=== PATIENT | male | born 1950 | race Caucasian/White ===

== ENCOUNTER 2020-06-26 21:26 | Inpatient (IN) ==
[2020-06-26 21:36] LABS: ABG BASE EXCESS 7.1 mmol/L (-2.0-2.0)
[2020-06-26 21:37] LABS: ABG ALLEN TEST POS; ABG HCO3 31.3 mmol/L (22-26)
--- NOTE | 2020-06-26 21:43 | DR.SOBA ---
HPI - Time Seen Time seen: 21:39 - Complaints Chief Complaint Doctors Comments: Patient from [place] complaining of SOB with low O2 Sat at home in the 70 range as related by EMS. EMS states patient refused to go to the hospital in [place] and insisted on them bringing him to [place]. states they had set down for dinner when he started complaining of SOB and they were unable to get his O2 Sat up and they called the ambulance. EMS states the patient was on a non-rebreather at home with on 5 liters with 70% saturation. States they changed it to 4 liter [place] with O2 Sat coming up to 90. Patient has an IV in his right hand by home health because he was not eating or drinking much do to sores on his lip and on his mouth. He is complaining of lower abdominal pain. He is a patient of Dr. Costa. He denies tobacco, alcohol or drug usage. States he had open heart surgery 47 years ago. He was diagnosed with COVID and stayed in the hospital six days. 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 - COVID-19 Coronavirus risk:travel/contact w/high risk person: No Has patient experienced Coronavirus symptoms: Yes Coronavirus symptoms experienced: Fever, Shortness of Breath - Reviewed Nurses Notes Reviewed: Yes - Source History Provided: Patient, Family Member - Mode of Arrival Mode of Arrival: EMS - Duration Duration: Unknown - Context Onset:: At Rest PE Risk Factors:: None History of:: None Currently on:: Neither Prehospital Care:: O2 - Modifying Factors Worsens:: Nothing Improves:: Nothing - Associated Signs and Symptoms Associated Signs and Symptoms: None - If Cough Cough: None PMH - Travel Risk Coronavirus risk:travel/contact w/high risk person: No Has patient experienced Coronavirus symptoms: Yes Coronavirus symptoms experienced: Fever, Shortness of Breath ROS - Review of Systems Constitutional: No Symptoms Reported, Loss of Appetite (sore on right lower lip) Eyes: No Symptoms Reported ENTM: No Symptoms Reported Respiratoy: No Symptoms Reported, Short of Breath Cardiovascular: No Symptoms Reported. negative: See HPI, Chest Pain, Edema, Palpitations, Syncope, Cyanosis, Skin Mottling, Other Gastrointestinal/Abdominal: No Symptoms Reported, Abdominal Pain (suprapubic pain) Genitourinary: No Symptoms Reported, Pain Neurological: No Symptoms Reported Musculoskeletal: No Symptoms Reported Integumentary: No Symptoms Reported Hematologic/Lymphatic: No Symptoms Reported. negative: See HPI, Anemia, Blood Clots, Easy Bleeding, Easy Bruising, Swollen Glands, Lymphadenopathy, Other Endocrine: No Symptoms Reported Psychiatric: No Symptoms Reported. negative: See HPI, Anxiety, Depression, Hallucinations, Excessive crying, Suicidal, Other PE - General Limitations: No Limitations General Appearance: Alert, In Distress (moderate) - Head Head Exam: Normal Inspection, Atraumatic, Normocephalic - Eyes Eye exam: Normal Appearance, PERRL, EOMI. negative: Scleral Icterus, Conjunctival Injection, Nystagmus, Miosis, Mydrasis, Periorbital Swelling, Periorbital Tenderness, Other - ENT ENT Exam: Normal Exam, Normal Oropharynx, Normal External Ear Exam, Mucous Membranes Moist, Mucous Membranes Dry (right lower lip with 2 cm ulceration with white coating), TM's Normal Bilaterally, Other (dentures) - Neck Neck Exam: Normal Inspection, Full ROM, Trachea Midline. negative: Tenderness, Meningismus, Lymphadenopathy, Thyromegaly, Other - Chest Chest Inspection: Normal Inspection, Symmetric Chest Wall Rise. negative: Tenderness, Rash, Abscess, Other - Respiratory Respiratory Exam: Normal Lung Sounds Bilat Respiratory Exam: Bilateral Clear to Auscultation, Bilateral Decreased Breath Sounds - Cardiovascular Cardiovascular Exam: Regular Rate, Normal Rhythm, Normal Heart Sounds, Systolic Murmur - Abdominal Exam Abdominal Exam: Normal Inspection, Normal Bowel Sounds, Soft, Tenderness (suprapubic tenderness) Abdominal Tenderness: Suprapubic, Moderate - Extremities Extremities Exam: Normal Inspection, Full ROM, Normal Capillary Refill. negative: Tenderness (left lower leg with healing abrasions) - Back Back Exam: Normal Inspection, Full ROM. negative: Tenderness, (R) CVA Te nderness, (L) CVA Tenderness, Muscle Spasm, Paraspinal Tenderness, Vertebral Tenderness, Rashes, (R) Sciatic Notch Tenderness, (L) Sciatic Notch Tendern, (R) Straight Leg Raise, (L) Straight Leg Raise, Other - Neurologic Neurological Exam: Alert, Oriented X3, CN II-XII Intact, Reflexes Normal. negative: Normal Gait (gait not tested) - Psychiatric Psychiatric Exam: Normal Affect, Normal Mood - Skin Skin Exam: Warm, Dry, Intact, Normal Color. negative: Rash, Cyanosis, Diaphoresis, Erythema, Pallor, Mottled, Other - Vital Signs Vitals: Temperature 99.2 F Pulse Rate 90 Respiratory Rate 26 Blood Pressure 107/61 O2 Sat by Pulse Oximetry 97 Course - Reevaluation 1st: Improved - Consultation Called: 23:39 Call Returned: 23:44 (Dr. Mcgregor to admit give ROcephin, Zithromax and Solumedrole) - Education/Counseling Education/Counseling: Patient, Family Educated On: Treatment, Diagnosis, Needs for Follow Up ROR - Labs Reviewed Laboratory Results Reviewed?: Yes (All labs and x-ray results reviewed and discussed with patient and spouse) Result Diagrams: 06/26/20 21:50 06/26/20 21:50 - XRAY XRAY Interpreted by: Radiologist (CXR: Findings are concerning for multifocal pneumonia which may be sukperimposed on chronic interstitial changes) - EKG Rate: 89 [place]: Normal Rhythm: NSR Block: None Hypertrophy: LVH ST: Nonsp - Labs Reviewed Laboratory: WBC 6.1 X10^3/uL (3.6-10.0) 06/26/20 21:50 RBC 3.06 X10^6/uL (4.7-6.0) L 06/26/20 21:50 Hgb 10.0 g/dL (13.5-18.0) L 06/26/20 21:50 Hct 30.3 % (42.0-54.0) L 06/26/20 21:50 MCV 99.1 fL (80.0-100.0) 06/26/20 21:50 MCH 32.6 pg (27.0-34.0) 06/26/20 21:50 MCHC 32.9 g/dL (33.0-35.0) L 06/26/20 21:50 RDW 14.8 % (11.6-16.5) 06/26/20 21:50 Plt Count 207 X10^3/uL (150.0-450.0) 06/26/20 21:50 MPV 7.7 fL (7.4-11.0) 06/26/20 21:50 Neut % (Auto) 82.9 % (42.0-75.0) H 06/26/20 21:50 Lymph % (Auto) 8.8 % (21.0-51.0) L 06/26/20 21:50 Mcdowell % (Auto) 5.5 % (0.0-13.0) 06/26/20 21:50 Eos % (Auto) 2.6 % (0.9-2.9) 06/26/20 21:50 Baso % (Auto) 0.2 % (0.2-1.0) 06/26/20 21:50 Neut # (Auto) 5.0 x10^3/uL (2.2-4.8) H 06/26/20 21:50 Lymph # (Auto) 0.5 X10^3/uL (1.3-2.9) L 06/26/20 21:50 Mcdowell # (Auto) 0.3 x10^3/uL (0.3-0.8) 06/26/20 21:50 Eos # (Auto) 0.2 x10^3/uL (0.0-0.2) 06/26/20 21:50 Baso # (Auto) 0.0 X10^3/uL (0.0-0.1) 06/26/20 21:50 Absolute Nucleated RBC 0.0 /100WBC 06/26/20 21:50 PT 20.2 SECONDS (11.8-14.3) 06/26/20 21:50 INR Target Range - 06/26/20 21:50 INR 1.79 (0.8-1.3) H 06/26/20 21:50 APTT 67.0 SECONDS (22.9-36.5) H 06/26/20 21:50 PTT Comment - 06/26/20 21:50 Sample Site Lr 06/26/20 22:01 ABG pH 7.500 (7.35-7.45) H 06/26/20 22:01 ABG pCO2 41.0 mmHg (35.0-45.0) 06/26/20 22:01 ABG pO2 78.0 mmHg (80.0-100.0) L 06/26/20 22:01 ABG HCO3 32.0 mmol/L (22-26) H* 06/26/20 22:01 ABG O2 Saturation 97.0 % (90-100) 06/26/20 22:01 ABG Base Excess 8.1 mmol/L (-2.0-2.0) H 06/26/20 22:01 Mauro Test Pos 06/26/20 22:01 A-a Gradient 584.0 mmHg 06/26/20 22:01 FiO2 100.0 06/26/20 22:01 Blood Gas Comments Mere well sw 06/26/20 22:01 Sodium 134 mmol/L (136-145) L 06/26/20 21:50 Corrected Sodium TNP 06/26/20 21:50 Potassium 4.4 mmol/L (3.5-5.1) 06/26/20 21:50 Chloride 99 mmol/L (98-107) 06/26/20 21:50 Carbon Dioxide 29.9 mmol/L (21-32) 06/26/20 21:50 BUN 16 mg/dL (7-18) 06/26/20 21:50 Creatinine 1.04 mg/dL (0.70-1.30) 06/26/20 21:50 Est GFR (MDRD) Af Amer > 60 (>60) 06/26/20 21:50 Est GFR (MDRD) Non-Af > 60 (>60) 06/26/20 21:50 Glucose 94 mg/dL (65-99) 06/26/20 21:50 Calcium 8.5 mg/dL (8.5-10.1) 06/26/20 21:50 Corrected Calcium 10.3 mg/dL (8.5-10.1) H 06/26/20 21:50 Magnesium 2.2 mg/dL (1.7-2.9) 06/26/20 21:50 Total Bilirubin 0.60 mg/dL (0.2-1.0) 06/26/20 21:50 AST 32 Units/L (15-37) 06/26/20 21:50 ALT 16 Units/L (12-78) 06/26/20 21:50 Alkaline Phosphatase 105 Units/L (46-116) 06/26/20 21:50 Creatine Kinase 87 Units/L (39-308) 06/26/20 21:50 CK-MB (CK-2) < 1.0 ng/mL (0-4.0) 06/26/20 21:50 CK/CKMB % Calc 1.2 % (<4) 06/26/20 21:50 Troponin I 0.02 ng/mL (0-1.5) 06/26/20 21:50 B-Natriuretic Peptide 488 pg/mL (0-79) H 06/26/20 21:50 Total Protein 6.1 g/dL (6.4-8.2) L 06/26/20 21:50 Albumin 1.8 g/dL (3.4-5.0) L 06/26/20 21:50 Globulin 4.3 g/dL (2.5-4.5) 06/26/20 21:50 Albumin/Globulin Ratio 0.4 Ratio (1.1-2.1) L 06/26/20 21:50 Amylase 70 Units/L (25-115) 06/26/20 21:50 Lipase 51 Units/L (73-393) L 06/26/20 21:50 Specimen Type Catherized urine 06/26/20 21:43 Urine Color Yellow (YELLOW) 06/26/20 21:43 Urine Appearance Cloudy (CLEAR) 06/26/20 21:43 Urine pH 5.0 (5.0 - 8.0) 06/26/20 21:43 Ur Specific Eva 1.025 (1.000-1.030) 06/26/20 21:43 Urine Protein 3+ (NEGATIVE) 06/26/20 21:43 Urine Glucose (UA) Negative (NEGATIVE) 06/26/20 21:43 Urine Ketones Negative (NEGATIVE) 06/26/20 21:43 Urine Occult Blood 4+ (NEGATIVE) 06/26/20 21:43 Urine Nitrite Negative (NEGATIVE) 06/26/20 21:43 Urine Bilirubin Negative (NEGATIVE) 06/26/20 21:43 Urine Urobilinogen Normal (NORMAL) 06/26/20 21:43 Ur Leukocyte Esterase 3+ (NEGATIVE) 06/26/20 21:43 Urine RBC 0-2 /HPF (0-3) 06/26/20 21:43 Urine WBC Tntc /HPF (0-5) A 06/26/20 21:43 Ur Squamous Epith Cells Negative /HPF (NEGATIVE) 06/26/20 21:43 Urine Bacteria 3+ /HPF (NEGATIVE) 06/26/20 21:43 Urine Mucus Moderate /HPF (NEGATIVE) 06/26/20 21:43 Ur Culture Indicated? Yes/culture set up 06/26/20 21:43 SARS-CoV-2 (PCR) Positive (NEGATIVE) A 06/26/20 22:11 Influenza Type A (PCR) Negative (NEGATIVE) 06/26/20 22:11 Influenza Type B (PCR) Negative (NEGATIVE) 06/26/20 22:11 RSV (PCR) Negative (NEGATIVE) 06/26/20 22:11 - XRAY Xray Findings: CT abdomen/pelvis: Rectal wall thickening suggesting possible proctitis. Bibasilar infiltrates with bronchiectasis. (JACINTO DANIELSON) Opioid - Opioid Risk Tool Age (Spike box if 16-45): No Total: 0 Total Score Risk Category: Low Risk - Diagnosis Discharge Problem: Hypoxemia, Multifocal pneumonia, COVID-19 virus infection, Acute urinary retention, Stomatitis, ulcerative Urinary tract infection Qualifiers: Encounter type: initial encounter Pulmonary embolism Qualifiers: Chronicity: unspecified Acute cor pulmonale presence: unspecified - Discharge Plan Disposition: ADMITTED INPATIENT Condition: Stable - Follow ups/Referrals Follow ups/Referrals: MAURO COSTA [Primary Care Provider] - 3 days - Instructions
[2020-06-26 22:21] LABS: BASOPHILS % (AUTO) 0.2 % (0.2-1.0); EOSINOPHILS # (AUTO) 0.2 x10^3/uL (0.0-0.2); EOSINOPHILS % (AUTO) 2.6 % (0.9-2.9); HEMATOCRIT 30.3 % (42.0-54.0); LYMPHOCYTES # (AUTO) 0.5 X10^3/uL (1.3-2.9); LYMPHOCYTES % (AUTO) 8.8 % (21.0-51.0); MEAN CORPUSCULAR HEMOGLOBIN 32.6 pg (27.0-34.0); MEAN CORPUSCULAR HGB CONC 32.9 g/dL (33.0-35.0); MEAN CORPUSCULAR VOLUME 99.1 fL (80.0-100.0); MEAN PLATELET VOLUME 7.7 fL (7.4-11.0); MONOCYTES # (AUTO) 0.3 x10^3/uL (0.3-0.8); MONOCYTES % (AUTO) 5.5 % (0.0-13.0); NEUTROPHILS % (AUTO) 82.9 % (42.0-75.0); PLATELET COUNT 207 X10^3/uL (150.0-450.0); RED BLOOD COUNT 3.06 X10^6/uL (4.7-6.0); RED CELL DISTRIBUTION WIDTH 14.8 % (11.6-16.5); WHITE BLOOD COUNT 6.1 X10^3/uL (3.6-10.0)
[2020-06-26 22:25] LABS: ABG BASE EXCESS 8.1 mmol/L (-2.0-2.0)
[2020-06-26 22:26] LABS: ABG ALLEN TEST POS
[2020-06-26 22:28] LABS: BILIRUBIN,URINE NEGATIVE (NEGATIVE); BLOOD/HEMOGLOBIN,URINE 4+ (NEGATIVE); GLUCOSE, URINE NEGATIVE (NEGATIVE); KETONES,URINE NEGATIVE (NEGATIVE); LEUKOCYTE ESTERASE ,URINE 3+ (NEGATIVE); NITRITES,URINE NEGATIVE (NEGATIVE); PROTEIN,URINE 3+ (NEGATIVE); UROBILINOGEN,URINE NORMAL (NORMAL)
[2020-06-26 22:35] LABS: BLOOD UREA NITROGEN 16 mg/dL (7-18); CALCIUM 8.5 mg/dL (8.5-10.1); CARBON DIOXIDE 29.9 mmol/L (21-32); CHLORIDE 99 mmol/L (98-107); CREATININE 1.04 mg/dL (0.70-1.30); SODIUM 134 mmol/L (136-145); TROPONIN I 0.02 ng/mL (0-1.5); eGFR NON BLACK RACES > 60 (>60)
[2020-06-26 22:39] LABS: ALANINE AMINOTRANSFERASE 16 Units/L (12-78); ALBUMIN 1.8 g/dL (3.4-5.0); ALKALINE PHOSPHATASE 105 Units/L (46-116); AMYLASE 70 Units/L (25-115); ASPARTATE AMINO TRANSFERASE 32 Units/L (15-37); CKMB % 1.2 % (<4); COR CA(FOR HYPOALB) 10.3 mg/dL (8.5-10.1); CREATINE KINASE 87 Units/L (39-308); CREATINE KINASE MB < 1.0 ng/mL (0-4.0); LIPASE 51 Units/L (73-393); MAGNESIUM 2.2 mg/dL (1.7-2.9); TOTAL PROTEIN 6.1 g/dL (6.4-8.2)
[2020-06-26 22:44] LABS: APPEARANCE,URINE CLOUDY (CLEAR); BACTERIA,URINE 3+ /HPF (NEGATIVE); COLOR,URINE YELLOW (YELLOW); MUCUS,URINE MODERATE /HPF (NEGATIVE); RBC,URINE 0-2 /HPF (0-3); SQUAMOUS EPITHELIAL CELL,UR NEGATIVE /HPF (NEGATIVE)
--- NOTE | 2020-06-26 22:52 | RAD ---
HISTORYShortness of breathSTUDYCHEST, 1 VIEWCOMPARISONNone availableTECHNIQUEChest radiographic imaging, AP portable projection, 1 imageFINDINGSNo cardiomegaly.Status post median sternotomy.Diffuse increased interstitial markings and bilateral diffuse hazy airspace opacities.No pleural effusion.No pneumothorax.No acute osseous abnormality.IMPRESSIONFindings are concerning for multifocal pneumonia which may be a superimposed on chronic interstitial changes.Electronically signed by: Joseph Lazo (Jun 26, 2020 22:49:53)
[2020-06-26] MEDS ORDERED: ROCEPHIN VIAL 1 GRAM 1 G in NS 100 ML IV + SPIKE MINIBAG* 100 ML IV ONE (23:03)
[2020-06-26] MEDS ORDERED: LASIX IVP STA (23:04)
[2020-06-26] MEDS ORDERED: LASIX ONE (23:06)
[2020-06-26] MEDS ORDERED: NS 100 ML IV + SPIKE MINIBAG* 100 ML IV ONE (23:06)
[2020-06-26] MEDS ORDERED: ROCEPHIN VIAL 1 GRAM ONE (23:06)
--- NOTE | 2020-06-26 23:14 | CT ---
HISTORYAbdominal painSTUDYABDOMEN/PELVIS W/O CONCOMPARISONNoneTECHNIQUEMultiple axial images of the abdomen and pelvis were obtained from the lung bases to the pubic symphysis without the administration of IV contrast. Dose reduction techniques including Automated Exposure Control (AEC) and adjustment of mA and kV were utilized.FINDINGSThe visualized portions of the lung bases demonstrate none bibasilar infiltrates with bronchiectasis. No pleural effusion. Coronary artery calcification.. The liver, spleen, pancreas, kidneys, and adrenal glands are unremarkable in their CT appearance. The gallbladder is unremarkable in its CT appearance . No significant mesenteric lymphadenopathy or stranding can be observed. No free fluid or free air is seen within the abdomen. There is mild rectal wall thickening.. The colon is unremarkable. Specifically, there is no diverticulosis noted within the sigmoid colon. There is a Mehta catheter within the urinary bladder a as well as air likely related to catheterization. The bony structures are grossly intact.IMPRESSIONRectal wall thickening suggesting possible proctitis. Correlate clinically.Bibasilar infiltrates with bronchiectasis.Electronically signed by: Oneil Maddox (Jun 26, 2020 23:12:30)
[2020-06-26] MEDS ORDERED: PHARMACY CONSULT - IVERMECTIN XX SCH (23:45)
[2020-06-27] MEDS ORDERED: IVERMECTIN PO SCH (01:00)
[2020-06-27] MEDS ORDERED: RESTORIL CAP 15 MG PO PRN (01:57)
[2020-06-27] MEDS: ZITHROMAX INJ 500 MG VIAL 500 MG in NS 250 ML IV 250 ML IV SCH ×2 (02:19→22:58)
[2020-06-27] MEDS: NS 1000 ML 1,000 ML IV SCH ×2 (02:21→23:02)
[2020-06-27] MEDS ORDERED: MILK OF MAGNESIA PO PRN (02:26)
[2020-06-27] MEDS: ASCORBIC ACID INJ MULTI-DOSE VIAL 1,500 MG in NS 100 ML IV 100 ML IV SCH ×4 (02:38→21:00)
[2020-06-27] MEDS: BROVANA IN SCH ×3 (02:40→21:24)
[2020-06-27] MEDS: PULMICORT NEB TX 0.5 MG NEB SCH ×3 (02:40→21:32)
[2020-06-27 04:53] LABS: BASOPHILS % (AUTO) 0.7 % (0.2-1.0); EOSINOPHILS # (AUTO) 0.1 x10^3/uL (0.0-0.2); EOSINOPHILS % (AUTO) 1.7 % (0.9-2.9); HEMATOCRIT 29.8 % (42.0-54.0); HEMOGLOBIN 9.9 g/dL (13.5-18.0); LYMPHOCYTES # (AUTO) 0.8 X10^3/uL (1.3-2.9); LYMPHOCYTES % (AUTO) 14.2 % (21.0-51.0); MEAN CORPUSCULAR HEMOGLOBIN 32.6 pg (27.0-34.0); MEAN CORPUSCULAR HGB CONC 33.1 g/dL (33.0-35.0); MEAN CORPUSCULAR VOLUME 98.5 fL (80.0-100.0); MONOCYTES # (AUTO) 0.3 x10^3/uL (0.3-0.8); MONOCYTES % (AUTO) 5.7 % (0.0-13.0); NEUTROPHILS # (AUTO) 4.3 x10^3/uL (2.2-4.8); NEUTROPHILS % (AUTO) 77.7 % (42.0-75.0); PLATELET COUNT 184 X10^3/uL (150.0-450.0); RED BLOOD COUNT 3.02 X10^6/uL (4.7-6.0); RED CELL DISTRIBUTION WIDTH 14.7 % (11.6-16.5); WHITE BLOOD COUNT 5.6 X10^3/uL (3.6-10.0)
[2020-06-27 05:10] LABS: ALANINE AMINOTRANSFERASE 15 Units/L (12-78); ALBUMIN 1.7 g/dL (3.4-5.0); ALKALINE PHOSPHATASE 99 Units/L (46-116); ASPARTATE AMINO TRANSFERASE 28 Units/L (15-37); BLOOD UREA NITROGEN 14 mg/dL (7-18); CALCIUM 8.2 mg/dL (8.5-10.1); CARBON DIOXIDE 30.5 mmol/L (21-32); CHLORIDE 100 mmol/L (98-107); CREATININE 0.99 mg/dL (0.70-1.30); SODIUM 138 mmol/L (136-145); TOTAL PROTEIN 5.8 g/dL (6.4-8.2); eGFR NON BLACK RACES > 60 (>60)
[2020-06-27 05:19] LABS: ABG BASE EXCESS 8.2 mmol/L (-2.0-2.0)
[2020-06-27 05:21] LABS: ABG ALLEN TEST POS; ABG HCO3 33.9 mmol/L (22-26)
[2020-06-27] MEDS: IVERMECTIN PO SCH (05:44)
[2020-06-27] MEDS: ATIVAN TAB 1 MG PO SCH ×3 (05:44→23:02)
[2020-06-27] MEDS ORDERED: NYSTATIN SUSP PO SCH (06:00)
[2020-06-27] MEDS ORDERED: TRICOR TAB 160 MG ONE (07:18)
[2020-06-27] MEDS ORDERED: THIAMINE HCL INJ ONE (07:18)
[2020-06-27] MEDS ORDERED: PEPCID TAB 20 MG ONE (07:18)
[2020-06-27] MEDS ORDERED: PLAVIX ONE (07:18)
[2020-06-27] MEDS ORDERED: ELIQUIS ONE (07:18)
[2020-06-27] MEDS ORDERED: VITAMIN D (1.25MG) PO ONE (07:19)
[2020-06-27] MEDS: THIAMINE HCL INJ IVP SCH ×2 (08:59→21:00)
[2020-06-27] MEDS: TRICOR TAB 160 MG PO SCH (08:59)
[2020-06-27] MEDS ORDERED: VITAMIN A PO SCH (09:00)
[2020-06-27] MEDS: PEPCID TAB 40 MG PO SCH ×2 (09:00→23:04)
[2020-06-27] MEDS: ELIQUIS PO SCH ×2 (09:00→21:00)
[2020-06-27] MEDS ORDERED: VITAMIN D (1.25MG) PO SCH (09:00)
[2020-06-27] MEDS: PLAVIX PO SCH (09:00)
[2020-06-27] MEDS: COREG TAB 6.25 MG PO SCH ×2 (09:01→23:06)
[2020-06-27] MEDS: SOLU-Medrol 40 MG VIAL IVP SCH ×4 (09:03→23:03)
[2020-06-27] MEDS ORDERED: MORPHINE SULFATE INJ 2 MG INJ ONE (11:17)
[2020-06-27 11:33] LABS: ABG BASE EXCESS 10.2 mmol/L (-2.0-2.0)
[2020-06-27 11:36] LABS: ABG ALLEN TEST POS
[2020-06-27] MEDS: MORPHINE SULFATE INJ 2 MG INJ IVP PRN ×3 (12:03→23:06)
[2020-06-27 12:55] LABS: ABG BASE EXCESS 8.4 mmol/L (-2.0-2.0)
[2020-06-27 12:56] LABS: ABG ALLEN TEST POS
--- NOTE | 2020-06-27 14:24 | DR.H&P ---
H&P - History & Physical for Day of: H&P Date: 06/27/20 - Chief Complaint Chief Complaint: SOB, WEAKNESS - History of Present Illness History of Present Illness: Patient from [place] complaining of SOB with low O2 Sat at home in the 70 range as related by EMS. EMS states patient refused to go to the hospital in [place] and insisted on them bringing him to [place]. states they had set down for dinner when he started complaining of SOB and they were unable to get his O2 Sat up and they called the ambulance. EMS states the patient was on a non-rebreather at home with on 5 liters with 70% saturation. States they changed it to 4 liter [place] with O2 Sat coming up to 90. Patient has an IV in his right hand by home health because he was not eating or drinking much do to sores on his lip and on his mouth. He is complaining of lower abdominal pain. He is a patient of Dr. Bagley. He denies tobacco, alcohol or drug usage. States he had open heart surgery 47 years ago. He was diagnosed with COVID and stayed in the hospital six days. 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 - Past Medical History Past Medical History: Anxiety, Coronary Artery Disease, Hypertension - Past Surgical History Surgical History: CABG/Valve Surgery, Ortho Surgery Additional Surgical History: CARDIAC STENTING IN 2011 AND 2015 - Social History Does patient currently use any type of tobacco product: No Have you used tobacco products in the last 12 months: No Type of Tobacco Use: None Does any household member use tobacco: No Alcohol Use: None Drug Use: None - Medications Home Medications: No Known Drug Allergies Allergy (Verified 06/26/20 21:29) CONTINUE taking the following medications amlodipine 5 mg PO DAILY 06/26/20 [History] apixaban [Eliquis] 5 mg PO BID 06/26/20 [History] baclofen 20 mg PO BID 06/26/20 [History] carvedilol [Coreg] 6.25 mg PO BID 06/26/20 [History] citalopram 40 mg PO HS 06/26/20 [History] clopidogrel 75 mg PO DAILY 06/26/20 [History] gabapentin 100 mg PO TID 06/26/20 [History] hydrocodone-acetaminophen 1 tab PO TID 06/26/20 [History] linaclotide [Linzess] 1 mcg PO BID 06/26/20 [History] lorazepam 1 mg PO BID 06/26/20 [History] nystatin 15 ml BUCCAL DIRECTED 06/26/20 [History] ondansetron HCl [Zofran] 8 mg PO Q8H 06/26/20 [History] rosuvastatin [Crestor] 10 mg PO DAILY 06/26/20 [History] tramadol 50 mg PO BID PRN 06/26/20 [History] - Review of Systems Constitutional: Weakness, Malaise Eyes: No Symptoms Reported ENT: No Symptoms Reported Respiratory: Shortness of Breath, SOB with Excertion Cardiovascular: Light Headedness Gastrointestinal: Nausea, Abdominal Pain Genitourinary: No Symptoms Reported Musculoskeletal: No Symptoms Reported Skin: No Symptoms Reported Neurological: Weakness - Physical Exam Vital Signs: Temperature 98.7 F Pulse Rate 96 Respiratory Rate 39 Blood Pressure 98/59 O2 Sat by Pulse Oximetry 91 Oriented: Person Eyes: Normal Ear: Normal Nose: Normal Throat: Normal Respiratory: Diminished Throughout, RLL Diminished, LLL Diminished Cardiovascular: Tachycardia. negative: Edema Auscultation: Bowel Sounds: Normal Palpation: Normal Tenderness: Normal Skin: Decreased Turg[place], Wound (DEEP ABRASION WITH THICK SCABBING TO LEFT CARTER), Bruising Musculoskeletal: Leg, Instability Mood Description: Anxious Affect: Anxious Speech Pattern: Clear, Appropriate - Assessment/Plan (1) Hypoxemia Status: Acute Plan: ADMIT, ICU SUPPLEMENTAL O2, CONTINUOUS CARDIAC MONITORING. CONTINUE AN TICOAGULANT THERAPY, EKG, CXR AND BLOOD GAS ON ADMISSION. STRICT I&OS, BC AND UC. VERIFY HOME MEDICATION, ISOLATION, IV ATBX THERAPY (2) Multifocal pneumonia Status: Acute (3) COVID-19 virus infection Status: Acute (4) Acute urinary retention Status: Acute (5) Pulmonary embolism Qualifiers: Chronicity: unspecified Acute cor pulmonale presence: unspecified Status: Acute (6) Stomatitis, ulcerative Status: Acute (7) CAD (coronary artery disease) Status: Acute - Allergies Allergies/Adverse Reactions: Allergies Allergy/AdvReac Type Severity Reaction Status Date / Time No Known Drug Allergies Allergy Verified 06/26/20 21:29
[2020-06-27] MEDS ORDERED: OFIRMEV IV 1000 MG VIAL 1,000 MG/100 ML VIAL IV ONE (16:11)
[2020-06-27] MEDS ORDERED: OFIRMEV IV 1000 MG VIAL 1,000 MG/100 ML VIAL IV PRN (16:26)
[2020-06-27 18:28] LABS: ABG HCO3 35.6 mmol/L (22-26)
[2020-06-27 18:53] VITALS: BMI 21.4
[2020-06-27] MEDS: ROCEPHIN VIAL 1 GRAM 1 G in NS 100 ML IV + SPIKE MINIBAG* 100 ML IV SCH (21:00)
[2020-06-27] MEDS: MELATONIN PO SCH (21:00)
[2020-06-27] MEDS: CELEXA PO SCH (23:06)
[2020-06-28] MEDS: ASCORBIC ACID INJ MULTI-DOSE VIAL 1,500 MG in NS 100 ML IV 100 ML IV SCH ×4 (03:00→21:45)
[2020-06-28] MEDS: SOLU-Medrol 40 MG VIAL IVP SCH ×4 (04:30→20:30)
[2020-06-28 05:40] LABS: ABG BASE EXCESS 8.6 mmol/L (-2.0-2.0)
[2020-06-28 05:41] LABS: ABG ALLEN TEST POS; ABG HCO3 34.5 mmol/L (22-26)
[2020-06-28] MEDS: ATIVAN TAB 1 MG PO SCH ×3 (05:42→21:00)
[2020-06-28 06:08] LABS: BASOPHILS % (AUTO) 0.3 % (0.2-1.0); HEMATOCRIT 26.9 % (42.0-54.0); HEMOGLOBIN 9.2 g/dL (13.5-18.0); LYMPHOCYTES # (AUTO) 0.4 X10^3/uL (1.3-2.9); MEAN CORPUSCULAR HEMOGLOBIN 33.5 pg (27.0-34.0); MEAN CORPUSCULAR HGB CONC 34.2 g/dL (33.0-35.0); MEAN CORPUSCULAR VOLUME 97.9 fL (80.0-100.0); MEAN PLATELET VOLUME 8.2 fL (7.4-11.0); MONOCYTES # (AUTO) 0.1 x10^3/uL (0.3-0.8); NEUTROPHILS # (AUTO) 2.5 x10^3/uL (2.2-4.8); NEUTROPHILS % (AUTO) 83.7 % (42.0-75.0); PLATELET COUNT 184 X10^3/uL (150.0-450.0); RED BLOOD COUNT 2.75 X10^6/uL (4.7-6.0); RED CELL DISTRIBUTION WIDTH 14.7 % (11.6-16.5)
--- NOTE | 2020-06-28 06:12 | RAD ---
HISTORYPNEUMONIASTUDYCHEST, 1 [id number]/2021FINDINGSThe trachea is midline. The cardiac silhouette is unremarkable. Diffuse increased interstitial markings with bilateral airspace opacities. No pleural effusion or pneumothorax. Median sternotomy wires present.. The bony thorax is unremarkable.IMPRESSIONBilateral airspace opacities consistent with multifocal pneumonia.No significant change from previous 06/26/2020lectronically signed by: Oneil Maddox (Jun 28, 2020 06:11:14)
[2020-06-28 06:23] LABS: ALANINE AMINOTRANSFERASE 14 Units/L (12-78); ALBUMIN 1.6 g/dL (3.4-5.0); ALKALINE PHOSPHATASE 102 Units/L (46-116); ASPARTATE AMINO TRANSFERASE 23 Units/L (15-37); BLOOD UREA NITROGEN 15 mg/dL (7-18); CALCIUM 8.4 mg/dL (8.5-10.1); CARBON DIOXIDE 32.9 mmol/L (21-32); CHLORIDE 105 mmol/L (98-107); COR CA(FOR HYPOALB) 10.3 mg/dL (8.5-10.1); COR NA(FOR HYPERGLY) 144 mmol/L (136-145); CREATININE 0.82 mg/dL (0.70-1.30); SODIUM 143 mmol/L (136-145); TOTAL PROTEIN 5.7 g/dL (6.4-8.2); eGFR NON BLACK RACES > 60 (>60)
[2020-06-28] MEDS: BROVANA IN SCH ×2 (08:55→21:39)
[2020-06-28] MEDS: PULMICORT NEB TX 0.5 MG NEB SCH ×2 (09:02→21:48)
[2020-06-28] MEDS: COREG TAB 6.25 MG PO SCH ×2 (09:29→22:08)
[2020-06-28] MEDS: PEPCID TAB 40 MG PO SCH ×2 (09:30→20:31)
[2020-06-28] MEDS: ELIQUIS PO SCH ×2 (09:30→20:31)
[2020-06-28] MEDS: IVERMECTIN PO SCH (09:30)
[2020-06-28] MEDS: THIAMINE HCL INJ IVP SCH ×2 (09:31→20:30)
[2020-06-28] MEDS: TRICOR TAB 160 MG PO SCH (09:31)
[2020-06-28] MEDS: PLAVIX PO SCH (09:31)
[2020-06-28] MEDS: VITAMIN D3 125 mcg (5,000 UNITS) PO SCH (09:32)
[2020-06-28] MEDS: VITAMIN A PO SCH (09:32)
[2020-06-28] MEDS: MORPHINE SULFATE INJ 2 MG INJ IVP PRN ×3 (10:59→20:15)
[2020-06-28] MEDS: ROBITUSSIN (PLAIN) PO SCH ×3 (14:13→20:31)
[2020-06-28] MEDS: DULCOLAX TAB EC 5 MG PO SCH ×2 (14:13→20:31)
[2020-06-28] MEDS: NYSTATIN SUSP PO PRN ×2 (14:15→19:16)
[2020-06-28] MEDS: MAALOX or MYLANTA PO PRN (15:29)
[2020-06-28] MEDS: CELEXA PO SCH (20:30)
[2020-06-28] MEDS: ROCEPHIN VIAL 1 GRAM 1 G in NS 100 ML IV + SPIKE MINIBAG* 100 ML IV SCH (20:30)
[2020-06-28] MEDS: MELATONIN PO SCH (20:31)
[2020-06-28] MEDS: ZITHROMAX INJ 500 MG VIAL 500 MG in NS 250 ML IV 250 ML IV SCH (22:31)
[2020-06-29] MEDS: MORPHINE SULFATE INJ 2 MG INJ IVP PRN ×4 (00:17→23:08)
[2020-06-29] MEDS: BUTT CREAM (COMPOUND) TOP PRN ×2 (01:27→10:14)
[2020-06-29] MEDS: SOLU-Medrol 40 MG VIAL IVP SCH ×4 (03:59→20:00)
[2020-06-29] MEDS: ASCORBIC ACID INJ MULTI-DOSE VIAL 1,500 MG in NS 100 ML IV 100 ML IV SCH ×4 (03:59→20:00)
[2020-06-29 05:27] LABS: ABG BASE EXCESS 11.4 mmol/L (-2.0-2.0)
[2020-06-29 05:28] LABS: ABG ALLEN TEST POS; ABG HCO3 36.5 mmol/L (22-26)
[2020-06-29 05:28] LABS: BASOPHILS % (AUTO) 0.3 % (0.2-1.0); HEMATOCRIT 29.7 % (42.0-54.0); HEMOGLOBIN 9.7 g/dL (13.5-18.0); LYMPHOCYTES # (AUTO) 0.5 X10^3/uL (1.3-2.9); LYMPHOCYTES % (AUTO) 8.4 % (21.0-51.0); MEAN CORPUSCULAR HEMOGLOBIN 32.4 pg (27.0-34.0); MEAN CORPUSCULAR HGB CONC 32.8 g/dL (33.0-35.0); MEAN PLATELET VOLUME 8.5 fL (7.4-11.0); MONOCYTES # (AUTO) 0.2 x10^3/uL (0.3-0.8); MONOCYTES % (AUTO) 2.6 % (0.0-13.0); NEUTROPHILS # (AUTO) 5.3 x10^3/uL (2.2-4.8); NEUTROPHILS % (AUTO) 88.7 % (42.0-75.0); PLATELET COUNT 204 X10^3/uL (150.0-450.0); RED CELL DISTRIBUTION WIDTH 15.1 % (11.6-16.5)
[2020-06-29 05:54] LABS: ALANINE AMINOTRANSFERASE 16 Units/L (12-78); ALBUMIN 1.6 g/dL (3.4-5.0); ALKALINE PHOSPHATASE 96 Units/L (46-116); ASPARTATE AMINO TRANSFERASE 22 Units/L (15-37); BLOOD UREA NITROGEN 20 mg/dL (7-18); CALCIUM 8.4 mg/dL (8.5-10.1); CHLORIDE 104 mmol/L (98-107); COR CA(FOR HYPOALB) 10.3 mg/dL (8.5-10.1); COR NA(FOR HYPERGLY) 144 mmol/L (136-145); CREATININE 0.88 mg/dL (0.70-1.30); SODIUM 143 mmol/L (136-145); TOTAL PROTEIN 5.6 g/dL (6.4-8.2); eGFR NON BLACK RACES > 60 (>60)
[2020-06-29] MEDS: ATIVAN TAB 1 MG PO SCH ×3 (06:00→21:00)
--- NOTE | 2020-06-29 06:12 | RAD ---
HISTORYFollow-up COVID-19STUDYChest AP [id number]/08/2021FINDINGSPatient is rotated to the right. Patient is status post median st ernotomy. The heart is upper limits normal in size. Diffuse bilateral interstitial and ground-glass i nfiltrates are unchanged. No pleural effusions are identified. Bony thorax is unremarkable.IMPRESSION No change diffuse bilateral interstitial and some ground-glass infiltrates when compared with the lacey or examinationElectronically signed by: MANOJ BURKS (Jun 29, 2020 06:11:55)
[2020-06-29] MEDS: NS 1000 ML 1,000 ML IV SCH (06:26)
[2020-06-29] MEDS: ELIQUIS PO SCH ×2 (09:04→20:00)
[2020-06-29] MEDS: DULCOLAX TAB EC 5 MG PO SCH ×2 (09:04→20:00)
[2020-06-29] MEDS: IVERMECTIN PO SCH (09:05)
[2020-06-29] MEDS: TRICOR TAB 160 MG PO SCH (09:05)
[2020-06-29] MEDS: THIAMINE HCL INJ IVP SCH ×2 (09:05→20:00)
[2020-06-29] MEDS: ROBITUSSIN (PLAIN) PO SCH ×4 (09:06→20:53)
[2020-06-29] MEDS: PEPCID TAB 40 MG PO SCH ×2 (09:06→20:00)
[2020-06-29] MEDS: PLAVIX PO SCH (09:06)
[2020-06-29] MEDS: VITAMIN A PO SCH (09:07)
[2020-06-29] MEDS: VITAMIN D3 125 mcg (5,000 UNITS) PO SCH (09:07)
[2020-06-29] MEDS: PULMICORT NEB TX 0.5 MG NEB SCH ×2 (09:36→20:36)
[2020-06-29] MEDS: BROVANA IN SCH ×2 (09:40→20:36)
[2020-06-29] MEDS: TYLENOL 325 MG TAB PO PRN (10:17)
[2020-06-29] MEDS: NYSTATIN SUSP PO PRN (10:30)
[2020-06-29] MEDS: NORCO 10/325 TAB PO PRN ×2 (12:40→18:30)
[2020-06-29] MEDS: COREG TAB 6.25 MG PO SCH ×2 (18:00→22:28)
--- NOTE | 2020-06-29 18:26 | PCM.PROG ---
Progress Note - Progress Note for Day of Date of Exam: 06/29/20 - Subjective Subjective: Mr. Webster is a 69-year-old white male who came in the ER with COVID-19 pneumonia with hypoxia. He was diagnosed with COVID-19 approximately three weeks ago. He had previously been at [facility] and was discharged home. The patient became more short of breath and was also diagnosed with PE while he was at [facility] in [place] and was started on Eliquis. We resumed the patients home medications after admission. He does have a history of coronary artery disease and is followed by Dr. Chapin Stanford and Kristin from [place]. Pt is currently tolerating HHF with PO2 at 69 this am. Pt was resting calm this am with spouse reporting he has had increased po intake. Pt denies any chest pain, ECHO ordered for this am. - Past Medical Family Social History Past Med/Fam/Surg Hx: No changes since H&P Allergies: Allergies No Known Drug Allergies Allergy (Verified 06/26/20 21:29) - Review of Systems ROS: No change since H&P - Vital Signs and I&O's Vital Signs: Temperature 97.3 F Pulse Rate 64 Respiratory Rate 22 Blood Pressure 113/57 O2 Sat by Pulse Oximetry 93 Intake and Output: Intake & Output 06/27/20 06/28/20 06/29/20 06/30/20 11:59 11:59 11:59 11:59 Intake Total 812 / 812 1206 / 1206 1955 / 1955 979 / 979 Output Total 1250 / 1250 680 / 680 600 / 600 250 / 250 Balance -438 / -438 526 / 526 1355 / 1355 729 / 729 - Physical Exam Oriented: Person Eyes: Normal Ear: Normal Nose: Normal Throat: Normal Respiratory: Diminished, Wheezes Cardiovascular: Normal. negative: Edema Auscultation: Bowel Sounds: Normal Tenderness: Normal Skin: Decreased Turgur, Wound (DEEP ABRASION WITH THICK SCABBING TO LEFT CARTER), Bruising Musculoskeletal: Leg, Instability Mood Description: Anxious Affect: Anxious Speech Pattern: Clear, Appropriate - Laboratory and Diagnostics Result Diagrams: 06/29/20 04:45 06/29/20 04:45 Labs: 06/27/20 06:09 Sputum - Expectorated Sputum Sputum Culture - Final 06/27/20 06:09 Sputum - Expectorated Sputum - Final 06/26/20 21:43 Urine,Catheterized Urine Culture - Final Enterococcus Faecalis 06/26/20 22:00 Blood Blood Culture - Preliminary 06/26/20 21:50 Blood Blood Culture - Preliminary Laboratory WBC 6.0 X10^3/uL (3.6-10.0) 06/29/20 04:45 RBC 3.00 X10^6/uL (4.7-6.0) L 06/29/20 04:45 Hgb 9.7 g/dL (13.5-18.0) L 06/29/20 04:45 Hct 29.7 % (42.0-54.0) L 06/29/20 04:45 MCV 99.0 fL (80.0-100.0) 06/29/20 04:45 MCH 32.4 pg (27.0-34.0) 06/29/20 04:45 MCHC 32.8 g/dL (33.0-35.0) L 06/29/20 04:45 RDW 15.1 % (11.6-16.5) 06/29/20 04:45 Plt Count 204 X10^3/uL (150.0-450.0) 06/29/20 04:45 MPV 8.5 fL (7.4-11.0) 06/29/20 04:45 Neut % (Auto) 88.7 % (42.0-75.0) H 06/29/20 04:45 Lymph % (Auto) 8.4 % (21.0-51.0) L 06/29/20 04:45 [place] % (Auto) 2.6 % (0.0-13.0) 06/29/20 04:45 Eos % (Auto) 0.0 % (0.9-2.9) L 06/29/20 04:45 Baso % (Auto) 0.3 % (0.2-1.0) 06/29/20 04:45 Neut # (Auto) 5.3 x10^3/uL (2.2-4.8) H 06/29/20 04:45 Lymph # (Auto) 0.5 X10^3/uL (1.3-2.9) L 06/29/20 04:45 [place] # (Auto) 0.2 x10^3/uL (0.3-0.8) L 06/29/20 04:45 Eos # (Auto) 0.0 x10^3/uL (0.0-0.2) 06/29/20 04:45 Baso # (Auto) 0.0 X10^3/uL (0.0-0.1) 06/29/20 04:45 Absolute Nucleated RBC 0.0 /100WBC 06/29/20 04:45 PT 20.2 SECONDS (11.8-14.3) 06/26/20 21:50 INR Target Range - 06/26/20 21:50 INR 1.79 (0.8-1.3) H 06/26/20 21:50 APTT 67.0 SECONDS (22.9-36.5) H 06/26/20 21:50 PTT Comment - 06/26/20 21:50 D-Dimer 2.26 ug/ml (0.0-0.57) H* 06/29/20 04:50 Sample Site Lrad 06/29/20 05:25 ABG pH 7.480 (7.35-7.45) H 06/29/20 05:25 ABG pCO2 49.0 mmHg (35.0-45.0) H 06/29/20 05:25 ABG pO2 70.0 mmHg (80.0-100.0) L 06/29/20 05:25 ABG HCO3 36.5 mmol/L (22-26) H* 06/29/20 05:25 ABG O2 Saturation 95.0 % (90-100) 06/29/20 05:25 ABG Base Excess 11.4 mmol/L (-2.0-2.0) H 06/29/20 05:25 Mauro Test Pos 06/29/20 05:25 A-a Gradient 332.0 mmHg 06/29/20 05:25 FiO2 65.0 06/29/20 05:25 Blood Gas Comments Mere abg well-mtf 06/29/20 05:25 Sodium 143 mmol/L (136-145) 06/29/20 04:45 Corrected Sodium 144 mmol/L (136-145) 06/29/20 04:45 Potassium 4.0 mmol/L (3.5-5.1) 06/29/20 04:45 Chloride 104 mmol/L (98-107) 06/29/20 04:45 Carbon Dioxide 33.0 mmol/L (21-32) H 06/29/20 04:45 BUN 20 mg/dL (7-18) H 06/29/20 04:45 Creatinine 0.88 mg/dL (0.70-1.30) 06/29/20 04:45 Est GFR (MDRD) Af Amer > 60 (>60) 06/29/20 04:45 Est GFR (MDRD) Non-Af > 60 (>60) 06/29/20 04:45 Glucose 157 mg/dL (65-99) H 06/29/20 04:45 POC Glucose (mg/dL) 94 mg/dL (65-99) 06/27/20 16:04 Calcium 8.4 mg/dL (8.5-10.1) L 06/29/20 04:45 Corrected Calcium 10.3 mg/dL (8.5-10.1) H 06/29/20 04:45 Magnesium 2.2 mg/dL (1.7-2.9) 06/26/20 21:50 Total Bilirubin 0.20 mg/dL (0.2-1.0) 06/29/20 04:45 AST 22 Units/L (15-37) 06/29/20 04:45 ALT 16 Units/L (12-78) 06/29/20 04:45 Alkaline Phosphatase 96 Units/L (46-116) 06/29/20 04:45 Creatine Kinase 87 Units/L (39-308) 06/26/20 21:50 CK-MB (CK-2) < 1.0 ng/mL (0-4.0) 06/26/20 21:50 CK/CKMB % Calc 1.2 % (<4) 06/26/20 21:50 Troponin I 0.02 ng/mL (0-1.5) 06/27/20 00:05 B-Natriuretic Peptide 411 pg/mL (0-79) H 06/29/20 04:45 Total Protein 5.6 g/dL (6.4-8.2) L 06/29/20 04:45 Albumin 1.6 g/dL (3.4-5.0) L 06/29/20 04:45 Globulin 4.0 g/dL (2.5-4.5) 06/29/20 04:45 Albumin/Globulin Ratio 0.4 Ratio (1.1-2.1) L 06/29/20 04:45 Amylase 70 Units/L (25-115) 06/26/20 21:50 Lipase 51 Units/L (73-393) L 06/26/20 21:50 Specimen Type Catherized urine 06/26/20 21:43 Urine Color Yellow (YELLOW) 06/26/20 21:43 Urine Appearance Cloudy (CLEAR) 06/26/20 21:43 Urine pH 5.0 (5.0 - 8.0) 06/26/20 21:43 Ur Specific [place] 1.025 (1.000-1.030) 06/26/20 21:43 Urine Protein 3+ (NEGATIVE) 06/26/20 21:43 Urine Glucose (UA) Negative (NEGATIVE) 06/26/20 21:43 Urine Ketones Negative (NEGATIVE) 06/26/20 21:43 Urine Occult Blood 4+ (NEGATIVE) 06/26/20 21:43 Urine Nitrite Negative (NEGATIVE) 06/26/20 21:43 Urine Bilirubin Negative (NEGATIVE) 06/26/20 21:43 Urine Urobilinogen Normal (NORMAL) 06/26/20 21:43 Ur Leukocyte Esterase 3+ (NEGATIVE) 06/26/20 21:43 Urine RBC 0-2 /HPF (0-3) 06/26/20 21:43 Urine WBC Tntc /HPF (0-5) A 06/26/20 21:43 Ur Squamous Epith Cells Negative /HPF (NEGATIVE) 06/26/20 21:43 Urine Bacteria 3+ /HPF (NEGATIVE) 06/26/20 21:43 Urine Mucus Moderate /HPF (NEGATIVE) 06/26/20 21:43 Ur Culture Indicated? Yes/culture set up 06/26/20 21:43 SARS-CoV-2 (PCR) Positive (NEGATIVE) A 06/26/20 22:11 Influenza Type A (PCR) Negative (NEGATIVE) 06/26/20 22:11 Influenza Type B (PCR) Negative (NEGATIVE) 06/26/20 22:11 RSV (PCR) Negative (NEGATIVE) 06/26/20 22:11 - Plan (1) Hypoxemia Status: Acute Plan: ICU SUPPLEMENTAL O2, CONTINUOUS CARDIAC MONITORING. CONTINUE ANTIC OAGULANT THERAPY, EKG, CXR AND BLOOD GAS ON AM. STRICT I&OS, BC AND UC. ISOLATION, IV ATBX THERAPY (2) Multifocal pneumonia Status: Acute (3) COVID-19 virus infection Status: Acute (4) Acute urinary retention Status: Acute (5) Pulmonary embolism Status: Acute Qualifiers: Chronicity: unspecified Acute cor pulmonale presence: unspecified (6) Stomatitis, ulcerative Status: Acute (7) CAD (coronary artery disease) Status: Acute
[2020-06-29] MEDS: CELEXA PO SCH (20:00)
[2020-06-29] MEDS: MELATONIN PO SCH (20:00)
[2020-06-29] MEDS ORDERED: DULCOLAX SUPPOSITORY 10 MG ONE (20:00)
[2020-06-29] MEDS: ROCEPHIN VIAL 1 GRAM 1 G in NS 100 ML IV + SPIKE MINIBAG* 100 ML IV SCH (20:53)
[2020-06-29] MEDS ORDERED: DULCOLAX SUPPOSITORY 10 MG RECTAL ONE (21:00)
[2020-06-29] MEDS ORDERED: ATIVAN INJ 2 MG VIAL IVP ONE (21:12)
[2020-06-29] MEDS ORDERED: ATIVAN INJ 2 MG VIAL ONE (21:14)
[2020-06-29 21:20] LABS: ABG BASE EXCESS 10.8 mmol/L (-2.0-2.0)
[2020-06-29 21:21] LABS: ABG ALLEN TEST POS; ABG HCO3 36.3 mmol/L (22-26)
[2020-06-29] MEDS: ZITHROMAX INJ 500 MG VIAL 500 MG in NS 250 ML IV 250 ML IV SCH (22:28)
[2020-06-29] MEDS: ATIVAN INJ 2 MG VIAL IVP PRN (23:08)
[2020-06-30] MEDS: NORCO 10/325 TAB PO PRN ×3 (00:30→14:50)
[2020-06-30] MEDS: ASCORBIC ACID INJ MULTI-DOSE VIAL 1,500 MG in NS 100 ML IV 100 ML IV SCH ×4 (03:00→20:44)
[2020-06-30] MEDS: SOLU-Medrol 40 MG VIAL IVP SCH ×4 (03:00→20:44)
[2020-06-30] MEDS: ATIVAN INJ 2 MG VIAL IVP PRN (03:00)
[2020-06-30] MEDS: NS 1000 ML 1,000 ML IV SCH ×2 (03:19→23:16)
[2020-06-30] MEDS: MORPHINE SULFATE INJ 2 MG INJ IVP PRN ×2 (03:20→22:30)
[2020-06-30 04:43] LABS: BASOPHILS % (AUTO) 0.4 % (0.2-1.0); HEMOGLOBIN 8.3 g/dL (13.5-18.0); LYMPHOCYTES # (AUTO) 0.4 X10^3/uL (1.3-2.9); LYMPHOCYTES % (AUTO) 5.8 % (21.0-51.0); MEAN CORPUSCULAR HEMOGLOBIN 32.6 pg (27.0-34.0); MEAN CORPUSCULAR HGB CONC 33.2 g/dL (33.0-35.0); MEAN CORPUSCULAR VOLUME 98.5 fL (80.0-100.0); MEAN PLATELET VOLUME 8.6 fL (7.4-11.0); MONOCYTES # (AUTO) 0.1 x10^3/uL (0.3-0.8); MONOCYTES % (AUTO) 1.9 % (0.0-13.0); NEUTROPHILS # (AUTO) 6.7 x10^3/uL (2.2-4.8); NEUTROPHILS % (AUTO) 91.9 % (42.0-75.0); PLATELET COUNT 215 X10^3/uL (150.0-450.0); RED BLOOD COUNT 2.54 X10^6/uL (4.7-6.0); RED CELL DISTRIBUTION WIDTH 14.9 % (11.6-16.5); WHITE BLOOD COUNT 7.3 X10^3/uL (3.6-10.0)
[2020-06-30 05:00] LABS: ALANINE AMINOTRANSFERASE 24 Units/L (12-78); ALBUMIN 1.7 g/dL (3.4-5.0); ALKALINE PHOSPHATASE 91 Units/L (46-116); ASPARTATE AMINO TRANSFERASE 38 Units/L (15-37); BLOOD UREA NITROGEN 19 mg/dL (7-18); CALCIUM 8.2 mg/dL (8.5-10.1); CARBON DIOXIDE 34.3 mmol/L (21-32); CHLORIDE 107 mmol/L (98-107); COR NA(FOR HYPERGLY) 146 mmol/L (136-145); CREATININE 0.81 mg/dL (0.70-1.30); SODIUM 145 mmol/L (136-145); TOTAL PROTEIN 5.3 g/dL (6.4-8.2); eGFR NON BLACK RACES > 60 (>60)
[2020-06-30 06:05] LABS: PLATELET MORPHOLOGY COMMENT NORMAL (NORMAL)
[2020-06-30] MEDS: ATIVAN TAB 1 MG PO SCH ×3 (06:18→21:18)
[2020-06-30 06:24] LABS: ABG BASE EXCESS 10.7 mmol/L (-2.0-2.0)
[2020-06-30 06:25] LABS: ABG ALLEN TEST POS; ABG HCO3 35.7 mmol/L (22-26)
[2020-06-30] MEDS: PULMICORT NEB TX 0.5 MG NEB SCH ×2 (08:15→20:55)
[2020-06-30] MEDS: BROVANA IN SCH ×2 (08:15→20:44)
[2020-06-30] MEDS: COREG TAB 6.25 MG PO SCH ×2 (09:31→20:44)
[2020-06-30] MEDS: DULCOLAX TAB EC 5 MG PO SCH ×2 (09:31→20:45)
[2020-06-30] MEDS: PLAVIX PO SCH (09:32)
[2020-06-30] MEDS: ELIQUIS PO SCH ×2 (09:32→20:44)
[2020-06-30] MEDS: IVERMECTIN PO SCH (09:32)
[2020-06-30] MEDS: PEPCID TAB 40 MG PO SCH ×2 (09:32→20:44)
[2020-06-30] MEDS: ROBITUSSIN (PLAIN) PO SCH ×5 (09:33→20:44)
[2020-06-30] MEDS: VITAMIN D3 125 mcg (5,000 UNITS) PO SCH (09:34)
[2020-06-30] MEDS: TRICOR TAB 160 MG PO SCH (09:34)
[2020-06-30] MEDS: VITAMIN A PO SCH (09:34)
[2020-06-30] MEDS: THIAMINE HCL INJ IVP SCH ×2 (09:34→20:44)
[2020-06-30] MEDS: CELEXA PO SCH (20:44)
[2020-06-30] MEDS: TYLENOL 325 MG TAB PO PRN (20:44)
[2020-06-30] MEDS: MELATONIN PO SCH (20:44)
[2020-06-30] MEDS: ROCEPHIN VIAL 1 GRAM 1 G in NS 100 ML IV + SPIKE MINIBAG* 100 ML IV SCH (21:18)
[2020-06-30] MEDS: ZITHROMAX INJ 500 MG VIAL 500 MG in NS 250 ML IV 250 ML IV SCH (23:00)
[2020-07-01] MEDS: ATIVAN INJ 2 MG VIAL IVP PRN ×2 (00:10→12:39)
[2020-07-01] MEDS: SOLU-Medrol 40 MG VIAL IVP SCH ×4 (03:22→20:28)
[2020-07-01] MEDS: ASCORBIC ACID INJ MULTI-DOSE VIAL 1,500 MG in NS 100 ML IV 100 ML IV SCH ×4 (03:22→20:00)
[2020-07-01] MEDS: MORPHINE SULFATE INJ 2 MG INJ IVP PRN ×2 (03:47→14:45)
[2020-07-01] MEDS: ATIVAN TAB 1 MG PO SCH ×3 (05:44→21:02)
[2020-07-01 05:47] LABS: ABG BASE EXCESS 12.5 mmol/L (-2.0-2.0)
[2020-07-01 05:48] LABS: ABG ALLEN TEST POS; ABG HCO3 37.4 mmol/L (22-26)
[2020-07-01 06:03] LABS: BASOPHILS % (AUTO) 0.1 % (0.2-1.0); HEMATOCRIT 26.4 % (42.0-54.0); HEMOGLOBIN 8.8 g/dL (13.5-18.0); LYMPHOCYTES # (AUTO) 0.4 X10^3/uL (1.3-2.9); LYMPHOCYTES % (AUTO) 6.3 % (21.0-51.0); MEAN CORPUSCULAR HEMOGLOBIN 32.8 pg (27.0-34.0); MEAN CORPUSCULAR HGB CONC 33.3 g/dL (33.0-35.0); MEAN CORPUSCULAR VOLUME 98.4 fL (80.0-100.0); MEAN PLATELET VOLUME 8.9 fL (7.4-11.0); MONOCYTES # (AUTO) 0.1 x10^3/uL (0.3-0.8); NEUTROPHILS % (AUTO) 91.6 % (42.0-75.0); PLATELET COUNT 221 X10^3/uL (150.0-450.0); RED BLOOD COUNT 2.68 X10^6/uL (4.7-6.0); RED CELL DISTRIBUTION WIDTH 14.6 % (11.6-16.5); WHITE BLOOD COUNT 6.5 X10^3/uL (3.6-10.0)
--- NOTE | 2020-07-01 06:13 | RAD ---
HISTORYFollow-up COVID-19STUDYChest AP portableCOMPARISON9 June 2020FINDINGSPatient is rotated to the right. Patient is status post median sternotomy and CABG. The heart is upper limits normal in size. Diffuse bilateral interstitial and ground-glass infiltrates are again identified unchanged in degree or distribution from the prior examination. No pleural effusions are identified. Bony thorax is unremarkable.IMPRESSIONNo change diffuse bilateral interstitial and some ground-glass infiltrates when compared to the prior examinationElectronically signed by: MANOJ BURKS (Jul 01, 2020 06:11:30)
[2020-07-01 06:18] LABS: ALANINE AMINOTRANSFERASE 30 Units/L (12-78); ALBUMIN 1.7 g/dL (3.4-5.0); ALKALINE PHOSPHATASE 101 Units/L (46-116); ASPARTATE AMINO TRANSFERASE 32 Units/L (15-37); BLOOD UREA NITROGEN 15 mg/dL (7-18); CARBON DIOXIDE 35.2 mmol/L (21-32); CHLORIDE 104 mmol/L (98-107); COR CA(FOR HYPOALB) 9.8 mg/dL (8.5-10.1); COR NA(FOR HYPERGLY) 143 mmol/L (136-145); CREATININE 0.73 mg/dL (0.70-1.30); SODIUM 142 mmol/L (136-145); TOTAL PROTEIN 5.3 g/dL (6.4-8.2); eGFR NON BLACK RACES > 60 (>60)
[2020-07-01 06:53] LABS: BAND NEUTROPHILS % 1 % (0-10); PLATELET MORPHOLOGY COMMENT NORMAL (NORMAL)
[2020-07-01] MEDS: TYLENOL 325 MG TAB PO PRN ×3 (07:50→21:02)
[2020-07-01] MEDS: PLAVIX PO SCH (08:48)
[2020-07-01] MEDS: COREG TAB 6.25 MG PO SCH ×3 (08:50→20:26)
[2020-07-01] MEDS: ELIQUIS PO SCH ×2 (08:50→20:27)
[2020-07-01] MEDS: IVERMECTIN PO SCH (08:52)
[2020-07-01] MEDS: DULCOLAX TAB EC 5 MG PO SCH ×3 (08:52→20:27)
[2020-07-01] MEDS: ROBITUSSIN (PLAIN) PO SCH ×5 (08:55→20:27)
[2020-07-01] MEDS: TRICOR TAB 160 MG PO SCH (08:55)
[2020-07-01] MEDS: THIAMINE HCL INJ IVP SCH ×2 (08:56→20:28)
[2020-07-01] MEDS: VITAMIN D3 125 mcg (5,000 UNITS) PO SCH (08:57)
[2020-07-01] MEDS: PEPCID TAB 40 MG PO SCH ×2 (08:58→20:27)
[2020-07-01] MEDS: VITAMIN A PO SCH (08:58)
[2020-07-01] MEDS: BROVANA IN SCH ×2 (09:26→21:30)
[2020-07-01] MEDS: PULMICORT NEB TX 0.5 MG NEB SCH ×2 (09:32→21:38)
[2020-07-01] MEDS ORDERED: LASIX IVP SCH (11:00)
[2020-07-01] MEDS: CELEXA PO SCH (20:26)
[2020-07-01] MEDS: ROCEPHIN VIAL 1 GRAM 1 G in NS 100 ML IV + SPIKE MINIBAG* 100 ML IV SCH (20:27)
[2020-07-01] MEDS: COLACE CAP 100 MG PO PRN (20:27)
[2020-07-01] MEDS: MELATONIN PO SCH (20:27)
[2020-07-01] MEDS: ZITHROMAX INJ 500 MG VIAL 500 MG in NS 250 ML IV 250 ML IV SCH (22:12)
[2020-07-01] MEDS: NS 1000 ML 1,000 ML IV SCH (23:20)
[2020-07-02] MEDS: MORPHINE SULFATE INJ 2 MG INJ IVP PRN ×4 (00:23→22:25)
[2020-07-02] MEDS: ASCORBIC ACID INJ MULTI-DOSE VIAL 1,500 MG in NS 100 ML IV 100 ML IV SCH ×4 (02:06→20:12)
[2020-07-02] MEDS: SOLU-Medrol 40 MG VIAL IVP SCH ×4 (02:07→20:33)
[2020-07-02 05:12] LABS: BASOPHILS % (AUTO) 0.1 % (0.2-1.0); HEMATOCRIT 28.4 % (42.0-54.0); HEMOGLOBIN 9.4 g/dL (13.5-18.0); LYMPHOCYTES # (AUTO) 0.4 X10^3/uL (1.3-2.9); LYMPHOCYTES % (AUTO) 5.2 % (21.0-51.0); MEAN CORPUSCULAR HEMOGLOBIN 32.2 pg (27.0-34.0); MEAN CORPUSCULAR VOLUME 97.6 fL (80.0-100.0); MEAN PLATELET VOLUME 8.5 fL (7.4-11.0); MONOCYTES # (AUTO) 0.2 x10^3/uL (0.3-0.8); MONOCYTES % (AUTO) 2.2 % (0.0-13.0); NEUTROPHILS # (AUTO) 6.6 x10^3/uL (2.2-4.8); NEUTROPHILS % (AUTO) 92.5 % (42.0-75.0); PLATELET COUNT 286 X10^3/uL (150.0-450.0); RED BLOOD COUNT 2.91 X10^6/uL (4.7-6.0); RED CELL DISTRIBUTION WIDTH 14.2 % (11.6-16.5); WHITE BLOOD COUNT 7.1 X10^3/uL (3.6-10.0)
[2020-07-02 05:25] LABS: ALANINE AMINOTRANSFERASE 28 Units/L (12-78); ALBUMIN 1.7 g/dL (3.4-5.0); ALKALINE PHOSPHATASE 94 Units/L (46-116); ASPARTATE AMINO TRANSFERASE 28 Units/L (15-37); BLOOD UREA NITROGEN 17 mg/dL (7-18); CALCIUM 8.2 mg/dL (8.5-10.1); CHLORIDE 101 mmol/L (98-107); COR NA(FOR HYPERGLY) 139 mmol/L (136-145); CREATININE 0.73 mg/dL (0.70-1.30); SODIUM 138 mmol/L (136-145); TOTAL PROTEIN 5.2 g/dL (6.4-8.2); eGFR NON BLACK RACES > 60 (>60)
[2020-07-02 06:01] LABS: BAND NEUTROPHILS % 1 % (0-10)
[2020-07-02 06:02] LABS: HYPOCHROMASIA SLIGHT; PLATELET MORPHOLOGY COMMENT NORMAL (NORMAL); ROULEAUX PRESENT
[2020-07-02 06:08] LABS: ABG ALLEN TEST POS; ABG HCO3 40.9 mmol/L (22-26)
[2020-07-02] MEDS: ATIVAN TAB 1 MG PO SCH ×3 (06:12→21:23)
[2020-07-02] MEDS: BROVANA IN SCH ×2 (09:11→21:55)
[2020-07-02] MEDS: XOPENEX 1.25 MG/3 ML NEBULE NEB SCH ×2 (09:16→23:38)
[2020-07-02] MEDS: MUCOMYST 20% 200 MG/ML NEB SCH ×2 (09:16→21:55)
[2020-07-02] MEDS: PULMICORT NEB TX 0.5 MG NEB SCH ×2 (09:16→21:55)
[2020-07-02] MEDS: COREG TAB 6.25 MG PO SCH ×2 (09:30→20:12)
[2020-07-02] MEDS: VITAMIN D3 125 mcg (5,000 UNITS) PO SCH (09:31)
[2020-07-02] MEDS: VITAMIN A PO SCH (09:32)
[2020-07-02] MEDS: ELIQUIS PO SCH ×2 (09:32→20:12)
[2020-07-02] MEDS: TRICOR TAB 160 MG PO SCH (09:32)
[2020-07-02] MEDS: THIAMINE HCL INJ IVP SCH ×2 (09:33→20:34)
[2020-07-02] MEDS: DULCOLAX TAB EC 5 MG PO SCH ×2 (09:33→21:22)
[2020-07-02] MEDS: ROBITUSSIN (PLAIN) PO SCH ×4 (09:34→21:22)
[2020-07-02] MEDS: PLAVIX PO SCH (09:34)
[2020-07-02] MEDS: PEPCID TAB 40 MG PO SCH ×2 (09:36→20:13)
[2020-07-02] MEDS: COLACE CAP 100 MG PO PRN (09:37)
--- NOTE | 2020-07-02 09:51 | CT ---
HISTORYCOVID, shortness of breathSTUDYCTA chest with contrast for pulmonary embolusTechnique: Axial post-contrast images with coronal, sagittal, and 3 dimensional maximum intensity projection images obtained and evaluated. Dose reduction procedures were used with mA/kv adjusted for body size.COMPARISONNoneFINDINGSThere is no evidence for acute pulmonary thromboembolic disease. Examination of the mediastinum demonstrated no evidence for mediastinal masses, enlarged mediastinal or enlarged hilar adenopathy or significant aortic abnormality. Nonenlarged mediastinal nodes are likely reactive in origin. No pleural effusions are identified. No chest wall or axillary abnormality is identified. Those portions of the upper abdominal organs visualized were within normal limits. Examination of the lung rucker demonstrated diffuse bilateral interstitial and ground-glass infiltrates involving all lung rucker but with slight lower lobe predominance. There is some subpleural sparing and intralobar septal thickening and there appear to be some focal areas of bronchiectasis present. Findings are consistent with multifocal pneumonia which could be bacterial, viral, or atypical viral in origin. COVID 19 lung involvement can have this appearance.IMPRESSIONNo evidence for acute pulmonary thromboembolic diseaseDiffuse bilateral ground-glass and interstitial infiltrates with subpleural sparing, intralobar septal thickening and some bronchiectasis all consistent with multifocal pneumonia. COVID-19 lung involvement can have this appearanceElectronically signed by: MANOJ BURKS (Jul 02, 2020 09:49:51)
[2020-07-02] MEDS ORDERED: LASIX IVP ONE (11:00)
[2020-07-02] MEDS ORDERED: LOPRESSOR INJ 5 MG AMP IVP ONE ×2 (16:03→21:02)
[2020-07-02] MEDS ORDERED: LOPRESSOR INJ 5 MG AMP ONE ×2 (16:15→21:03)
[2020-07-02] MEDS ORDERED: LANOXIN INJ ONE (16:15)
[2020-07-02] MEDS ORDERED: AYR NASAL DROPS ONE (16:29)
[2020-07-02] MEDS ORDERED: LANOXIN INJ IVP ONE (16:30)
[2020-07-02] MEDS: MELATONIN PO SCH (20:12)
[2020-07-02] MEDS: CELEXA PO SCH (20:12)
[2020-07-02] MEDS: ROCEPHIN VIAL 1 GRAM 1 G in NS 100 ML IV + SPIKE MINIBAG* 100 ML IV SCH (20:13)
[2020-07-02] MEDS: ZITHROMAX INJ 500 MG VIAL 500 MG in NS 250 ML IV 250 ML IV SCH (21:23)
[2020-07-02] MEDS: MAALOX or MYLANTA PO PRN (22:26)
[2020-07-03] MEDS: TYLENOL 325 MG TAB PO PRN (00:27)
[2020-07-03] MEDS: NS 1000 ML 1,000 ML IV SCH ×2 (00:27→23:48)
[2020-07-03] MEDS: MORPHINE SULFATE INJ 2 MG INJ IVP PRN ×2 (02:20→08:50)
[2020-07-03] MEDS: SOLU-Medrol 40 MG VIAL IVP SCH ×4 (03:00→20:58)
[2020-07-03] MEDS: ASCORBIC ACID INJ MULTI-DOSE VIAL 1,500 MG in NS 100 ML IV 100 ML IV SCH ×4 (03:00→20:56)
[2020-07-03] MEDS ORDERED: COREG TAB 12.5 MG ONE (04:05)
[2020-07-03] MEDS: COREG TAB 12.5 MG PO SCH ×3 (04:56→20:57)
[2020-07-03] MEDS: ATIVAN TAB 1 MG PO SCH ×3 (05:09→21:02)
[2020-07-03 06:05] LABS: ABG BASE EXCESS 14.3 mmol/L (-2.0-2.0)
[2020-07-03 06:06] LABS: ABG HCO3 38.5 mmol/L (22-26)
[2020-07-03 06:06] LABS: ALANINE AMINOTRANSFERASE 23 Units/L (12-78); ALBUMIN 1.7 g/dL (3.4-5.0); ALKALINE PHOSPHATASE 84 Units/L (46-116); ASPARTATE AMINO TRANSFERASE 20 Units/L (15-37); BLOOD UREA NITROGEN 19 mg/dL (7-18); CALCIUM 8.1 mg/dL (8.5-10.1); CARBON DIOXIDE 36.8 mmol/L (21-32); CHLORIDE 102 mmol/L (98-107); COR CA(FOR HYPOALB) 9.9 mg/dL (8.5-10.1); COR NA(FOR HYPERGLY) 142 mmol/L (136-145); SODIUM 141 mmol/L (136-145); eGFR NON BLACK RACES > 60 (>60)
[2020-07-03 06:10] LABS: BASOPHILS % (AUTO) 0.1 % (0.2-1.0); HEMATOCRIT 29.1 % (42.0-54.0); HEMOGLOBIN 9.6 g/dL (13.5-18.0); LYMPHOCYTES # (AUTO) 0.3 X10^3/uL (1.3-2.9); LYMPHOCYTES % (AUTO) 3.5 % (21.0-51.0); MEAN CORPUSCULAR HEMOGLOBIN 32.1 pg (27.0-34.0); MEAN CORPUSCULAR HGB CONC 32.9 g/dL (33.0-35.0); MEAN CORPUSCULAR VOLUME 97.7 fL (80.0-100.0); MEAN PLATELET VOLUME 8.7 fL (7.4-11.0); MONOCYTES # (AUTO) 0.2 x10^3/uL (0.3-0.8); MONOCYTES % (AUTO) 2.3 % (0.0-13.0); NEUTROPHILS # (AUTO) 7.1 x10^3/uL (2.2-4.8); NEUTROPHILS % (AUTO) 94.1 % (42.0-75.0); PLATELET COUNT 305 X10^3/uL (150.0-450.0); RED BLOOD COUNT 2.98 X10^6/uL (4.7-6.0); RED CELL DISTRIBUTION WIDTH 14.2 % (11.6-16.5); WHITE BLOOD COUNT 7.5 X10^3/uL (3.6-10.0)
[2020-07-03 06:51] LABS: BAND NEUTROPHILS % 3 % (0-10)
[2020-07-03 06:52] LABS: PLATELET MORPHOLOGY COMMENT NORMAL (NORMAL)
[2020-07-03] MEDS: BROVANA IN SCH ×2 (08:50→21:30)
[2020-07-03] MEDS: MUCOMYST 20% 200 MG/ML NEB SCH ×2 (08:50→21:38)
[2020-07-03] MEDS: XOPENEX 1.25 MG/3 ML NEBULE NEB SCH ×2 (08:50→21:38)
[2020-07-03] MEDS: PULMICORT NEB TX 0.5 MG NEB SCH ×2 (08:50→21:38)
[2020-07-03] MEDS: THIAMINE HCL INJ IVP SCH ×2 (09:00→20:58)
[2020-07-03] MEDS ORDERED: LANOXIN INJ IVP ONE (09:05)
[2020-07-03] MEDS ORDERED: LOPRESSOR INJ 5 MG AMP IVP ONE ×2 (09:06→10:15)
[2020-07-03] MEDS ORDERED: CARDIZEM INJ 50 MG VIAL IVP ONE (09:07)
[2020-07-03] MEDS: VITAMIN A PO SCH (09:19)
[2020-07-03] MEDS: DULCOLAX TAB EC 5 MG PO SCH ×2 (09:19→20:59)
[2020-07-03] MEDS: ROBITUSSIN (PLAIN) PO SCH ×4 (09:20→21:50)
[2020-07-03] MEDS: TRICOR TAB 160 MG PO SCH (09:22)
[2020-07-03] MEDS: VITAMIN D3 125 mcg (5,000 UNITS) PO SCH (09:23)
[2020-07-03] MEDS: PEPCID TAB 40 MG PO SCH ×2 (09:56→20:56)
[2020-07-03] MEDS: ELIQUIS PO SCH ×2 (09:56→20:57)
[2020-07-03] MEDS: PLAVIX PO SCH (09:57)
[2020-07-03] MEDS: LANOXIN INJ IVP SCH ×2 (10:16→14:29)
[2020-07-03] MEDS: NYSTATIN SUSP PO PRN (14:03)
[2020-07-03] MEDS ORDERED: NEXTERONE IV 150 MG PREMIX* 150 MG/100 ML BAG IV ONE (16:44)
[2020-07-03] MEDS ORDERED: NEXTERONE IV 360 MG PREMIX* 360 MG/200 ML BAG IV PRN ×2 (16:47→16:50)
[2020-07-03] MEDS: NORCO 10/325 TAB PO PRN (18:23)
[2020-07-03] MEDS ORDERED: NS 250 ML IV 250 ML IV ONE (19:49)
[2020-07-03] MEDS: CELEXA PO SCH (20:57)
[2020-07-03] MEDS: MELATONIN PO SCH (20:57)
[2020-07-03] MEDS: ROCEPHIN VIAL 1 GRAM 1 G in NS 100 ML IV + SPIKE MINIBAG* 100 ML IV SCH (20:58)
[2020-07-03] MEDS: LIORESAL PO SCH (20:58)
[2020-07-03] MEDS: ZITHROMAX INJ 500 MG VIAL 500 MG in NS 250 ML IV 250 ML IV SCH (21:50)
[2020-07-03] MEDS: DILAUDID INJ IVP PRN (22:30)
[2020-07-04] MEDS: ASCORBIC ACID INJ MULTI-DOSE VIAL 1,500 MG in NS 100 ML IV 100 ML IV SCH ×4 (02:09→20:40)
[2020-07-04] MEDS: SOLU-Medrol 40 MG VIAL IVP SCH ×4 (02:09→20:41)
[2020-07-04] MEDS: NORCO 10/325 TAB PO PRN ×2 (02:10→21:37)
[2020-07-04 05:47] LABS: ABG BASE EXCESS 13.5 mmol/L (-2.0-2.0)
[2020-07-04 05:48] LABS: ABG ALLEN TEST POS; ABG HCO3 38.9 mmol/L (22-26)
--- NOTE | 2020-07-04 06:01 | RAD ---
HISTORYFollow-up COVID-19STUDYChest AP [id number] June 2020FINDINGSPatient is rotated to the right. Patient is status post median sternotomy and CABG. Heart remains upper limits normal in size. Diffuse bilateral interstitial and ground-glass infiltrates are again identified and unchanged in degree or distribution from the prior examination. No pleural effusions are identified. Bony thorax is unremarkable.IMPRESSIONDiffuse bilateral interstitial and ground-glass infiltrates unchanged when compared with the prior examinationElectronically signed by: MANOJ BURKS (Jul 04, 2020 06:00:16)
[2020-07-04] MEDS: ATIVAN TAB 1 MG PO SCH ×3 (06:17→21:36)
[2020-07-04 06:31] LABS: BASOPHILS % (AUTO) 0.2 % (0.2-1.0); EOSINOPHILS % (AUTO) 0.4 % (0.9-2.9); HEMATOCRIT 28.7 % (42.0-54.0); HEMOGLOBIN 9.7 g/dL (13.5-18.0); LYMPHOCYTES # (AUTO) 0.3 X10^3/uL (1.3-2.9); LYMPHOCYTES % (AUTO) 4.1 % (21.0-51.0); MEAN CORPUSCULAR VOLUME 97.2 fL (80.0-100.0); MEAN PLATELET VOLUME 8.4 fL (7.4-11.0); MONOCYTES # (AUTO) 0.1 x10^3/uL (0.3-0.8); MONOCYTES % (AUTO) 1.6 % (0.0-13.0); NEUTROPHILS # (AUTO) 7.4 x10^3/uL (2.2-4.8); NEUTROPHILS % (AUTO) 93.7 % (42.0-75.0); PLATELET COUNT 312 X10^3/uL (150.0-450.0); RED BLOOD COUNT 2.95 X10^6/uL (4.7-6.0); RED CELL DISTRIBUTION WIDTH 14.6 % (11.6-16.5); WHITE BLOOD COUNT 7.9 X10^3/uL (3.6-10.0)
[2020-07-04 06:42] LABS: ALANINE AMINOTRANSFERASE 23 Units/L (12-78); ALBUMIN 1.7 g/dL (3.4-5.0); ALKALINE PHOSPHATASE 78 Units/L (46-116); ASPARTATE AMINO TRANSFERASE 25 Units/L (15-37); BLOOD UREA NITROGEN 19 mg/dL (7-18); CARBON DIOXIDE 36.5 mmol/L (21-32); CHLORIDE 101 mmol/L (98-107); COR CA(FOR HYPOALB) 9.8 mg/dL (8.5-10.1); COR NA(FOR HYPERGLY) 141 mmol/L (136-145); CREATININE 0.69 mg/dL (0.70-1.30); SODIUM 140 mmol/L (136-145); eGFR NON BLACK RACES > 60 (>60)
[2020-07-04 06:56] LABS: DIGOXIN 0.84 ng/mL (0.9-2); MAGNESIUM 2.1 mg/dL (1.7-2.9)
[2020-07-04 07:09] LABS: METAMYELOCYTES % 1; MYELOCYTES % 1
[2020-07-04 07:10] LABS: PLATELET MORPHOLOGY COMMENT NORMAL (NORMAL)
[2020-07-04] MEDS: XOPENEX 1.25 MG/3 ML NEBULE NEB SCH ×2 (08:35→20:35)
[2020-07-04] MEDS: MUCOMYST 20% 200 MG/ML NEB SCH ×2 (08:35→20:35)
[2020-07-04] MEDS: PULMICORT NEB TX 0.5 MG NEB SCH ×2 (08:35→20:35)
[2020-07-04] MEDS: BROVANA IN SCH ×2 (08:35→20:30)
[2020-07-04] MEDS: THIAMINE HCL INJ IVP SCH ×2 (10:24→21:36)
[2020-07-04] MEDS: ROBITUSSIN (PLAIN) PO SCH ×4 (10:25→21:35)
[2020-07-04] MEDS: COREG TAB 12.5 MG PO SCH ×2 (11:59→21:35)
[2020-07-04] MEDS: DULCOLAX TAB EC 5 MG PO SCH ×2 (11:59→21:34)
[2020-07-04] MEDS: ELIQUIS PO SCH ×2 (12:00→21:35)
[2020-07-04] MEDS: LIORESAL PO SCH ×2 (12:00→21:34)
[2020-07-04] MEDS: PEPCID TAB 40 MG PO SCH ×2 (12:00→21:35)
[2020-07-04] MEDS: TRICOR TAB 160 MG PO SCH (12:00)
[2020-07-04] MEDS: PLAVIX PO SCH (12:01)
[2020-07-04] MEDS: VITAMIN D3 125 mcg (5,000 UNITS) PO SCH (12:04)
[2020-07-04] MEDS: VITAMIN A PO SCH (12:04)
[2020-07-04] MEDS: CORDARONE TAB 200 MG PO SCH (18:15)
[2020-07-04] MEDS: NYSTATIN SUSP PO PRN (18:16)
[2020-07-04] MEDS: ROCEPHIN VIAL 1 GRAM 1 G in NS 100 ML IV + SPIKE MINIBAG* 100 ML IV SCH (20:40)
[2020-07-04] MEDS: MELATONIN PO SCH (21:34)
[2020-07-04] MEDS: COLACE CAP 100 MG PO PRN (21:35)
[2020-07-04] MEDS: CELEXA PO SCH (21:35)
[2020-07-04] MEDS: ZITHROMAX INJ 500 MG VIAL 500 MG in NS 250 ML IV 250 ML IV SCH (21:36)
[2020-07-05] MEDS: SOLU-Medrol 40 MG VIAL IVP SCH ×4 (02:21→21:23)
[2020-07-05] MEDS: ASCORBIC ACID INJ MULTI-DOSE VIAL 1,500 MG in NS 100 ML IV 100 ML IV SCH ×4 (02:21→21:21)
[2020-07-05 04:20] LABS: ABG ALLEN TEST POS; ABG BASE EXCESS 13.5 mmol/L (-2.0-2.0); ABG HCO3 38.3 mmol/L (22-26)
[2020-07-05] MEDS: COREG TAB 12.5 MG PO SCH ×2 (04:51→21:22)
[2020-07-05 06:07] LABS: BASOPHILS % (AUTO) 0.2 % (0.2-1.0); HEMATOCRIT 29.7 % (42.0-54.0); HEMOGLOBIN 9.9 g/dL (13.5-18.0); LYMPHOCYTES # (AUTO) 0.3 X10^3/uL (1.3-2.9); LYMPHOCYTES % (AUTO) 3.3 % (21.0-51.0); MEAN CORPUSCULAR HEMOGLOBIN 32.7 pg (27.0-34.0); MEAN CORPUSCULAR HGB CONC 33.4 g/dL (33.0-35.0); MEAN PLATELET VOLUME 8.5 fL (7.4-11.0); MONOCYTES # (AUTO) 0.1 x10^3/uL (0.3-0.8); MONOCYTES % (AUTO) 1.7 % (0.0-13.0); NEUTROPHILS # (AUTO) 7.1 x10^3/uL (2.2-4.8); NEUTROPHILS % (AUTO) 94.8 % (42.0-75.0); PLATELET COUNT 317 X10^3/uL (150.0-450.0); RED BLOOD COUNT 3.03 X10^6/uL (4.7-6.0); RED CELL DISTRIBUTION WIDTH 14.7 % (11.6-16.5); WHITE BLOOD COUNT 7.5 X10^3/uL (3.6-10.0)
[2020-07-05 06:19] LABS: ALANINE AMINOTRANSFERASE 24 Units/L (12-78); ALBUMIN 1.8 g/dL (3.4-5.0); ALKALINE PHOSPHATASE 73 Units/L (46-116); ASPARTATE AMINO TRANSFERASE 20 Units/L (15-37); BLOOD UREA NITROGEN 21 mg/dL (7-18); CALCIUM 8.1 mg/dL (8.5-10.1); CARBON DIOXIDE 33.8 mmol/L (21-32); CHLORIDE 102 mmol/L (98-107); COR CA(FOR HYPOALB) 9.9 mg/dL (8.5-10.1); COR NA(FOR HYPERGLY) 140 mmol/L (136-145); CREATININE 0.64 mg/dL (0.70-1.30); DIGOXIN 0.62 ng/mL (0.9-2); SODIUM 139 mmol/L (136-145); TOTAL PROTEIN 4.8 g/dL (6.4-8.2); eGFR NON BLACK RACES > 60 (>60)
[2020-07-05] MEDS: NS 1000 ML 1,000 ML IV SCH ×2 (06:24→23:51)
[2020-07-05] MEDS: ATIVAN TAB 1 MG PO SCH ×3 (06:24→21:24)
[2020-07-05 07:38] LABS: BAND NEUTROPHILS % 2 % (0-10); PLATELET MORPHOLOGY COMMENT NORMAL (NORMAL)
--- NOTE | 2020-07-05 08:07 | RAD ---
HISTORYPNEUMONIASTUDYCHEST, 1 [id number]/14/2021FINDINGSThe cardiomediastinal silhouette is stable. Similar post sternotomy changes. Similar bilateral airspace opacities. The bony thorax appears intact. ACDF hardware.IMPRESSIONNo significant change.Electronically signed by: MANOJ BURKS (Jul 05, 2020 08:05:59)
[2020-07-05] MEDS: ELIQUIS PO SCH ×2 (09:32→21:22)
[2020-07-05] MEDS: PEPCID TAB 40 MG PO SCH ×2 (09:33→21:23)
[2020-07-05] MEDS: PLAVIX PO SCH (09:33)
[2020-07-05] MEDS: VITAMIN D3 125 mcg (5,000 UNITS) PO SCH (09:35)
[2020-07-05] MEDS: TRICOR TAB 160 MG PO SCH (09:36)
[2020-07-05] MEDS: XOPENEX 1.25 MG/3 ML NEBULE NEB SCH ×2 (09:50→21:20)
[2020-07-05] MEDS: PULMICORT NEB TX 0.5 MG NEB SCH ×2 (09:50→21:20)
[2020-07-05] MEDS: MUCOMYST 20% 200 MG/ML NEB SCH ×2 (09:50→21:21)
[2020-07-05] MEDS: BROVANA IN SCH ×2 (09:50→21:21)
[2020-07-05] MEDS: DULCOLAX TAB EC 5 MG PO SCH ×2 (10:29→21:22)
[2020-07-05] MEDS: LIORESAL PO SCH ×2 (10:29→21:22)
[2020-07-05] MEDS: ROBITUSSIN (PLAIN) PO SCH ×4 (10:30→21:23)
[2020-07-05] MEDS: THIAMINE HCL INJ IVP SCH ×2 (10:30→21:23)
[2020-07-05] MEDS: NORCO 10/325 TAB PO PRN ×2 (10:31→21:25)
[2020-07-05] MEDS: VITAMIN A PO SCH (10:31)
[2020-07-05] MEDS: ZOFRAN INJ 4 MG VIAL IVP PRN (15:19)
[2020-07-05] MEDS: NYSTATIN SUSP PO SCH ×3 (15:43→21:22)
[2020-07-05] MEDS: CORDARONE TAB 200 MG PO SCH (19:15)
[2020-07-05] MEDS: CELEXA PO SCH (21:21)
[2020-07-05] MEDS: COLACE CAP 100 MG PO SCH (21:21)
[2020-07-05] MEDS: MELATONIN PO SCH (21:22)
[2020-07-05] MEDS: MILK OF MAGNESIA PO SCH (21:22)
[2020-07-05] MEDS: ROCEPHIN VIAL 1 GRAM 1 G in NS 100 ML IV + SPIKE MINIBAG* 100 ML IV SCH (21:23)
[2020-07-05] MEDS: ZITHROMAX INJ 500 MG VIAL 500 MG in NS 250 ML IV 250 ML IV SCH (21:25)
[2020-07-06] MEDS: DILAUDID INJ IVP PRN (00:10)
[2020-07-06] MEDS: ASCORBIC ACID INJ MULTI-DOSE VIAL 1,500 MG in NS 100 ML IV 100 ML IV SCH ×4 (02:08→20:06)
[2020-07-06] MEDS: SOLU-Medrol 40 MG VIAL IVP SCH ×4 (02:09→20:26)
[2020-07-06] MEDS: NORCO 10/325 TAB PO PRN ×3 (04:05→17:00)
[2020-07-06 05:33] LABS: ABG BASE EXCESS 13.1 mmol/L (-2.0-2.0)
[2020-07-06 05:34] LABS: BASOPHILS % (AUTO) 0.1 % (0.2-1.0); EOSINOPHILS % (AUTO) 0.1 % (0.9-2.9); HEMATOCRIT 29.3 % (42.0-54.0); HEMOGLOBIN 9.9 g/dL (13.5-18.0); LYMPHOCYTES # (AUTO) 0.2 X10^3/uL (1.3-2.9); LYMPHOCYTES % (AUTO) 2.8 % (21.0-51.0); MEAN CORPUSCULAR HEMOGLOBIN 33.1 pg (27.0-34.0); MEAN CORPUSCULAR HGB CONC 33.7 g/dL (33.0-35.0); MEAN PLATELET VOLUME 8.5 fL (7.4-11.0); MONOCYTES # (AUTO) 0.1 x10^3/uL (0.3-0.8); MONOCYTES % (AUTO) 1.4 % (0.0-13.0); NEUTROPHILS % (AUTO) 95.6 % (42.0-75.0); PLATELET COUNT 332 X10^3/uL (150.0-450.0); RED BLOOD COUNT 2.99 X10^6/uL (4.7-6.0); RED CELL DISTRIBUTION WIDTH 14.8 % (11.6-16.5); WHITE BLOOD COUNT 8.4 X10^3/uL (3.6-10.0)
[2020-07-06 05:34] LABS: ABG ALLEN TEST POS; ABG HCO3 37.6 mmol/L (22-26)
[2020-07-06 05:45] LABS: ALANINE AMINOTRANSFERASE 22 Units/L (12-78); ALBUMIN 1.7 g/dL (3.4-5.0); ALKALINE PHOSPHATASE 68 Units/L (46-116); ASPARTATE AMINO TRANSFERASE 20 Units/L (15-37); BLOOD UREA NITROGEN 20 mg/dL (7-18); CALCIUM 8.1 mg/dL (8.5-10.1); CARBON DIOXIDE 34.3 mmol/L (21-32); CHLORIDE 102 mmol/L (98-107); COR CA(FOR HYPOALB) 9.9 mg/dL (8.5-10.1); COR NA(FOR HYPERGLY) 139 mmol/L (136-145); CREATININE 0.67 mg/dL (0.70-1.30); SODIUM 137 mmol/L (136-145); TOTAL PROTEIN 4.5 g/dL (6.4-8.2); eGFR NON BLACK RACES > 60 (>60)
[2020-07-06 06:39] LABS: PLATELET MORPHOLOGY COMMENT NORMAL (NORMAL)
[2020-07-06] MEDS: CORDARONE TAB 200 MG PO SCH ×2 (08:47→16:57)
[2020-07-06] MEDS: DULCOLAX TAB EC 5 MG PO SCH ×2 (08:48→20:27)
[2020-07-06] MEDS: NYSTATIN SUSP PO SCH ×4 (08:48→20:25)
[2020-07-06] MEDS: VITAMIN D3 125 mcg (5,000 UNITS) PO SCH (08:49)
[2020-07-06] MEDS: ELIQUIS PO SCH ×2 (08:49→20:23)
[2020-07-06] MEDS: COREG TAB 12.5 MG PO SCH ×3 (08:51→20:23)
[2020-07-06] MEDS: TRICOR TAB 160 MG PO SCH (08:52)
[2020-07-06] MEDS: PEPCID TAB 40 MG PO SCH ×2 (09:00→20:25)
[2020-07-06] MEDS: COLACE CAP 100 MG PO SCH ×2 (09:01→20:23)
[2020-07-06] MEDS: LIORESAL PO SCH ×2 (09:02→20:23)
[2020-07-06] MEDS: PLAVIX PO SCH (09:02)
[2020-07-06] MEDS: MILK OF MAGNESIA PO SCH ×2 (09:02→20:25)
[2020-07-06] MEDS: ROBITUSSIN (PLAIN) PO SCH ×4 (09:03→20:25)
[2020-07-06] MEDS: THIAMINE HCL INJ IVP SCH (09:04)
[2020-07-06] MEDS: VITAMIN A PO SCH (09:04)
[2020-07-06] MEDS: BROVANA IN SCH ×2 (09:25→20:36)
[2020-07-06] MEDS: XOPENEX 1.25 MG/3 ML NEBULE NEB SCH ×2 (09:33→20:43)
[2020-07-06] MEDS: MUCOMYST 20% 200 MG/ML NEB SCH ×2 (09:33→20:43)
[2020-07-06] MEDS: PULMICORT NEB TX 0.5 MG NEB SCH ×2 (09:33→20:43)
[2020-07-06] MEDS: ATIVAN TAB 1 MG PO SCH ×2 (10:17→14:00)
--- NOTE | 2020-07-06 10:21 | RAD ---
HISTORYCOVID, SOB, COMPARISONSTUDYCHEST, 1 VIEWCOMPARISONPortable chest July 05, 2020FINDINGSThe trachea is midline. The cardiac silhouette is unremarkable. There are sternotomy wires from prior CABG surgery. The bilateral interstitial infiltrates predominantly in the mid and lower lung rucker are stable compared to yesterday's exam. The bony thorax is unremarkable. Patient has had a lower C-spine anterior cervical fusion.IMPRESSIONNo significant interval change in the bilateral airspace disease consistent with COVID-19 pneumonia.Electronically signed by: KAMILLA ARANDA (Jul 06, 2020 10:19:39)
[2020-07-06] MEDS: ZOFRAN INJ 4 MG VIAL IVP PRN (10:30)
[2020-07-06] MEDS: TYLENOL 325 MG TAB PO PRN (14:30)
[2020-07-06] MEDS ORDERED: DULCOLAX SUPPOSITORY 10 MG RECTAL ONE (17:01)
[2020-07-06] MEDS: MAGIC MOUTHWASH MT PRN (17:48)
[2020-07-06] MEDS: CELEXA PO SCH (20:22)
[2020-07-06] MEDS: MELATONIN PO SCH (20:24)
[2020-07-06] MEDS: ROCEPHIN VIAL 1 GRAM 1 G in NS 100 ML IV + SPIKE MINIBAG* 100 ML IV SCH (21:00)
[2020-07-06] MEDS: ZOVIRAX VIAL 500 MG 500 MG in NS 100 ML IV + SPIKE MINIBAG* 100 ML IV SCH (21:41)
[2020-07-06] MEDS: ZITHROMAX INJ 500 MG VIAL 500 MG in NS 250 ML IV 250 ML IV SCH (23:35)
[2020-07-07] MEDS: ATIVAN TAB 1 MG PO SCH ×4 (00:45→21:17)
[2020-07-07] MEDS: NORCO 10/325 TAB PO PRN ×3 (00:45→16:30)
[2020-07-07] MEDS: ASCORBIC ACID INJ MULTI-DOSE VIAL 1,500 MG in NS 100 ML IV 100 ML IV SCH ×4 (03:15→20:15)
[2020-07-07] MEDS: SOLU-Medrol 40 MG VIAL IVP SCH ×4 (03:15→20:15)
[2020-07-07] MEDS: NS 1000 ML 1,000 ML IV SCH (05:20)
[2020-07-07] MEDS: ZOVIRAX VIAL 500 MG 500 MG in NS 100 ML IV + SPIKE MINIBAG* 100 ML IV SCH ×3 (05:21→22:15)
[2020-07-07 05:31] LABS: ABG BASE EXCESS 13.3 mmol/L (-2.0-2.0)
[2020-07-07 05:34] LABS: ABG ALLEN TEST POS; ABG HCO3 37.6 mmol/L (22-26)
[2020-07-07 05:41] LABS: BASOPHILS % (AUTO) 0.1 % (0.2-1.0); HEMATOCRIT 28.9 % (42.0-54.0); HEMOGLOBIN 9.6 g/dL (13.5-18.0); LYMPHOCYTES # (AUTO) 0.3 X10^3/uL (1.3-2.9); LYMPHOCYTES % (AUTO) 2.9 % (21.0-51.0); MEAN CORPUSCULAR HEMOGLOBIN 32.8 pg (27.0-34.0); MEAN CORPUSCULAR HGB CONC 33.4 g/dL (33.0-35.0); MEAN CORPUSCULAR VOLUME 98.3 fL (80.0-100.0); MEAN PLATELET VOLUME 8.2 fL (7.4-11.0); MONOCYTES # (AUTO) 0.2 x10^3/uL (0.3-0.8); MONOCYTES % (AUTO) 2.4 % (0.0-13.0); NEUTROPHILS # (AUTO) 8.5 x10^3/uL (2.2-4.8); NEUTROPHILS % (AUTO) 94.6 % (42.0-75.0); PLATELET COUNT 324 X10^3/uL (150.0-450.0); RED BLOOD COUNT 2.93 X10^6/uL (4.7-6.0); RED CELL DISTRIBUTION WIDTH 14.9 % (11.6-16.5)
[2020-07-07 06:07] LABS: ALANINE AMINOTRANSFERASE 17 Units/L (12-78); ALBUMIN 1.6 g/dL (3.4-5.0); ALKALINE PHOSPHATASE 61 Units/L (46-116); ASPARTATE AMINO TRANSFERASE 20 Units/L (15-37); BLOOD UREA NITROGEN 19 mg/dL (7-18); CARBON DIOXIDE 35.2 mmol/L (21-32); CHLORIDE 103 mmol/L (98-107); COR CA(FOR HYPOALB) 9.9 mg/dL (8.5-10.1); COR NA(FOR HYPERGLY) 139 mmol/L (136-145); CREATININE 0.57 mg/dL (0.70-1.30); SODIUM 138 mmol/L (136-145); TOTAL PROTEIN 4.2 g/dL (6.4-8.2); eGFR NON BLACK RACES > 60 (>60)
[2020-07-07 06:10] LABS: BAND NEUTROPHILS % 6 % (0-10); PLATELET MORPHOLOGY COMMENT NORMAL (NORMAL)
[2020-07-07 06:11] LABS: HYPOCHROMASIA SLIGHT
[2020-07-07] MEDS: COREG TAB 12.5 MG PO SCH ×2 (08:47→20:40)
[2020-07-07] MEDS: CORDARONE TAB 200 MG PO SCH ×2 (08:49→16:30)
[2020-07-07] MEDS: MILK OF MAGNESIA PO SCH (08:50)
[2020-07-07] MEDS: DULCOLAX TAB EC 5 MG PO SCH (08:50)
[2020-07-07] MEDS ORDERED: ROBITUSSIN (PLAIN) PO PRN (08:53)
[2020-07-07] MEDS ORDERED: DULCOLAX TAB EC 5 MG PO PRN (08:54)
[2020-07-07] MEDS ORDERED: MILK OF MAGNESIA PO PRN (08:54)
[2020-07-07] MEDS: BROVANA IN SCH ×2 (09:13→21:30)
[2020-07-07] MEDS: MUCOMYST 20% 200 MG/ML NEB SCH ×2 (09:19→21:37)
[2020-07-07] MEDS: XOPENEX 1.25 MG/3 ML NEBULE NEB SCH ×2 (09:19→21:37)
[2020-07-07] MEDS: PULMICORT NEB TX 0.5 MG NEB SCH ×2 (09:19→21:37)
[2020-07-07] MEDS: LIORESAL PO SCH ×2 (09:30→20:15)
[2020-07-07] MEDS: PLAVIX PO SCH (09:30)
[2020-07-07] MEDS: VITAMIN D3 125 mcg (5,000 UNITS) PO SCH (09:30)
[2020-07-07] MEDS: PEPCID TAB 40 MG PO SCH ×2 (09:30→20:15)
[2020-07-07] MEDS: COLACE CAP 100 MG PO SCH ×2 (09:30→20:15)
[2020-07-07] MEDS: ELIQUIS PO SCH ×2 (09:30→20:15)
[2020-07-07] MEDS: MAGIC MOUTHWASH MT PRN (09:30)
[2020-07-07] MEDS: TRICOR TAB 160 MG PO SCH (09:30)
[2020-07-07] MEDS: NYSTATIN SUSP PO PRN (16:30)
[2020-07-07] MEDS: CELEXA PO SCH (20:15)
[2020-07-07] MEDS: MELATONIN PO SCH (20:15)
[2020-07-07] MEDS: ROCEPHIN VIAL 1 GRAM 1 G in NS 100 ML IV + SPIKE MINIBAG* 100 ML IV SCH (21:17)
[2020-07-07] MEDS: ZITHROMAX INJ 500 MG VIAL 500 MG in NS 250 ML IV 250 ML IV SCH (23:00)
[2020-07-08] MEDS: NS 1000 ML 1,000 ML IV SCH (00:13)
[2020-07-08] MEDS: NORCO 10/325 TAB PO PRN ×2 (00:13→05:39)
[2020-07-08] MEDS ORDERED: MAALOX or MYLANTA PO PRN (01:53)
[2020-07-08] MEDS: ASCORBIC ACID INJ MULTI-DOSE VIAL 1,500 MG in NS 100 ML IV 100 ML IV SCH ×4 (02:51→21:00)
[2020-07-08] MEDS: MAALOX or MYLANTA PO PRN (02:52)
[2020-07-08] MEDS: SOLU-Medrol 40 MG VIAL IVP SCH ×4 (02:52→21:00)
[2020-07-08] MEDS: DULCOLAX SUPPOSITORY 10 MG RECTAL PRN (02:52)
[2020-07-08 05:13] LABS: ABG ALLEN TEST POS; ABG HCO3 35.1 mmol/L (22-26)
[2020-07-08 05:17] LABS: BASOPHILS % (AUTO) 0.1 % (0.2-1.0); EOSINOPHILS % (AUTO) 0.1 % (0.9-2.9); HEMATOCRIT 31.1 % (42.0-54.0); HEMOGLOBIN 10.2 g/dL (13.5-18.0); LYMPHOCYTES # (AUTO) 0.3 X10^3/uL (1.3-2.9); LYMPHOCYTES % (AUTO) 2.5 % (21.0-51.0); MEAN CORPUSCULAR HEMOGLOBIN 32.2 pg (27.0-34.0); MEAN CORPUSCULAR HGB CONC 32.7 g/dL (33.0-35.0); MEAN CORPUSCULAR VOLUME 98.3 fL (80.0-100.0); MEAN PLATELET VOLUME 8.3 fL (7.4-11.0); MONOCYTES # (AUTO) 0 x10^3/uL (0.3-0.8); MONOCYTES % (AUTO) 0.3 % (0.0-13.0); NEUTROPHILS # (AUTO) 11.3 x10^3/uL (2.2-4.8); PLATELET COUNT 336 X10^3/uL (150.0-450.0); RED BLOOD COUNT 3.16 X10^6/uL (4.7-6.0); RED CELL DISTRIBUTION WIDTH 15.3 % (11.6-16.5); WHITE BLOOD COUNT 11.6 X10^3/uL (3.6-10.0)
[2020-07-08 05:33] LABS: ALANINE AMINOTRANSFERASE 25 Units/L (12-78); ALBUMIN 1.8 g/dL (3.4-5.0); ALKALINE PHOSPHATASE 64 Units/L (46-116); ASPARTATE AMINO TRANSFERASE 18 Units/L (15-37); BLOOD UREA NITROGEN 20 mg/dL (7-18); CARBON DIOXIDE 31.7 mmol/L (21-32); CHLORIDE 102 mmol/L (98-107); COR CA(FOR HYPOALB) 9.8 mg/dL (8.5-10.1); COR NA(FOR HYPERGLY) 139 mmol/L (136-145); CREATININE 0.68 mg/dL (0.70-1.30); SODIUM 137 mmol/L (136-145); TOTAL PROTEIN 4.4 g/dL (6.4-8.2); eGFR NON BLACK RACES > 60 (>60)
--- NOTE | 2020-07-08 05:33 | RAD ---
STUDY: SINGLE VIEW OF THE ABDOMENCOMPARISON: NoneHISTORY: ABDOMINAL PAINFINDINGS:Bowel gas pattern is nonobstructive.There is no gross evidence of free air in the abdomen.There are no abnormal masses or calcification seen.The visualized bones demonstrate degenerative changes.Large amount enteric gas is seen GI.There is a central line overlying right pelvis with tip at the level the L4 vertebral body.There is a tubular shaped structure seen overlying the upper abdomen with midline sternotomy wiresIMPRESSION:1. THE BOWEL GAS PATTERN IS NONOBSTRUCTIVE.Electronically signed by: Miguel Hough (Jul 08, 2020 05:31:42)
[2020-07-08] MEDS: ZOVIRAX VIAL 500 MG 500 MG in NS 100 ML IV + SPIKE MINIBAG* 100 ML IV SCH ×3 (05:38→23:30)
[2020-07-08] MEDS: ATIVAN TAB 1 MG PO SCH ×3 (05:38→21:36)
[2020-07-08 06:00] LABS: BAND NEUTROPHILS % 5 % (0-10)
[2020-07-08 06:01] LABS: PLATELET MORPHOLOGY COMMENT NORMAL (NORMAL)
--- NOTE | 2020-07-08 06:22 | RAD ---
HISTORYFollow-up COVID-19STUDYChest AP [id number]/16/2021FINDINGSPatient is status post median sternotomy and CABG. The heart is w ithin normal limits in size. Bilateral mid and lower lobe interstitial and ground-glass infiltrates a re unchanged. No pleural effusions are identified. Bony thorax is unremarkable.IMPRESSIONNo change di ffuse bilateral but predominantly lower lobe interstitial and some ground-glass infiltrates when comp ared with the prior examinationElectronically signed by: MANOJ BURKS (Jul 08, 2020 06:20:54)
[2020-07-08] MEDS: CORDARONE TAB 200 MG PO SCH ×2 (06:35→17:23)
[2020-07-08] MEDS: MUCOMYST 20% 200 MG/ML NEB SCH ×2 (08:20→20:20)
[2020-07-08] MEDS: BROVANA IN SCH ×2 (08:20→20:15)
[2020-07-08] MEDS: XOPENEX 1.25 MG/3 ML NEBULE NEB SCH ×2 (08:20→20:20)
[2020-07-08] MEDS: PULMICORT NEB TX 0.5 MG NEB SCH ×2 (08:20→20:20)
[2020-07-08] MEDS: LIORESAL PO SCH ×2 (09:48→21:00)
[2020-07-08] MEDS: ELIQUIS PO SCH ×2 (09:48→21:00)
[2020-07-08] MEDS: COLACE CAP 100 MG PO SCH ×2 (09:48→21:00)
[2020-07-08] MEDS: COREG TAB 12.5 MG PO SCH ×2 (09:49→21:00)
[2020-07-08] MEDS: PEPCID TAB 40 MG PO SCH ×2 (09:49→21:00)
[2020-07-08] MEDS: PLAVIX PO SCH (09:50)
[2020-07-08] MEDS: VITAMIN D3 125 mcg (5,000 UNITS) PO SCH (09:50)
[2020-07-08] MEDS: TRICOR TAB 160 MG PO SCH (09:50)
[2020-07-08] MEDS ORDERED: LASIX IVP ONE (11:26)
[2020-07-08] MEDS: ZOFRAN INJ 4 MG VIAL IVP PRN (12:48)
[2020-07-08] MEDS: BUTT CREAM (COMPOUND) TOP PRN (14:28)
[2020-07-08] MEDS: MAGIC MOUTHWASH MT PRN (18:16)
[2020-07-08] MEDS: MYLICON TAB 80 MG CHEW PO PRN (21:00)
[2020-07-08] MEDS: MELATONIN PO SCH (21:00)
[2020-07-08] MEDS: CELEXA PO SCH (21:00)
[2020-07-08] MEDS: ROCEPHIN VIAL 1 GRAM 1 G in NS 100 ML IV + SPIKE MINIBAG* 100 ML IV SCH (21:35)
[2020-07-08] MEDS: ZITHROMAX INJ 500 MG VIAL 500 MG in NS 250 ML IV 250 ML IV SCH (23:00)
[2020-07-09] MEDS: NS 1000 ML 1,000 ML IV SCH ×2 (01:15→18:16)
[2020-07-09] MEDS: NORCO 10/325 TAB PO PRN ×3 (02:13→20:30)
[2020-07-09] MEDS: ASCORBIC ACID INJ MULTI-DOSE VIAL 1,500 MG in NS 100 ML IV 100 ML IV SCH ×4 (03:35→20:30)
[2020-07-09] MEDS: SOLU-Medrol 40 MG VIAL IVP SCH ×4 (03:36→21:05)
[2020-07-09 05:00] LABS: ABG BASE EXCESS 12.1 mmol/L (-2.0-2.0)
[2020-07-09 05:01] LABS: ABG HCO3 35.9 mmol/L (22-26)
[2020-07-09 06:07] LABS: BASOPHILS % (AUTO) 0.2 % (0.2-1.0); HEMATOCRIT 30.8 % (42.0-54.0); HEMOGLOBIN 10.2 g/dL (13.5-18.0); LYMPHOCYTES # (AUTO) 0.3 X10^3/uL (1.3-2.9); LYMPHOCYTES % (AUTO) 2.3 % (21.0-51.0); MEAN CORPUSCULAR HEMOGLOBIN 32.6 pg (27.0-34.0); MEAN CORPUSCULAR HGB CONC 33.2 g/dL (33.0-35.0); MEAN PLATELET VOLUME 8.1 fL (7.4-11.0); MONOCYTES # (AUTO) 0.3 x10^3/uL (0.3-0.8); MONOCYTES % (AUTO) 2.6 % (0.0-13.0); NEUTROPHILS # (AUTO) 12.1 x10^3/uL (2.2-4.8); NEUTROPHILS % (AUTO) 94.9 % (42.0-75.0); PLATELET COUNT 285 X10^3/uL (150.0-450.0); RED BLOOD COUNT 3.14 X10^6/uL (4.7-6.0); RED CELL DISTRIBUTION WIDTH 15.9 % (11.6-16.5); WHITE BLOOD COUNT 12.7 X10^3/uL (3.6-10.0)
[2020-07-09 06:18] LABS: ALANINE AMINOTRANSFERASE 19 Units/L (12-78); ALBUMIN 1.8 g/dL (3.4-5.0); ALKALINE PHOSPHATASE 57 Units/L (46-116); ASPARTATE AMINO TRANSFERASE 19 Units/L (15-37); BLOOD UREA NITROGEN 17 mg/dL (7-18); CALCIUM 7.9 mg/dL (8.5-10.1); CARBON DIOXIDE 33.5 mmol/L (21-32); CHLORIDE 102 mmol/L (98-107); COR CA(FOR HYPOALB) 9.7 mg/dL (8.5-10.1); CREATININE 0.58 mg/dL (0.70-1.30); MAGNESIUM 2.1 mg/dL (1.7-2.9); SODIUM 140 mmol/L (136-145); TOTAL PROTEIN 4.4 g/dL (6.4-8.2); eGFR NON BLACK RACES > 60 (>60)
--- NOTE | 2020-07-09 06:40 | RAD ---
HISTORYFollow-up COVID-19STUDYChest AP [id number]/18/2021FINDINGSPatient is rotated to the right. Patient is status post median st ernotomy and CABG. Hypo inflation accentuates the heart size. It is likely upper limits normal. Bilat eral interstitial and ground-glass infiltrates are again identified unchanged in degree or distributi on from the prior examination. No pleural effusions are identified. Bony thorax is unremarkable.IMPRE SSIONNo change diffuse bilateral interstitial and ground-glass infiltrates when compared with the lacey or examinationElectronically signed by: MANOJ BURKS (Jul 09, 2020 06:38:27)
[2020-07-09] MEDS: ATIVAN TAB 1 MG PO SCH ×3 (06:49→21:05)
[2020-07-09] MEDS: CORDARONE TAB 200 MG PO SCH ×2 (06:50→17:14)
[2020-07-09] MEDS: ZOVIRAX VIAL 500 MG 500 MG in NS 100 ML IV + SPIKE MINIBAG* 100 ML IV SCH ×3 (06:50→22:00)
[2020-07-09 06:54] LABS: PLATELET MORPHOLOGY COMMENT NORMAL (NORMAL)
[2020-07-09] MEDS: COLACE CAP 100 MG PO SCH ×2 (08:49→20:30)
[2020-07-09] MEDS: COREG TAB 12.5 MG PO SCH (08:49)
[2020-07-09] MEDS: PEPCID TAB 40 MG PO SCH ×2 (08:50→20:30)
[2020-07-09] MEDS: PLAVIX PO SCH (08:50)
[2020-07-09] MEDS: ELIQUIS PO SCH ×2 (08:50→20:30)
[2020-07-09] MEDS: LIORESAL PO SCH ×2 (08:50→20:30)
[2020-07-09] MEDS: VITAMIN D3 125 mcg (5,000 UNITS) PO SCH (08:51)
[2020-07-09] MEDS: TRICOR TAB 160 MG PO SCH (08:51)
[2020-07-09] MEDS: MUCOMYST 20% 200 MG/ML NEB SCH ×2 (08:55→20:30)
[2020-07-09] MEDS: XOPENEX 1.25 MG/3 ML NEBULE NEB SCH ×2 (08:57→20:30)
[2020-07-09] MEDS: BROVANA IN SCH ×2 (08:57→20:25)
[2020-07-09] MEDS: PULMICORT NEB TX 0.5 MG NEB SCH ×2 (08:57→20:30)
[2020-07-09] MEDS ORDERED: LASIX IVP ONE (10:11)
[2020-07-09] MEDS: ZOFRAN INJ 4 MG VIAL IVP PRN ×2 (11:30→20:27)
[2020-07-09] MEDS ORDERED: SOLU-Medrol 40 MG VIAL ONE (15:25)
[2020-07-09] MEDS: MELATONIN PO SCH (20:30)
[2020-07-09] MEDS: CELEXA PO SCH (20:30)
[2020-07-09] MEDS: ROCEPHIN VIAL 1 GRAM 1 G in NS 100 ML IV + SPIKE MINIBAG* 100 ML IV SCH (20:50)
[2020-07-09] MEDS: COREG TAB 3.125 MG PO SCH (21:58)
[2020-07-09] MEDS: ZITHROMAX INJ 500 MG VIAL 500 MG in NS 250 ML IV 250 ML IV SCH ×2 (22:00→22:32)
[2020-07-10] MEDS: NS 1000 ML 1,000 ML IV SCH ×3 (00:30→23:08)
[2020-07-10] MEDS: ASCORBIC ACID INJ MULTI-DOSE VIAL 1,500 MG in NS 100 ML IV 100 ML IV SCH ×4 (02:21→20:05)
[2020-07-10 04:56] LABS: BASOPHILS % (AUTO) 0 % (0.2-1.0); HEMATOCRIT 31.1 % (42.0-54.0); HEMOGLOBIN 10.3 g/dL (13.5-18.0); LYMPHOCYTES # (AUTO) 0.3 X10^3/uL (1.3-2.9); LYMPHOCYTES % (AUTO) 2.6 % (21.0-51.0); MEAN CORPUSCULAR HEMOGLOBIN 32.6 pg (27.0-34.0); MEAN CORPUSCULAR VOLUME 98.9 fL (80.0-100.0); MEAN PLATELET VOLUME 8.2 fL (7.4-11.0); MONOCYTES # (AUTO) 0.3 x10^3/uL (0.3-0.8); MONOCYTES % (AUTO) 2.8 % (0.0-13.0); NEUTROPHILS # (AUTO) 10.9 x10^3/uL (2.2-4.8); NEUTROPHILS % (AUTO) 94.6 % (42.0-75.0); PLATELET COUNT 281 X10^3/uL (150.0-450.0); RED BLOOD COUNT 3.14 X10^6/uL (4.7-6.0); RED CELL DISTRIBUTION WIDTH 16.4 % (11.6-16.5); WHITE BLOOD COUNT 11.5 X10^3/uL (3.6-10.0)
[2020-07-10 04:56] LABS: ABG BASE EXCESS 11.7 mmol/L (-2.0-2.0)
[2020-07-10 04:57] LABS: ABG ALLEN TEST POS; ABG HCO3 34.9 mmol/L (22-26)
[2020-07-10] MEDS: NORCO 10/325 TAB PO PRN ×2 (05:05→20:05)
[2020-07-10] MEDS: ATIVAN TAB 1 MG PO SCH ×3 (05:05→21:00)
[2020-07-10] MEDS: SOLU-Medrol 40 MG VIAL IVP SCH ×3 (05:05→21:06)
[2020-07-10 05:12] LABS: ALANINE AMINOTRANSFERASE 20 Units/L (12-78); ALBUMIN 1.8 g/dL (3.4-5.0); ALKALINE PHOSPHATASE 53 Units/L (46-116); ASPARTATE AMINO TRANSFERASE 24 Units/L (15-37); BLOOD UREA NITROGEN 21 mg/dL (7-18); CALCIUM 7.9 mg/dL (8.5-10.1); CARBON DIOXIDE 32.3 mmol/L (21-32); CHLORIDE 103 mmol/L (98-107); COR CA(FOR HYPOALB) 9.7 mg/dL (8.5-10.1); COR NA(FOR HYPERGLY) 139 mmol/L (136-145); CREATININE 0.61 mg/dL (0.70-1.30); SODIUM 138 mmol/L (136-145); TOTAL PROTEIN 4.3 g/dL (6.4-8.2); eGFR NON BLACK RACES > 60 (>60)
[2020-07-10 05:30] LABS: PLATELET MORPHOLOGY COMMENT NORMAL (NORMAL)
[2020-07-10] MEDS: ZOVIRAX VIAL 500 MG 500 MG in NS 100 ML IV + SPIKE MINIBAG* 100 ML IV SCH ×3 (06:10→22:03)
[2020-07-10] MEDS: CORDARONE TAB 200 MG PO SCH ×2 (06:37→17:53)
[2020-07-10] MEDS: COREG TAB 3.125 MG PO SCH ×2 (08:48→20:05)
[2020-07-10] MEDS: COLACE CAP 100 MG PO SCH ×2 (08:48→20:05)
[2020-07-10] MEDS: LIORESAL PO SCH ×2 (08:49→20:05)
[2020-07-10] MEDS: TRICOR TAB 160 MG PO SCH (08:49)
[2020-07-10] MEDS: PEPCID TAB 40 MG PO SCH ×2 (08:49→20:05)
[2020-07-10] MEDS: ELIQUIS PO SCH ×2 (08:49→20:05)
[2020-07-10] MEDS: VITAMIN D3 125 mcg (5,000 UNITS) PO SCH (08:50)
[2020-07-10] MEDS: PLAVIX PO SCH (08:50)
[2020-07-10] MEDS: BROVANA IN SCH ×2 (09:28→20:25)
[2020-07-10] MEDS: XOPENEX 1.25 MG/3 ML NEBULE NEB SCH ×2 (09:34→20:15)
[2020-07-10] MEDS: PULMICORT NEB TX 0.5 MG NEB SCH ×2 (09:34→20:15)
[2020-07-10] MEDS: MUCOMYST 20% 200 MG/ML NEB SCH ×2 (09:34→20:15)
[2020-07-10] MEDS: MYLICON TAB 80 MG CHEW PO PRN ×2 (10:17→17:54)
--- NOTE | 2020-07-10 11:15 | PCM.PROG ---
Progress Note Progress Note for Day of Date of Exam: 07/10/20 Subjective Subjective: Pt is a 69-year-old white male w/ hx of pulmonary embolism, atrial fibrillation, that is admitted and being treated for COVID-19 pneumonia with hypoxia. This morning patient reports some improvement in respiratory status. No acute events overnight. His oxygen requirement has been weaned down to 4L nasal cannula. Labs/imaging: Wbc 11.5, Hgb 10.3, Plt 281, Na 138, K 4.6, Cr 0.61, Glucose 143, ABG: PH 7.56, PC02 39, P02 50, HC03 34, 02 SAT 90%, FI02 36%. His treatment course includes supplemental oxygen, pulmonary toileting, aggressive RT with weaning of oxygen concentration requirements, Solumedrol 80mg Q8H, and home medications. He will need PT in the home following discharge. re questing inpatient rehabilitation, will need to check with case management on Sunday. Otherwise, continue current treatment plan. Continue to monitor and follow up labs/imaging in the morning. Past Medical Family Social History Past Med/Fam/Surg Hx: No changes since H&P Allergies: Allergies No Known Drug Allergies Allergy (Verified 06/26/20 21:29) Review of Systems ROS: No change since H&P Vital Signs and I&O's Vital Signs: Temperature 98.2 F Pulse Rate 58 Respiratory Rate 26 Blood Pressure 95/54 O2 Sat by Pulse Oximetry 89 Intake and Output: Intake & Output 07/07/20 07/08/20 07/09/20 07/10/20 23:59 23:59 23:59 23:59 Intake Total 2232 / 2232 2942 / 2942 2847 / 2847 1254 / 1254 Output Total 750 / 750 2925 / 2925 2049 350 / 350 Balance 1482 / 1482 797 / 797 904 / 904 Physical Exam Oriented: Normal Eyes: Normal Ear: Normal Nose: Normal Throat: Normal Respiratory: Diminished and Wheezes Cardiovascular: Normal; negative Edema Auscultation: Bowel Sounds: Normal Tenderness: Normal Skin: Decreased Turgur, Wound (DEEP ABRASION WITH THICK SCABBING TO LEFT CARTER) and Bruising Musculoskeletal: Leg and Instability Mood Description: Calm Speech Pattern: Clear and Appropriate Laboratory and Diagnostics Result Diagrams: 07/10/20 04:25 07/10/20 04:25 Labs: 06/26/20 22:00 Blood Blood Culture - Final 06/26/20 21:50 Blood Blood Culture - Final 06/27/20 06:09 Sputum - Expectorated Sputum Sputum Culture - Final 06/27/20 06:09 Sputum - Expectorated Sputum - Final 06/26/20 21:43 Urine,Catheterized Urine Culture - Final Enterococcus Faecalis Laboratory WBC 11.5 X10^3/uL (3.6-10.0) H 07/10/20 04:25 RBC 3.14 X10^6/uL (4.7-6.0) L 07/10/20 04:25 Hgb 10.3 g/dL (13.5-18.0) L 07/10/20 04:25 Hct 31.1 % (42.0-54.0) L 07/10/20 04:25 MCV 98.9 fL (80.0-100.0) 07/10/20 04:25 MCH 32.6 pg (27.0-34.0) 07/10/20 04:25 MCHC 33.0 g/dL (33.0-35.0) 07/10/20 04:25 RDW 16.4 % (11.6-16.5) 07/10/20 04:25 Plt Count 281 X10^3/uL (150.0-450.0) 07/10/20 04:25 Plt Count Comment Adequate (ADEQUATE) 07/10/20 04:25 MPV 8.2 fL (7.4-11.0) 07/10/20 04:25 Neut % (Auto) 94.6 % (42.0-75.0) H 07/10/20 04:25 Lymph % (Auto) 2.6 % (21.0-51.0) L 07/10/20 04:25 [place] % (Auto) 2.8 % (0.0-13.0) 07/10/20 04:25 Eos % (Auto) 0.0 % (0.9-2.9) L 07/10/20 04:25 Baso % (Auto) 0 % (0.2-1.0) L 07/10/20 04:25 Neut # (Auto) 10.9 x10^3/uL (2.2-4.8) H 07/10/20 04:25 Lymph # (Auto) 0.3 X10^3/uL (1.3-2.9) L 07/10/20 04:25 [place] # (Auto) 0.3 x10^3/uL (0.3-0.8) 07/10/20 04:25 Eos # (Auto) 0.0 x10^3/uL (0.0-0.2) 07/10/20 04:25 Baso # (Auto) 0.0 X10^3/uL (0.0-0.1) 07/10/20 04:25 Absolute Nucleated RBC 0.0 /100WBC 07/10/20 04:25 Total Counted 100 07/10/20 04:25 Neutrophils % (Manual) 93 % (39-76) H 07/10/20 04:25 Band Neutrophils % 5 % (0-10) 07/08/20 04:35 Lymphocytes % (Manual) 3 % (13-43) L 07/10/20 04:25 Monocytes % (Manual) 4 % (4-9) 07/10/20 04:25 Metamyelocytes % 1 07/04/20 05:58 Myelocytes % 1 07/04/20 05:58 Nucleated RBCs 2 07/02/20 04:45 Plt Morphology Comment Normal (NORMAL) 07/10/20 04:25 RBC Morphology Normal (NORMAL) 07/10/20 04:25 Hypochromasia Slight A 07/07/20 05:07 Rouleaux Present 07/02/20 04:45 PT 20.2 SECONDS (11.8-14.3) 06/26/20 21:50 INR Target Range - 06/26/20 21:50 INR 1.79 (0.8-1.3) H 06/26/20 21:50 APTT 67.0 SECONDS (22.9-36.5) H 06/26/20 21:50 PTT Comment - 06/26/20 21:50 D-Dimer 1.69 ug/ml (0.0-0.57) H* 07/10/20 04:25 Sample Site Lr 07/10/20 04:51 ABG pH 7.560 (7.35-7.45) H* 07/10/20 04:51 ABG pCO2 39.0 mmHg (35.0-45.0) 07/10/20 04:51 ABG pO2 50.0 mmHg (80.0-100.0) L 07/10/20 04:51 ABG HCO3 34.9 mmol/L (22-26) H* 07/10/20 04:51 ABG O2 Saturation 90.0 % (90-100) 07/10/20 04:51 ABG Base Excess 11.7 mmol/L (-2.0-2.0) H 07/10/20 04:51 Mauro Test Pos 07/10/20 04:51 A-a Gradient 158.0 mmHg 07/10/20 04:51 FiO2 36.0 07/10/20 04:51 Blood Gas Comments Mere well ae 07/10/20 04:51 Sodium 138 mmol/L (136-145) 07/10/20 04:25 Corrected Sodium 139 mmol/L (136-145) 07/10/20 04:25 Potassium 4.6 mmol/L (3.5-5.1) 07/10/20 04:25 Chloride 103 mmol/L (98-107) 07/10/20 04:25 Carbon Dioxide 32.3 mmol/L (21-32) H 07/10/20 04:25 BUN 21 mg/dL (7-18) H 07/10/20 04:25 Creatinine 0.61 mg/dL (0.70-1.30) L 07/10/20 04:25 Est GFR (MDRD) Af Amer > 60 (>60) 07/10/20 04:25 Est GFR (MDRD) Non-Af > 60 (>60) 07/10/20 04:25 Glucose 143 mg/dL (65-99) H 07/10/20 04:25 POC Glucose (mg/dL) 94 mg/dL (65-99) 06/27/20 16:04 Calcium 7.9 mg/dL (8.5-10.1) L 07/10/20 04:25 Corrected Calcium 9.7 mg/dL (8.5-10.1) 07/10/20 04:25 Magnesium 2.1 mg/dL (1.7-2.9) 07/09/20 05:24 Iron 74 ug/dL (50-175) 07/01/20 04:20 Transferrin 130 mg/dL (202-364) L 07/01/20 04:20 Ferritin 348 ng/mL (26-388) 07/01/20 04:20 Total Bilirubin 0.30 mg/dL (0.2-1.0) 07/10/20 04:25 AST 24 Units/L (15-37) 07/10/20 04:25 ALT 20 Units/L (12-78) 07/10/20 04:25 Alkaline Phosphatase 53 Units/L (46-116) 07/10/20 04:25 Creatine Kinase 87 Units/L (39-308) 06/26/20 21:50 CK-MB (CK-2) < 1.0 ng/mL (0-4.0) 06/26/20 21:50 CK/CKMB % Calc 1.2 % (<4) 06/26/20 21:50 Troponin I 0.02 ng/mL (0-1.5) 06/27/20 00:05 B-Natriuretic Peptide 132 pg/mL (0-79) H 07/08/20 04:35 Total Protein 4.3 g/dL (6.4-8.2) L 07/10/20 04:25 Albumin 1.8 g/dL (3.4-5.0) L 07/10/20 04:25 Globulin 2.5 g/dL (2.5-4.5) 07/10/20 04:25 Albumin/Globulin Ratio 0.7 Ratio (1.1-2.1) L 07/10/20 04:25 Amylase 70 Units/L (25-115) 06/26/20 21:50 Lipase 51 Units/L (73-393) L 06/26/20 21:50 Vitamin B12 1245 pg/mL (193-986) H 07/01/20 04:20 Folate 7.3 ng/mL (>8.6) L 07/01/20 04:20 Specimen Type Catherized urine 06/26/20 21:43 Urine Color Yellow (YELLOW) 06/26/20 21:43 Urine Appearance Cloudy (CLEAR) 06/26/20 21:43 Urine pH 5.0 (5.0 - 8.0) 06/26/20 21:43 Ur Specific [place] 1.025 (1.000-1.030) 06/26/20 21:43 Urine Protein 3+ (NEGATIVE) 06/26/20 21:43 Urine Glucose (UA) Negative (NEGATIVE) 06/26/20 21:43 Urine Ketones Negative (NEGATIVE) 06/26/20 21:43 Urine Occult Blood 4+ (NEGATIVE) 06/26/20 21:43 Urine Nitrite Negative (NEGATIVE) 06/26/20 21:43 Urine Bilirubin Negative (NEGATIVE) 06/26/20 21:43 Urine Urobilinogen Normal (NORMAL) 06/26/20 21:43 Ur Leukocyte Esterase 3+ (NEGATIVE) 06/26/20 21:43 Urine RBC 0-2 /HPF (0-3) 06/26/20 21:43 Urine WBC Tntc /HPF (0-5) A 06/26/20 21:43 Ur Squamous Epith Cells Negative /HPF (NEGATIVE) 06/26/20 21:43 Urine Bacteria 3+ /HPF (NEGATIVE) 06/26/20 21:43 Urine Mucus Moderate /HPF (NEGATIVE) 06/26/20 21:43 Ur Culture Indicated? Yes/culture set up 06/26/20 21:43 Digoxin 0.62 ng/mL (0.9-2) L 07/05/20 04:56 SARS-CoV-2 (PCR) Positive (NEGATIVE) A 06/26/20 22:11 Influenza Type A (PCR) Negative (NEGATIVE) 06/26/20 22:11 Influenza Type B (PCR) Negative (NEGATIVE) 06/26/20 22:11 RSV (PCR) Negative (NEGATIVE) 06/26/20 22:11 Plan (1) Hypoxemia: Status: Acute Plan: ICU SUPPLEMENTAL O2, CONTINUOUS CARDIAC MONITORING CONTINUE ANTICOAGULANT THERAPY, STRICT I&OS, BC AND UC ISOLATION, IV ATBX THERAPY (2) Multifocal pneumonia: Status: Acute (3) COVID-19 virus infection: Status: Acute (4) Acute urinary retention: Status: Acute (5) Pulmonary embolism: Status: Acute Qualifiers: Acute cor pulmonale presence: unspecified Chronicity: unspecified (6) Stomatitis, ulcerative: Status: Acute (7) CAD (coronary artery disease): Status: Acute
[2020-07-10] MEDS: BUTT CREAM (COMPOUND) TOP PRN (17:34)
[2020-07-10] MEDS: MAGIC MOUTHWASH MT PRN ×2 (17:35→20:53)
[2020-07-10] MEDS: NYSTATIN SUSP PO PRN (17:35)
[2020-07-10] MEDS: DULCOLAX SUPPOSITORY 10 MG RECTAL PRN (17:53)
[2020-07-10] MEDS: CELEXA PO SCH (20:05)
[2020-07-10] MEDS: MELATONIN PO SCH (20:05)
[2020-07-10] MEDS: ROCEPHIN VIAL 1 GRAM 1 G in NS 100 ML IV + SPIKE MINIBAG* 100 ML IV SCH (20:54)
[2020-07-10] MEDS: ZITHROMAX INJ 500 MG VIAL 500 MG in NS 250 ML IV 250 ML IV SCH (23:07)
[2020-07-11] MEDS: NORCO 10/325 TAB PO PRN ×3 (02:20→20:40)
[2020-07-11] MEDS: ASCORBIC ACID INJ MULTI-DOSE VIAL 1,500 MG in NS 100 ML IV 100 ML IV SCH ×4 (02:25→20:35)
[2020-07-11] MEDS: MAGIC MOUTHWASH MT PRN ×3 (02:30→20:45)
[2020-07-11 05:02] LABS: BASOPHILS % (AUTO) 0.2 % (0.2-1.0); HEMATOCRIT 29.2 % (42.0-54.0); HEMOGLOBIN 9.7 g/dL (13.5-18.0); LYMPHOCYTES # (AUTO) 0.3 X10^3/uL (1.3-2.9); LYMPHOCYTES % (AUTO) 2.9 % (21.0-51.0); MEAN CORPUSCULAR HEMOGLOBIN 32.7 pg (27.0-34.0); MEAN CORPUSCULAR HGB CONC 33.2 g/dL (33.0-35.0); MEAN CORPUSCULAR VOLUME 98.6 fL (80.0-100.0); MEAN PLATELET VOLUME 8.2 fL (7.4-11.0); MONOCYTES # (AUTO) 0.3 x10^3/uL (0.3-0.8); MONOCYTES % (AUTO) 2.8 % (0.0-13.0); NEUTROPHILS # (AUTO) 11.4 x10^3/uL (2.2-4.8); NEUTROPHILS % (AUTO) 94.1 % (42.0-75.0); PLATELET COUNT 241 X10^3/uL (150.0-450.0); RED BLOOD COUNT 2.96 X10^6/uL (4.7-6.0); RED CELL DISTRIBUTION WIDTH 16.4 % (11.6-16.5); WHITE BLOOD COUNT 12.1 X10^3/uL (3.6-10.0)
[2020-07-11 05:09] LABS: ALANINE AMINOTRANSFERASE 19 Units/L (12-78); ALBUMIN 1.7 g/dL (3.4-5.0); ALKALINE PHOSPHATASE 50 Units/L (46-116); ASPARTATE AMINO TRANSFERASE 21 Units/L (15-37); BLOOD UREA NITROGEN 21 mg/dL (7-18); CALCIUM 7.8 mg/dL (8.5-10.1); CARBON DIOXIDE 30.9 mmol/L (21-32); CHLORIDE 103 mmol/L (98-107); COR CA(FOR HYPOALB) 9.6 mg/dL (8.5-10.1); COR NA(FOR HYPERGLY) 137 mmol/L (136-145); CREATININE 0.67 mg/dL (0.70-1.30); SODIUM 136 mmol/L (136-145); TOTAL PROTEIN 4.1 g/dL (6.4-8.2); eGFR NON BLACK RACES > 60 (>60)
[2020-07-11 05:31] LABS: PLATELET MORPHOLOGY COMMENT NORMAL (NORMAL)
--- NOTE | 2020-07-11 05:50 | RAD ---
PROCEDURE: Chest X-ray 1 View .HISTORY: Short of breath and COVID-19.TECHNIQUE: AP view .COMPARISON: 07/09/2020.TECHNICAL QUALITY: Satisfactory .FINDINGS:Unchanged start size.Mediastinum and hilar regions show no masses or lymphadenopathy. Tortuous aorta.Normal central vascularity .Patchy consolidation lung bases similar to previous study consistent with pneumonia with no pleural fluid or pneumothorax.No acute bony abnormality. Previous sternotomy.IMPRESSION:Unchanged pneumonia bilaterally.Electronically signed by: Anupam Garcai (Jul 11, 2020 05:49:03)
[2020-07-11] MEDS: ATIVAN TAB 1 MG PO SCH ×3 (05:59→21:15)
[2020-07-11] MEDS: CORDARONE TAB 200 MG PO SCH (06:00)
[2020-07-11] MEDS: ZOVIRAX VIAL 500 MG 500 MG in NS 100 ML IV + SPIKE MINIBAG* 100 ML IV SCH ×3 (06:00→21:50)
[2020-07-11] MEDS: SOLU-Medrol 40 MG VIAL IVP SCH ×3 (06:00→21:15)
[2020-07-11] MEDS: ZOFRAN INJ 4 MG VIAL IVP PRN (06:38)
[2020-07-11] MEDS: TRICOR TAB 160 MG PO SCH (08:24)
[2020-07-11] MEDS: COLACE CAP 100 MG PO SCH ×2 (08:24→20:40)
[2020-07-11] MEDS: LIORESAL PO SCH ×2 (08:25→20:40)
[2020-07-11] MEDS: ELIQUIS PO SCH ×2 (08:25→20:40)
[2020-07-11] MEDS: COREG TAB 3.125 MG PO SCH ×2 (08:25→20:40)
[2020-07-11] MEDS: PEPCID TAB 40 MG PO SCH ×2 (08:25→20:40)
[2020-07-11] MEDS: VITAMIN D3 125 mcg (5,000 UNITS) PO SCH (08:25)
[2020-07-11] MEDS: PLAVIX PO SCH (08:26)
[2020-07-11] MEDS: BROVANA IN SCH ×2 (08:51→21:40)
[2020-07-11] MEDS: XOPENEX 1.25 MG/3 ML NEBULE NEB SCH ×2 (08:58→21:47)
[2020-07-11] MEDS: MUCOMYST 20% 200 MG/ML NEB SCH ×2 (08:58→21:47)
[2020-07-11] MEDS: PULMICORT NEB TX 0.5 MG NEB SCH ×2 (08:58→21:47)
--- NOTE | 2020-07-11 11:21 | PCM.PROG ---
Progress Note Progress Note for Day of Date of Exam: 07/11/20 Subjective Subjective: Pt is a 69-year-old white male w/ hx of pulmonary embolism, atrial fibrillation, that is admitted and being treated for COVID-19 pneumonia with hypoxia. This morning patient is in recliner chair comfortably. No acute events overnight. His is still requiring supplemental oxygen of 4L nasal cannula. Labs/imaging: Wbc 12.1, Hgb 9.7, Plt 241, Na 136, K 4.7, Cr 0.67, Glucose 122, AST 21, ALT 19, ALKP 50, CXR: unchanged bilateral pneumonia. His treatment course includes supplemental oxygen, pulmonary toileting, aggressive RT with weaning of oxygen concentration requirements, Solumedrol 80mg Q8H, and home medications. He will need PT in the home following discharge. Otherwise, continue current treatment plan. Monitor and follow up labs/imaging in the morning. Past Medical Family Social History Past Med/Fam/Surg Hx: No changes since H&P Allergies: Allergies No Known Drug Allergies Allergy (Verified 06/26/20 21:29) Review of Systems ROS: No change since H&P Vital Signs and I&O's Vital Signs: Temperature 97.8 F Pulse Rate 62 Respiratory Rate 17 Blood Pressure 109/62 O2 Sat by Pulse Oximetry 90 Intake and Output: Intake & Output 07/08/20 07/09/20 07/10/20 07/11/20 23:59 23:59 23:59 23:59 Intake Total 2942 / 2942 2847 / 2847 2762 / 2762 668 / 668 Output Total 2925 / 2925 2050 / 2050 1350 / 1350 350 / 350 Balance 797 / 797 1412 / 1412 318 / 318 Physical Exam Oriented: Normal Eyes: Normal Ear: Normal Nose: Normal Throat: Normal Respiratory: Diminished Cardiovascular: Normal; negative Edema Auscultation: Bowel Sounds: Normal Tenderness: Normal Skin: Decreased Turgur, Wound (DEEP ABRASION WITH THICK SCABBING TO LEFT CARTER) and Bruising Musculoskeletal: Leg and Instability Mood Description: Calm Affect: Anxious Speech Pattern: Clear and Appropriate Laboratory and Diagnostics Result Diagrams: 07/11/20 04:20 07/11/20 04:20 Labs: 06/26/20 22:00 Blood Blood Culture - Final 06/26/20 21:50 Blood Blood Culture - Final 06/27/20 06:09 Sputum - Expectorated Sputum Sputum Culture - Final 06/27/20 06:09 Sputum - Expectorated Sputum - Final 06/26/20 21:43 Urine,Catheterized Urine Culture - Final Enterococcus Faecalis Laboratory WBC 12.1 X10^3/uL (3.6-10.0) H 07/11/20 04:20 RBC 2.96 X10^6/uL (4.7-6.0) L 07/11/20 04:20 Hgb 9.7 g/dL (13.5-18.0) L 07/11/20 04:20 Hct 29.2 % (42.0-54.0) L 07/11/20 04:20 MCV 98.6 fL (80.0-100.0) 07/11/20 04:20 MCH 32.7 pg (27.0-34.0) 07/11/20 04:20 MCHC 33.2 g/dL (33.0-35.0) 07/11/20 04:20 RDW 16.4 % (11.6-16.5) 07/11/20 04:20 Plt Count 241 X10^3/uL (150.0-450.0) 07/11/20 04:20 Plt Count Comment Adequate (ADEQUATE) 07/11/20 04:20 MPV 8.2 fL (7.4-11.0) 07/11/20 04:20 Neut % (Auto) 94.1 % (42.0-75.0) H 07/11/20 04:20 Lymph % (Auto) 2.9 % (21.0-51.0) L 07/11/20 04:20 Douglas % (Auto) 2.8 % (0.0-13.0) 07/11/20 04:20 Eos % (Auto) 0.0 % (0.9-2.9) L 07/11/20 04:20 Baso % (Auto) 0.2 % (0.2-1.0) 07/11/20 04:20 Neut # (Auto) 11.4 x10^3/uL (2.2-4.8) H 07/11/20 04:20 Lymph # (Auto) 0.3 X10^3/uL (1.3-2.9) L 07/11/20 04:20 Douglas # (Auto) 0.3 x10^3/uL (0.3-0.8) 07/11/20 04:20 Eos # (Auto) 0.0 x10^3/uL (0.0-0.2) 07/11/20 04:20 Baso # (Auto) 0.0 X10^3/uL (0.0-0.1) 07/11/20 04:20 Absolute Nucleated RBC 0.1 /100WBC 07/11/20 04:20 Total Counted 100 07/11/20 04:20 Neutrophils % (Manual) 98 % (39-76) H 07/11/20 04:20 Band Neutrophils % 5 % (0-10) 07/08/20 04:35 Lymphocytes % (Manual) 1 % (13-43) L 07/11/20 04:20 Monocytes % (Manual) 1 % (4-9) L 07/11/20 04:20 Metamyelocytes % 1 07/04/20 05:58 Myelocytes % 1 07/04/20 05:58 Nucleated RBCs 2 07/02/20 04:45 Plt Morphology Comment Normal (NORMAL) 07/11/20 04:20 RBC Morphology Normal (NORMAL) 07/11/20 04:20 Hypochromasia Slight A 07/07/20 05:07 Rouleaux Present 07/02/20 04:45 PT 20.2 SECONDS (11.8-14.3) 06/26/20 21:50 INR Target Range - 06/26/20 21:50 INR 1.79 (0.8-1.3) H 06/26/20 21:50 APTT 67.0 SECONDS (22.9-36.5) H 06/26/20 21:50 PTT Comment - 06/26/20 21:50 D-Dimer 1.69 ug/ml (0.0-0.57) H* 07/10/20 04:25 Sample Site Lr 07/10/20 04:51 ABG pH 7.560 (7.35-7.45) H* 07/10/20 04:51 ABG pCO2 39.0 mmHg (35.0-45.0) 07/10/20 04:51 ABG pO2 50.0 mmHg (80.0-100.0) L 07/10/20 04:51 ABG HCO3 34.9 mmol/L (22-26) H* 07/10/20 04:51 ABG O2 Saturation 90.0 % (90-100) 07/10/20 04:51 ABG Base Excess 11.7 mmol/L (-2.0-2.0) H 07/10/20 04:51 Mauro Test Pos 07/10/20 04:51 A-a Gradient 158.0 mmHg 07/10/20 04:51 FiO2 36.0 07/10/20 04:51 Blood Gas Comments Mere well ae 07/10/20 04:51 Sodium 136 mmol/L (136-145) 07/11/20 04:20 Corrected Sodium 137 mmol/L (136-145) 07/11/20 04:20 Potassium 4.7 mmol/L (3.5-5.1) 07/11/20 04:20 Chloride 103 mmol/L (98-107) 07/11/20 04:20 Carbon Dioxide 30.9 mmol/L (21-32) 07/11/20 04:20 BUN 21 mg/dL (7-18) H 07/11/20 04:20 Creatinine 0.67 mg/dL (0.70-1.30) L 07/11/20 04:20 Est GFR (MDRD) Af Amer > 60 (>60) 07/11/20 04:20 Est GFR (MDRD) Non-Af > 60 (>60) 07/11/20 04:20 Glucose 122 mg/dL (65-99) H 07/11/20 04:20 POC Glucose (mg/dL) 94 mg/dL (65-99) 06/27/20 16:04 Calcium 7.8 mg/dL (8.5-10.1) L 07/11/20 04:20 Corrected Calcium 9.6 mg/dL (8.5-10.1) 07/11/20 04:20 Magnesium 2.1 mg/dL (1.7-2.9) 07/09/20 05:24 Iron 74 ug/dL (50-175) 07/01/20 04:20 Transferrin 130 mg/dL (202-364) L 07/01/20 04:20 Ferritin 348 ng/mL (26-388) 07/01/20 04:20 Total Bilirubin 0.20 mg/dL (0.2-1.0) 07/11/20 04:20 AST 21 Units/L (15-37) 07/11/20 04:20 ALT 19 Units/L (12-78) 07/11/20 04:20 Alkaline Phosphatase 50 Units/L (46-116) 07/11/20 04:20 Creatine Kinase 87 Units/L (39-308) 06/26/20 21:50 CK-MB (CK-2) < 1.0 ng/mL (0-4.0) 06/26/20 21:50 CK/CKMB % Calc 1.2 % (<4) 06/26/20 21:50 Troponin I 0.02 ng/mL (0-1.5) 06/27/20 00:05 B-Natriuretic Peptide 132 pg/mL (0-79) H 07/08/20 04:35 Total Protein 4.1 g/dL (6.4-8.2) L 07/11/20 04:20 Albumin 1.7 g/dL (3.4-5.0) L 07/11/20 04:20 Globulin 2.4 g/dL (2.5-4.5) L 07/11/20 04:20 Albumin/Globulin Ratio 0.7 Ratio (1.1-2.1) L 07/11/20 04:20 Amylase 70 Units/L (25-115) 06/26/20 21:50 Lipase 51 Units/L (73-393) L 06/26/20 21:50 Vitamin B12 1245 pg/mL (193-986) H 07/01/20 04:20 Folate 7.3 ng/mL (>8.6) L 07/01/20 04:20 Specimen Type Catherized urine 06/26/20 21:43 Urine Color Yellow (YELLOW) 06/26/20 21:43 Urine Appearance Cloudy (CLEAR) 06/26/20 21:43 Urine pH 5.0 (5.0 - 8.0) 06/26/20 21:43 Ur Specific [place] 1.025 (1.000-1.030) 06/26/20 21:43 Urine Protein 3+ (NEGATIVE) 06/26/20 21:43 Urine Glucose (UA) Negative (NEGATIVE) 06/26/20 21:43 Urine Ketones Negative (NEGATIVE) 06/26/20 21:43 Urine Occult Blood 4+ (NEGATIVE) 06/26/20 21:43 Urine Nitrite Negative (NEGATIVE) 06/26/20 21:43 Urine Bilirubin Negative (NEGATIVE) 06/26/20 21:43 Urine Urobilinogen Normal (NORMAL) 06/26/20 21:43 Ur Leukocyte Esterase 3+ (NEGATIVE) 06/26/20 21:43 Urine RBC 0-2 /HPF (0-3) 06/26/20 21:43 Urine WBC Tntc /HPF (0-5) A 06/26/20 21:43 Ur Squamous Epith Cells Negative /HPF (NEGATIVE) 06/26/20 21:43 Urine Bacteria 3+ /HPF (NEGATIVE) 06/26/20 21:43 Urine Mucus Moderate /HPF (NEGATIVE) 06/26/20 21:43 Ur Culture Indicated? Yes/culture set up 06/26/20 21:43 Digoxin 0.62 ng/mL (0.9-2) L 07/05/20 04:56 SARS-CoV-2 (PCR) Positive (NEGATIVE) A 06/26/20 22:11 Influenza Type A (PCR) Negative (NEGATIVE) 06/26/20 22:11 Influenza Type B (PCR) Negative (NEGATIVE) 06/26/20 22:11 RSV (PCR) Negative (NEGATIVE) 06/26/20 22:11 SARS CoV-2 RNA Rapid AIDAN Positive (NEGATIVE) A 07/10/20 14:54 Plan (1) Hypoxemia: Status: Acute Plan: ICU SUPPLEMENTAL O2, CONTINUOUS CARDIAC MONITORING CONTINUE ANTICOAGULANT THERAPY, STRICT I&OS, BC AND UC ISOLATION, IV ATBX THERAPY (2) Multifocal pneumonia: Status: Acute (3) COVID-19 virus infection: Status: Acute (4) Acute urinary retention: Status: Acute (5) Pulmonary embolism: Status: Acute Qualifiers: Acute cor pulmonale presence: unspecified Chronicity: unspecified (6) Stomatitis, ulcerative: Status: Acute (7) CAD (coronary artery disease): Status: Acute
[2020-07-11] MEDS: NS 1000 ML 1,000 ML IV SCH (20:40)
[2020-07-11] MEDS: CELEXA PO SCH (20:40)
[2020-07-11] MEDS: MELATONIN PO SCH (20:40)
[2020-07-11] MEDS: ROCEPHIN VIAL 1 GRAM 1 G in NS 100 ML IV + SPIKE MINIBAG* 100 ML IV SCH (21:15)
[2020-07-11] MEDS: ZITHROMAX INJ 500 MG VIAL 500 MG in NS 250 ML IV 250 ML IV SCH (22:55)
[2020-07-12] MEDS: MAGIC MOUTHWASH MT PRN (02:30)
[2020-07-12] MEDS: ASCORBIC ACID INJ MULTI-DOSE VIAL 1,500 MG in NS 100 ML IV 100 ML IV SCH ×4 (02:30→21:05)
[2020-07-12 05:31] LABS: BASOPHILS # (AUTO) 0.1 X10^3/uL (0.0-0.1); BASOPHILS % (AUTO) 0.6 % (0.2-1.0); HEMATOCRIT 30.3 % (42.0-54.0); HEMOGLOBIN 10.2 g/dL (13.5-18.0); LYMPHOCYTES # (AUTO) 0.3 X10^3/uL (1.3-2.9); LYMPHOCYTES % (AUTO) 2.2 % (21.0-51.0); MEAN CORPUSCULAR HEMOGLOBIN 33.1 pg (27.0-34.0); MEAN CORPUSCULAR HGB CONC 33.5 g/dL (33.0-35.0); MEAN PLATELET VOLUME 8.3 fL (7.4-11.0); MONOCYTES # (AUTO) 0.4 x10^3/uL (0.3-0.8); MONOCYTES % (AUTO) 3.1 % (0.0-13.0); NEUTROPHILS % (AUTO) 94.1 % (42.0-75.0); PLATELET COUNT 200 X10^3/uL (150.0-450.0); RED BLOOD COUNT 3.07 X10^6/uL (4.7-6.0); RED CELL DISTRIBUTION WIDTH 16.3 % (11.6-16.5); WHITE BLOOD COUNT 11.7 X10^3/uL (3.6-10.0)
[2020-07-12 05:37] LABS: ALANINE AMINOTRANSFERASE 20 Units/L (12-78); ALBUMIN 1.8 g/dL (3.4-5.0); ALKALINE PHOSPHATASE 49 Units/L (46-116); ASPARTATE AMINO TRANSFERASE 22 Units/L (15-37); BLOOD UREA NITROGEN 17 mg/dL (7-18); CALCIUM 7.9 mg/dL (8.5-10.1); CARBON DIOXIDE 30.9 mmol/L (21-32); CHLORIDE 104 mmol/L (98-107); COR CA(FOR HYPOALB) 9.7 mg/dL (8.5-10.1); COR NA(FOR HYPERGLY) 138 mmol/L (136-145); CREATININE 0.59 mg/dL (0.70-1.30); SODIUM 137 mmol/L (136-145); TOTAL PROTEIN 4.2 g/dL (6.4-8.2); eGFR NON BLACK RACES > 60 (>60)
[2020-07-12] MEDS: ZOVIRAX VIAL 500 MG 500 MG in NS 100 ML IV + SPIKE MINIBAG* 100 ML IV SCH ×3 (05:50→22:35)
[2020-07-12] MEDS: SOLU-Medrol 40 MG VIAL IVP SCH ×2 (05:50→21:10)
[2020-07-12] MEDS: ATIVAN TAB 1 MG PO SCH ×3 (05:50→21:15)
[2020-07-12 06:02] LABS: PLATELET MORPHOLOGY COMMENT NORMAL (NORMAL)
[2020-07-12] MEDS: CORDARONE TAB 200 MG PO SCH (08:42)
[2020-07-12] MEDS: ELIQUIS PO SCH ×2 (08:43→21:15)
[2020-07-12] MEDS: LIORESAL PO SCH ×2 (08:43→21:15)
[2020-07-12] MEDS: COREG TAB 3.125 MG PO SCH ×2 (08:43→21:15)
[2020-07-12] MEDS: PEPCID TAB 40 MG PO SCH ×2 (08:44→21:15)
[2020-07-12] MEDS: TRICOR TAB 160 MG PO SCH (08:44)
[2020-07-12] MEDS: VITAMIN D3 125 mcg (5,000 UNITS) PO SCH (08:45)
[2020-07-12] MEDS: PLAVIX PO SCH (08:45)
[2020-07-12] MEDS: COLACE CAP 100 MG PO SCH ×2 (08:58→21:05)
[2020-07-12 09:17] LABS: ABG BASE EXCESS 9.7 mmol/L (-2.0-2.0)
[2020-07-12 09:18] LABS: ABG HCO3 33.5 mmol/L (22-26)
[2020-07-12] MEDS: NORCO 10/325 TAB PO PRN ×2 (09:27→15:29)
[2020-07-12] MEDS: NYSTATIN SUSP PO PRN ×2 (09:27→15:30)
[2020-07-12] MEDS: BROVANA IN SCH ×2 (09:33→21:33)
[2020-07-12] MEDS: MUCOMYST 20% 200 MG/ML NEB SCH ×2 (09:39→21:33)
[2020-07-12] MEDS: XOPENEX 1.25 MG/3 ML NEBULE NEB SCH ×2 (09:39→21:33)
[2020-07-12] MEDS: PULMICORT NEB TX 0.5 MG NEB SCH ×2 (09:39→21:33)
[2020-07-12] MEDS: MYLICON TAB 80 MG CHEW PO PRN (14:52)
[2020-07-12] MEDS: ZOFRAN INJ 4 MG VIAL IVP PRN (14:52)
[2020-07-12] MEDS: BUTT CREAM (COMPOUND) TOP PRN (15:01)
[2020-07-12] MEDS: LASIX IVP SCH (17:01)
[2020-07-12] MEDS ORDERED: SOLU-Medrol 40 MG VIAL ONE (19:36)
[2020-07-12] MEDS: CELEXA PO SCH (21:05)
[2020-07-12] MEDS: NS 1000 ML 1,000 ML IV SCH (21:15)
[2020-07-12] MEDS: MELATONIN PO SCH (21:15)
[2020-07-12] MEDS: ROCEPHIN VIAL 1 GRAM 1 G in NS 100 ML IV + SPIKE MINIBAG* 100 ML IV SCH (21:40)
[2020-07-12] MEDS: ZITHROMAX INJ 500 MG VIAL 500 MG in NS 250 ML IV 250 ML IV SCH (23:10)
[2020-07-13] MEDS: NORCO 10/325 TAB PO PRN ×2 (01:05→12:15)
[2020-07-13] MEDS: ZOFRAN INJ 4 MG VIAL IVP PRN ×2 (01:15→10:30)
[2020-07-13] MEDS: MYLICON TAB 80 MG CHEW PO PRN (01:15)
[2020-07-13] MEDS: ASCORBIC ACID INJ MULTI-DOSE VIAL 1,500 MG in NS 100 ML IV 100 ML IV SCH ×3 (03:15→16:36)
[2020-07-13] MEDS: ZOVIRAX VIAL 500 MG 500 MG in NS 100 ML IV + SPIKE MINIBAG* 100 ML IV SCH ×2 (05:19→13:44)
[2020-07-13] MEDS: ATIVAN TAB 1 MG PO SCH ×2 (07:00→13:44)
[2020-07-13] MEDS: MUCOMYST 20% 200 MG/ML NEB SCH (08:15)
[2020-07-13] MEDS: XOPENEX 1.25 MG/3 ML NEBULE NEB SCH (08:15)
[2020-07-13] MEDS: PULMICORT NEB TX 0.5 MG NEB SCH (08:15)
[2020-07-13] MEDS: BROVANA IN SCH (08:15)
[2020-07-13] MEDS: CORDARONE TAB 200 MG PO SCH (08:54)
[2020-07-13] MEDS: COLACE CAP 100 MG PO SCH (08:54)
[2020-07-13] MEDS: COREG TAB 3.125 MG PO SCH (08:54)
[2020-07-13] MEDS: LIORESAL PO SCH (08:55)
[2020-07-13] MEDS: ELIQUIS PO SCH (08:55)
[2020-07-13] MEDS: LASIX IVP SCH (08:56)
[2020-07-13] MEDS: PEPCID TAB 40 MG PO SCH (08:57)
[2020-07-13] MEDS: PLAVIX PO SCH (08:57)
[2020-07-13] MEDS: SOLU-Medrol 40 MG VIAL IVP SCH (08:58)
[2020-07-13] MEDS: VITAMIN D3 125 mcg (5,000 UNITS) PO SCH (08:58)
[2020-07-13] MEDS: TRICOR TAB 160 MG PO SCH (08:58)
[2020-07-13] MEDS: NYSTATIN SUSP PO PRN (13:45)
[2020-07-13 16:29] VITALS: BP 81/52
== END 2020-07-13 15:41 | disposition home health service (06) | DRG 177 ==
LOC: ER 21:26 → ICU 06-27 00:16
PROVIDERS: ADMIT Internal Medicine; ATTEND Internal Medicine
DX: R53.1 Weakness; N39.0 Urinary tract infection, site not specified; I25.10 Atherosclerotic heart disease of native coronary artery without angina pectoris; J12.82 Pneumonia due to coronavirus disease 2019; K12.1 Other forms of stomatitis; I50.9 Heart failure, unspecified; Z79.01 Long term (current) use of anticoagulants; Z86.16 Personal history of COVID-19; F41.8 Other specified anxiety disorders; I11.0 Hypertensive heart disease with heart failure; Z87.828 Personal history of other (healed) physical injury and trauma; R62.7 Adult failure to thrive; I87.2 Venous insufficiency (chronic) (peripheral); R26.89 Other abnormalities of gait and mobility; M50.30 Other cervical disc degeneration, unspecified cervical region; I48.91 Unspecified atrial fibrillation; U07.1 COVID-19; I26.99 Other pulmonary embolism without acute cor pulmonale; R06.02 Shortness of breath; R94.31 Abnormal electrocardiogram [ECG] [EKG]; B95.2 Enterococcus as the cause of diseases classified elsewhere; M19.90 Unspecified osteoarthritis, unspecified site

== ENCOUNTER 2020-07-22 19:08 | Inpatient (IN) ==
--- NOTE | 2020-07-22 19:43 | DR.SOBA ---
HPI <Jim Acevedo - Last Filed: 08/09/20 09:50> Time Seen Time Seen by Provider: 07/22/20 19:35 Primary Care Physician Primary Care Physician: IGOR HPI Comment HPI Comment: PATIENT WITH A HISTORY OF LOWER EXTREMITY PARAPLEGIA, PULMONARY EMBOLISM, COVID, HOSPITALIZED FOR 18 DAYS IN JUN 2020, COMPLAINS OF INCREASING DYSPNEA ALONG WITH HIS LOW CHRONIC BACK PAIN. PATIENT IS ON HOME OXYGEN, AND TREATED WITH NORCO AND BACOLFEN FOR HIS BACK PAIN. Complaints Chief Complaint Doctors Comments: COMPLAINS OF DYSPNEA AND CHRONIC LOW BACK PAIN Chief Complaint:: PT BEING SOB AND CHRONIC BACK PAIN Reviewed Nurses Notes Reviewed: Yes Source History Provided: EMS Mode of Arrival Mode of Arrival: EMS Timing Onset of Chief Complaint: 07/21/20 Duration Duration: Months (CHRONIC LOW BACK PAIN FOR YEARS) Context Currently on:: Steroids If Cough Cough: Nonproductive <Luna Branham - Last Filed: 07/23/20 01:16> HPI Comment HPI Comment: In with increasing sob and weakness after being discharged late last month after 18 day stay for covid pneumonia; he was initially diagnosed 06/10/20 and sent home with oxygen after a few days in hospital; he came back with worsening symptoms and was admitted; he's been on home oxygen for the past several weeks but feels his breathing is worsening; he's also noted worsening back pain despite norco 10/325 q 6 hours at home; no fever, chills, n/v/d. He has a spot on his rt upper anterior thigh which has been there since his last hospitalization reportedly d/t the strap of gonzales being tied down over the area; he was to [facility] w/Dr Crews today for debridement. PMH <Jim Acevedo - Last Filed: 08/09/20 09:50> PMH Past Medical History: Yes Past Medical History: Anxiety, Coronary Artery Disease and Hypertension Past Surgical History: Yes Surgical History: CABG/Valve Surgery and Ortho Surgery Family History History of Family Medical Conditions: No Social History Does any household member use tobacco: No Alcohol Use: None Do you use any recreational Drugs:: No Lives With: Spouse Lives Where: Home Infectious screening In the last 2 months have you had wt loss of >10#?: NO Have you had fever, night sweats or hemotysis?: No Have you traveled outside the country in the last 6 months?: No Isolation: Standard ROS <Jim Acevedo - Last Filed: 08/09/20 09:50> Review of Systems Constitutional: See HPI Eyes: No Symptoms Reported ENTM: No Symptoms Reported Respiratoy: See HPI, Non-Productive Cough and Short of Breath Cardiovascular: No Symptoms Reported Gastrointestinal/Abdominal: No Symptoms Reported Genitourinary: No Symptoms Reported Neurological: No Symptoms Reported and See HPI Musculoskeletal: No Symptoms Reported Integumentary: No Symptoms Reported Hematologic/Lymphatic: No Symptoms Reported Endocrine: No Symptoms Reported Psychiatric: No Symptoms Reported All Other Systems: Reviewed and Negative PE <Jim Acevedo - Last Filed: 08/09/20 09:50> Vital Signs Vitals: Temperature 100.2 F Pulse Rate [Left Brachial] 103 Pulse Rate 99 Respiratory Rate 20 Blood Pressure [Left Arm] 130/72 Blood Pressure 101/56 O2 Sat by Pulse Oximetry 90 General Limitations: Physical Limitation (PARAPLEGIA) General Appearance: Alert and In No Apparent Distress Head Head Exam: Normal Inspection Eyes Eye exam: Normal Appearance, PERRL and EOMI ENT ENT Exam: Normal Exam and Normal Oropharynx Neck Neck Exam: Normal Inspection and Full ROM Chest Chest Inspection: Normal Inspection and Symmetric Chest Wall Rise Respiratory Respiratory Exam: Normal Lung Sounds Bilat (EXCEPT FOR DECREASED BREATH SOUNDS AT BASES) Respiratory Exam: Left: Decreased Breath Sounds Cardiovascular Cardiovascular Exam: Regular Rate Abdominal Exam Abdominal Exam: Normal Inspection Extremities Extremities Exam: Normal Inspection (EXCEPT FOR HEALING WOUND PROXIMAL RIGHT THIGH 4CM X 3CM , SEROSANGUINEOUS DRAINAGE) Back Back Exam: Normal Inspection Neurologic Neurological Exam: Alert, Oriented X3 and Motor Sensory Deficit (PARAPLEGIA T- 12) <Luna Branham - Last Filed: 07/23/20 01:16> Vital Signs Vitals: Temperature 100.2 F Pulse Rate [Left Brachial] 103 Pulse Rate 99 Respiratory Rate 20 Blood Pressure [Left Arm] 130/72 Blood Pressure 101/56 O2 Sat by Pulse Oximetry 90 <Luna Branham - Last Filed: 07/23/20 01:16> Differential Diagnosis Differential Diagnosis: Bronchitis, COPD, Pneumonia, Respiratory Failure and URI COURSE <Jim Acevedo - Last Filed: 08/09/20 09:50> Treatment Treatment: PATIENT CARE ENDORSED TO DR BRANHAM AT 2020 FOR DISPOSITIO <Luna Branham - Last Filed: 07/23/20 01:16> Reevaluation 1st: Improved (resting quietly with at side; smiling asking for "plenty of pain medication" during admission) Consultation Call Returned: 01:00 (Dr Barry accepts admission) ROR <Jim Acevedo - Last Filed: 08/09/20 09:50> Labs Reviewed Result Diagrams: 07/31/20 05:12 07/31/20 05:12 Laboratory: 07/26/20 18:04 Blood Blood Culture - Final 07/26/20 17:50 Blood Blood Culture - Final 07/23/20 11:40 Thigh - Right Gram Stain - Final 07/23/20 11:40 Thigh - Right Wound Culture - Final 07/23/20 02:00 Thigh - Right Gram Stain - Final 07/23/20 02:00 Thigh - Right Wound Culture - Final WBC 3.2 X10^3/uL (3.6-10.0) L 07/27/20 05:34 RBC 2.71 X10^6/uL (4.7-6.0) L 07/27/20 05:34 Hgb 9.1 g/dL (13.5-18.0) L 07/27/20 05:34 Hct 27.1 % (42.0-54.0) L 07/27/20 05:34 MCV 99.8 fL (80.0-100.0) 07/27/20 05:34 MCH 33.6 pg (27.0-34.0) 07/27/20 05:34 MCHC 33.7 g/dL (33.0-35.0) 07/27/20 05:34 RDW 19.5 % (11.6-16.5) H 07/27/20 05:34 Plt Count 166 X10^3/uL (150.0-450.0) 07/27/20 05:34 Plt Count Comment Decreased (ADEQUATE) 07/26/20 05:55 MPV 9.2 fL (7.4-11.0) 07/27/20 05:34 Neut % (Auto) 65.3 % (42.0-75.0) 07/27/20 05:34 Lymph % (Auto) 19.1 % (21.0-51.0) L 07/27/20 05:34 Harmon % (Auto) 5.5 % (0.0-13.0) 07/27/20 05:34 Eos % (Auto) 9.5 % (0.9-2.9) H 07/27/20 05:34 Baso % (Auto) 0.6 % (0.2-1.0) 07/27/20 05:34 Neut # (Auto) 2.1 x10^3/uL (2.2-4.8) L 07/27/20 05:34 Lymph # (Auto) 0.6 X10^3/uL (1.3-2.9) L 07/27/20 05:34 Harmon # (Auto) 0.2 x10^3/uL (0.3-0.8) L 07/27/20 05:34 Eos # (Auto) 0.3 x10^3/uL (0.0-0.2) H 07/27/20 05:34 Baso # (Auto) 0.0 X10^3/uL (0.0-0.1) 07/27/20 05:34 Absolute Nucleated RBC 0.2 /100WBC 07/27/20 05:34 Total Counted 100 07/26/20 05:55 Neutrophils % (Manual) 59 % (39-76) 07/26/20 05:55 Lymphocytes % (Manual) 26 % (13-43) 07/26/20 05:55 Monocytes % (Manual) 5 % (4-9) 07/26/20 05:55 Eosinophils % (Manual) 10 % (0-6) H 07/26/20 05:55 Plt Morphology Comment Normal (NORMAL) 07/26/20 05:55 RBC Morphology Abnormal (NORMAL) 07/26/20 05:55 Anisocytosis Slight A 07/26/20 05:55 Macrocytosis Slight A 07/25/20 05:30 PT 13.9 SECONDS (11.8-14.3) 07/22/20 20:37 INR Target Range - 07/22/20 20:37 INR 1.10 (0.8-1.3) 07/22/20 20:37 Sample Site Lra 07/27/20 04:01 ABG pH 7.480 (7.35-7.45) H 07/27/20 04:01 ABG pCO2 44.0 mmHg (35.0-45.0) 07/27/20 04:01 ABG pO2 53.0 mmHg (80.0-100.0) L 07/27/20 04:01 ABG HCO3 32.8 mmol/L (22-26) H* 07/27/20 04:01 ABG O2 Saturation 90.0 % (90-100) 07/27/20 04:01 ABG Base Excess 8.3 mmol/L (-2.0-2.0) H 07/27/20 04:01 Mauro Test Pos 07/27/20 04:01 A-a Gradient 605.0 mmHg 07/27/20 04:01 FiO2 100.0 07/27/20 04:01 Blood Gas Comments Mere well mt 07/27/20 04:01 Sodium 136 mmol/L (136-145) 07/27/20 05:34 Corrected Sodium TNP 07/27/20 05:34 Potassium 4.1 mmol/L (3.5-5.1) 07/27/20 05:34 Chloride 101 mmol/L (98-107) 07/27/20 05:34 Carbon Dioxide 28.9 mmol/L (21-32) 07/27/20 05:34 BUN 5 mg/dL (7-18) L 07/27/20 05:34 Creatinine 0.57 mg/dL (0.70-1.30) L 07/27/20 05:34 Est GFR (MDRD) Af Amer > 60 (>60) 07/27/20 05:34 Est GFR (MDRD) Non-Af > 60 (>60) 07/27/20 05:34 Glucose 94 mg/dL (65-99) 07/27/20 05:34 Calcium 7.9 mg/dL (8.5-10.1) L 07/27/20 05:34 Corrected Calcium 9.5 mg/dL (8.5-10.1) 07/27/20 05:34 Iron 20 ug/dL (50-175) L 07/23/20 04:45 Transferrin 158 mg/dL (202-364) L 07/23/20 04:45 Ferritin 470 ng/mL (26-388) H 07/23/20 04:45 Total Bilirubin 0.50 mg/dL (0.2-1.0) 07/27/20 05:34 AST 28 Units/L (15-37) 07/27/20 05:34 ALT 34 Units/L (12-78) 07/27/20 05:34 Alkaline Phosphatase 71 Units/L (46-116) 07/27/20 05:34 Troponin I 0.05 ng/mL (0-1.5) 07/22/20 20:37 B-Natriuretic Peptide 286 pg/mL (0-79) H 07/22/20 20:37 Total Protein 5.1 g/dL (6.4-8.2) L 07/27/20 05:34 Albumin 2.0 g/dL (3.4-5.0) L 07/27/20 05:34 Globulin 3.1 g/dL (2.5-4.5) 07/27/20 05:34 Albumin/Globulin Ratio 0.6 Ratio (1.1-2.1) L 07/27/20 05:34 Total PSA 1.20 ng/mL (0.13-4.0) 07/26/20 05:55 Vitamin B12 638 pg/mL (193-986) 07/23/20 04:45 Folate > 20.0 ng/mL (>8.6) 07/23/20 04:45 Total Estradiol 3.5 pg/mL (10.0-42.0) L 07/25/20 05:30 Total Testosterone 46 ng/dL (300-720) L 07/25/20 05:30 Specimen Type Random urine 07/26/20 17:10 Urine Color Yellow (YELLOW) 07/26/20 17:10 Urine Appearance Clear (CLEAR) 07/26/20 17:10 Urine pH 7.0 (5.0 - 8.0) 07/26/20 17:10 Ur Specific [place] 1.005 (1.000-1.030) 07/26/20 17:10 Urine Protein Negative (NEGATIVE) 07/26/20 17:10 Urine Glucose (UA) Negative (NEGATIVE) 07/26/20 17:10 Urine Ketones Negative (NEGATIVE) 07/26/20 17:10 Urine Occult Blood Negative (NEGATIVE) 07/26/20 17:10 Urine Nitrite Negative (NEGATIVE) 07/26/20 17:10 Urine Bilirubin Negative (NEGATIVE) 07/26/20 17:10 Urine Urobilinogen 1+ (NORMAL) 07/26/20 17:10 Ur Leukocyte Esterase Negative (NEGATIVE) 07/26/20 17:10 SARS CoV-2 RNA Rapid AIDAN Negative (NEGATIVE) 07/22/20 22:36 Tissue Pathology To follow 07/23/20 11:40 Blood Type A POSITIVE 07/26/20 18:04 Antibody Screen Negative 07/26/20 09:22 Crossmatch See Detail 07/26/20 09:22 Tx React Prelim Eval No evidence of htr 07/26/20 18:04 Tx React Symptoms Fever,chills, 07/26/20 18:04 Reaction Path Interpret No evidence of htr 07/26/20 18:[address]graham chávez 07/26/20 18:04 Blood Bank Comment Performed by Nerissa 07/26/20 18:04 <Luna Branham - Last Filed: 07/23/20 01:16> Labs Reviewed Laboratory Results Reviewed?: Yes Laboratory: 07/26/20 18:04 Blood Blood Culture - Final 07/26/20 17:50 Blood Blood Culture - Final 07/23/20 11:40 Thigh - Right Gram Stain - Final 07/23/20 11:40 Thigh - Right Wound Culture - Final 07/23/20 02:00 Thigh - Right Gram Stain - Final 07/23/20 02:00 Thigh - Right Wound Culture - Final WBC 3.2 X10^3/uL (3.6-10.0) L 07/27/20 05:34 RBC 2.71 X10^6/uL (4.7-6.0) L 07/27/20 05:34 Hgb 9.1 g/dL (13.5-18.0) L 07/27/20 05:34 Hct 27.1 % (42.0-54.0) L 07/27/20 05:34 MCV 99.8 fL (80.0-100.0) 07/27/20 05:34 MCH 33.6 pg (27.0-34.0) 07/27/20 05:34 MCHC 33.7 g/dL (33.0-35.0) 07/27/20 05:34 RDW 19.5 % (11.6-16.5) H 07/27/20 05:34 Plt Count 166 X10^3/uL (150.0-450.0) 07/27/20 05:34 Plt Count Comment Decreased (ADEQUATE) 07/26/20 05:55 MPV 9.2 fL (7.4-11.0) 07/27/20 05:34 Neut % (Auto) 65.3 % (42.0-75.0) 07/27/20 05:34 Lymph % (Auto) 19.1 % (21.0-51.0) L 07/27/20 05:34 Harmon % (Auto) 5.5 % (0.0-13.0) 07/27/20 05:34 Eos % (Auto) 9.5 % (0.9-2.9) H 07/27/20 05:34 Baso % (Auto) 0.6 % (0.2-1.0) 07/27/20 05:34 Neut # (Auto) 2.1 x10^3/uL (2.2-4.8) L 07/27/20 05:34 Lymph # (Auto) 0.6 X10^3/uL (1.3-2.9) L 07/27/20 05:34 Harmon # (Auto) 0.2 x10^3/uL (0.3-0.8) L 07/27/20 05:34 Eos # (Auto) 0.3 x10^3/uL (0.0-0.2) H 07/27/20 05:34 Baso # (Auto) 0.0 X10^3/uL (0.0-0.1) 07/27/20 05:34 Absolute Nucleated RBC 0.2 /100WBC 07/27/20 05:34 Total Counted 100 07/26/20 05:55 Neutrophils % (Manual) 59 % (39-76) 07/26/20 05:55 Lymphocytes % (Manual) 26 % (13-43) 07/26/20 05:55 Monocytes % (Manual) 5 % (4-9) 07/26/20 05:55 Eosinophils % (Manual) 10 % (0-6) H 07/26/20 05:55 Plt Morphology Comment Normal (NORMAL) 07/26/20 05:55 RBC Morphology Abnormal (NORMAL) 07/26/20 05:55 Anisocytosis Slight A 07/26/20 05:55 Macrocytosis Slight A 07/25/20 05:30 PT 13.9 SECONDS (11.8-14.3) 07/22/20 20:37 INR Target Range - 07/22/20 20:37 INR 1.10 (0.8-1.3) 07/22/20 20:37 Sample Site Lra 07/27/20 04:01 ABG pH 7.480 (7.35-7.45) H 07/27/20 04:01 ABG pCO2 44.0 mmHg (35.0-45.0) 07/27/20 04:01 ABG pO2 53.0 mmHg (80.0-100.0) L 07/27/20 04:01 ABG HCO3 32.8 mmol/L (22-26) H* 07/27/20 04:01 ABG O2 Saturation 90.0 % (90-100) 07/27/20 04:01 ABG Base Excess 8.3 mmol/L (-2.0-2.0) H 07/27/20 04:01 Mauro Test Pos 07/27/20 04:01 A-a Gradient 605.0 mmHg 07/27/20 04:01 FiO2 100.0 07/27/20 04:01 Blood Gas Comments Mere well mt 07/27/20 04:01 Sodium 136 mmol/L (136-145) 07/27/20 05:34 Corrected Sodium TNP 07/27/20 05:34 Potassium 4.1 mmol/L (3.5-5.1) 07/27/20 05:34 Chloride 101 mmol/L (98-107) 07/27/20 05:34 Carbon Dioxide 28.9 mmol/L (21-32) 07/27/20 05:34 BUN 5 mg/dL (7-18) L 07/27/20 05:34 Creatinine 0.57 mg/dL (0.70-1.30) L 07/27/20 05:34 Est GFR (MDRD) Af Amer > 60 (>60) 07/27/20 05:34 Est GFR (MDRD) Non-Af > 60 (>60) 07/27/20 05:34 Glucose 94 mg/dL (65-99) 07/27/20 05:34 Calcium 7.9 mg/dL (8.5-10.1) L 07/27/20 05:34 Corrected Calcium 9.5 mg/dL (8.5-10.1) 07/27/20 05:34 Iron 20 ug/dL (50-175) L 07/23/20 04:45 Transferrin 158 mg/dL (202-364) L 07/23/20 04:45 Ferritin 470 ng/mL (26-388) H 07/23/20 04:45 Total Bilirubin 0.50 mg/dL (0.2-1.0) 07/27/20 05:34 AST 28 Units/L (15-37) 07/27/20 05:34 ALT 34 Units/L (12-78) 07/27/20 05:34 Alkaline Phosphatase 71 Units/L (46-116) 07/27/20 05:34 Troponin I 0.05 ng/mL (0-1.5) 07/22/20 20:37 B-Natriuretic Peptide 286 pg/mL (0-79) H 07/22/20 20:37 Total Protein 5.1 g/dL (6.4-8.2) L 07/27/20 05:34 Albumin 2.0 g/dL (3.4-5.0) L 07/27/20 05:34 Globulin 3.1 g/dL (2.5-4.5) 07/27/20 05:34 Albumin/Globulin Ratio 0.6 Ratio (1.1-2.1) L 07/27/20 05:34 Total PSA 1.20 ng/mL (0.13-4.0) 07/26/20 05:55 Vitamin B12 638 pg/mL (193-986) 07/23/20 04:45 Folate > 20.0 ng/mL (>8.6) 07/23/20 04:45 Total Estradiol 3.5 pg/mL (10.0-42.0) L 07/25/20 05:30 Total Testosterone 46 ng/dL (300-720) L 07/25/20 05:30 Specimen Type Random urine 07/26/20 17:10 Urine Color Yellow (YELLOW) 07/26/20 17:10 Urine Appearance Clear (CLEAR) 07/26/20 17:10 Urine pH 7.0 (5.0 - 8.0) 07/26/20 17:10 Ur Specific [place] 1.005 (1.000-1.030) 07/26/20 17:10 Urine Protein Negative (NEGATIVE) 07/26/20 17:10 Urine Glucose (UA) Negative (NEGATIVE) 07/26/20 17:10 Urine Ketones Negative (NEGATIVE) 07/26/20 17:10 Urine Occult Blood Negative (NEGATIVE) 07/26/20 17:10 Urine Nitrite Negative (NEGATIVE) 07/26/20 17:10 Urine Bilirubin Negative (NEGATIVE) 07/26/20 17:10 Urine Urobilinogen 1+ (NORMAL) 07/26/20 17:10 Ur Leukocyte Esterase Negative (NEGATIVE) 07/26/20 17:10 SARS CoV-2 RNA Rapid AIDAN Negative (NEGATIVE) 07/22/20 22:36 Tissue Pathology To follow 07/23/20 11:40 Blood Type A POSITIVE 07/26/20 18:04 Antibody Screen Negative 07/26/20 09:22 Crossmatch See Detail 07/26/20 09:22 Tx React Prelim Eval No evidence of htr 07/26/20 18:04 Tx React Symptoms Fever,chills, 07/26/20 18:04 Reaction Path Interpret No evidence of htr 07/26/20 18:[address]graham chávez 07/26/20 18:04 Blood Bank Comment Performed by P2 07/26/20 18:04 XRAY XRAY Interpreted by: Radiologist X-ray Results: CXR: 1. Bilateral interstitial prominence and airspace opacities. Findings may represent atypical infection, including viral etiologies. Femur: Unremarkable exam. CT Chest: Emphysematous changes throughout the lungs with diffuse bilateral interstitial and ground-glass infiltrates unchanged from previous 07/02/2020. Opioid <Jim Acevedo - Last Filed: 08/09/20 09:50> Opioid Risk Tool Age (Spike box if 16-45): No Total: 0 Total Score Risk Category: Low Risk Copyright: [facility] predicting aberrant behaviors <Luna Branham - Last Filed: 07/23/20 01:16> Opioid Risk Tool Total: 0 Total Score Risk Category: Low Risk <Jim Acevedo - Last Filed: 08/09/20 09:50> Diagnosis Discharge Problem: Hypoxemia, Multifocal pneumonia, COPD exacerbation Dyspnea Qualifiers: Dyspnea type: shortness of breath Qualified Code(s): R06.02 - Shortness of breath Ulcer of right leg Qualifiers: Non-pressure ulcer stage: unspecified non-pressure ulcer stage Qualified Code(s): L97.919 - Non-pressure chronic ulcer of unspecified part of right lower leg with unspecified severity Instructions Forms: Excuse From Work or School Precautions for COVID19 Patient Portal Social Distancing
[2020-07-22 20:27] LABS: ABG ALLEN TEST POS
[2020-07-22 20:54] LABS: BASOPHILS % (AUTO) 0.6 % (0.2-1.0); EOSINOPHILS # (AUTO) 0.3 x10^3/uL (0.0-0.2); EOSINOPHILS % (AUTO) 5.5 % (0.9-2.9); HEMATOCRIT 30.5 % (42.0-54.0); HEMOGLOBIN 10.4 g/dL (13.5-18.0); LYMPHOCYTES # (AUTO) 0.6 X10^3/uL (1.3-2.9); LYMPHOCYTES % (AUTO) 12.4 % (21.0-51.0); MEAN CORPUSCULAR HEMOGLOBIN 34.9 pg (27.0-34.0); MEAN CORPUSCULAR HGB CONC 34.2 g/dL (33.0-35.0); MEAN CORPUSCULAR VOLUME 101.9 fL (80.0-100.0); MEAN PLATELET VOLUME 8.5 fL (7.4-11.0); MONOCYTES # (AUTO) 0.2 x10^3/uL (0.3-0.8); MONOCYTES % (AUTO) 3.5 % (0.0-13.0); NEUTROPHILS # (AUTO) 3.9 x10^3/uL (2.2-4.8); PLATELET COUNT 74 X10^3/uL (150.0-450.0); RED BLOOD COUNT 2.99 X10^6/uL (4.7-6.0); RED CELL DISTRIBUTION WIDTH 19.8 % (11.6-16.5); WHITE BLOOD COUNT 4.9 X10^3/uL (3.6-10.0)
--- NOTE | 2020-07-22 21:14 | RAD ---
CHEST, 1 VIEWHISTORY: PT BEING SOB AND CHRONIC BACK PAINStudy: Single view of the chest.Comparison:NoneFindings:The cardiomediastinal silhouette is normal. Bilateral interstitial prominence patchy airspace opacities. No effusions. Osseous structures demonstrate no acute abnormality.IMPRESSION:1. Bilateral interstitial prominence and airspace opacities. Findings may represent atypical infection, including viral etiologies.Electronically signed by: MARU SON (Jul 22, 2020 21:11:24)
[2020-07-22 21:17] LABS: ALANINE AMINOTRANSFERASE 45 Units/L (12-78); ALBUMIN 2.4 g/dL (3.4-5.0); ALKALINE PHOSPHATASE 69 Units/L (46-116); ASPARTATE AMINO TRANSFERASE 37 Units/L (15-37); BLOOD UREA NITROGEN 10 mg/dL (7-18); CALCIUM 8.8 mg/dL (8.5-10.1); CARBON DIOXIDE 31.5 mmol/L (21-32); CHLORIDE 98 mmol/L (98-107); COR CA(FOR HYPOALB) 10.1 mg/dL (8.5-10.1); CREATININE 0.66 mg/dL (0.70-1.30); TOTAL PROTEIN 5.9 g/dL (6.4-8.2); TROPONIN I 0.05 ng/mL (0-1.5); eGFR NON BLACK RACES > 60 (>60)
[2020-07-22 21:32] LABS: SODIUM 136 mmol/L (136-145)
--- NOTE | 2020-07-22 22:22 | RAD ---
HISTORYULCERATIONSTUDYFEMUR, RIGHTCOMPARISONNone availableTECHNIQUERight femoral radiographs, 2 views, AP and lateral projections, 4 imagesFINDINGSNo fracture or dislocations.Normal joint spaces.No significant knee joint effusion.Soft tissues are unremarkable.IMPRESSIONUnremarkable exam.Electronically signed by: Joseph Lazo (Jul 22, 2020 22:20:31)
[2020-07-23] MEDS ORDERED: NORCO 10/325 TAB PO ONE (00:01)
[2020-07-23] MEDS ORDERED: NORCO 10/325 TAB ONE (00:04)
--- NOTE | 2020-07-23 00:16 | CT ---
HISTORYPT BEING SOB AND CHRONIC BACK PAINSTUDYCHEST WITH CONCOMPARISONChest radiograph 07/22/2020, CT chest 07/02/2020TECHNIQUEMultiple axial images of the chest were obtained from the thoracic inlet to the upper abdomen after the administration of IV contrast. Dose reduction techniques including Automated Exposure Control (AEC) and adjustment of mA and kV were utilized.FINDINGSThe mediastinum does not demonstrate significant pathological lymphadenopathy. There is no paracardial effusion observed. The thoracic aorta is normal in its contour without evidence for aneurysmal dilatation. The central pulmonary arterial system does not demonstrate central filling defects to suggest pulmonary emboli.Evaluation of the lung parenchyma demonstrates emphysematous changes throughout the lungs. Diffuse bilateral interstitial and ground-glass infiltrates unchanged from prior study. Focal areas of bronchiectasis and intralobar septal thickening noted. No pneumothorax.. No pulmonary nodule or mass can be identified. The bony thorax is unremarkable in its appearance . The visualized portions of the upper abdomen are grossly unremarkable .IMPRESSIONEmphysematous changes throughout the lungs with diffuse bilateral interstitial and ground-glass infiltrates unchanged from previous 07/02/2020.Electronically signed by: Oneil Maddox (Jul 23, 2020 00:13:18)
[2020-07-23] MEDS ORDERED: NORCO 10/325 TAB PO PRN (01:03)
[2020-07-23] MEDS ORDERED: PHARMACY CONSULT - IVERMECTIN XX SCH (02:00)
[2020-07-23] MEDS ORDERED: NS 1000 ML 1,000 ML ONE (02:19)
[2020-07-23] MEDS ORDERED: ZOFRAN INJ 4 MG VIAL ONE (02:19)
[2020-07-23] MEDS ORDERED: NS 100 ML IV 100 ML IV ONE (02:20)
[2020-07-23] MEDS ORDERED: ASCORBIC ACID INJ MULTI-DOSE VIAL IV ONE (02:20)
[2020-07-23] MEDS: ZOFRAN INJ 4 MG VIAL IVP PRN ×2 (02:38→09:25)
[2020-07-23] MEDS: NS 1000 ML 1,000 ML IV SCH (02:38)
[2020-07-23] MEDS ORDERED: ASCORBIC ACID INJ MULTI-DOSE VIAL 1,500 MG in NS 100 ML IV 100 ML IV SCH (03:00)
[2020-07-23 03:21] VITALS: BMI 22.4
[2020-07-23] MEDS ORDERED: DUONEB 0.5 MG/3 MG (3 mL) NEB SCH (05:00)
[2020-07-23 05:14] LABS: BASOPHILS % (AUTO) 0.6 % (0.2-1.0); EOSINOPHILS # (AUTO) 0.2 x10^3/uL (0.0-0.2); EOSINOPHILS % (AUTO) 5.9 % (0.9-2.9); HEMOGLOBIN 9.6 g/dL (13.5-18.0); LYMPHOCYTES # (AUTO) 0.4 X10^3/uL (1.3-2.9); LYMPHOCYTES % (AUTO) 11.6 % (21.0-51.0); MEAN CORPUSCULAR HEMOGLOBIN 33.8 pg (27.0-34.0); MEAN CORPUSCULAR HGB CONC 33.1 g/dL (33.0-35.0); MEAN CORPUSCULAR VOLUME 102.3 fL (80.0-100.0); MEAN PLATELET VOLUME 8.8 fL (7.4-11.0); MONOCYTES # (AUTO) 0.1 x10^3/uL (0.3-0.8); MONOCYTES % (AUTO) 3.6 % (0.0-13.0); NEUTROPHILS % (AUTO) 78.3 % (42.0-75.0); PLATELET COUNT 72 X10^3/uL (150.0-450.0); RED BLOOD COUNT 2.83 X10^6/uL (4.7-6.0); WHITE BLOOD COUNT 3.8 X10^3/uL (3.6-10.0)
[2020-07-23 05:30] LABS: ALANINE AMINOTRANSFERASE 39 Units/L (12-78); ALBUMIN 2.2 g/dL (3.4-5.0); ALKALINE PHOSPHATASE 63 Units/L (46-116); ASPARTATE AMINO TRANSFERASE 31 Units/L (15-37); BLOOD UREA NITROGEN 9 mg/dL (7-18); CALCIUM 8.7 mg/dL (8.5-10.1); CARBON DIOXIDE 30.9 mmol/L (21-32); CHLORIDE 100 mmol/L (98-107); COR CA(FOR HYPOALB) 10.1 mg/dL (8.5-10.1); CREATININE 0.57 mg/dL (0.70-1.30); SODIUM 137 mmol/L (136-145); TOTAL PROTEIN 5.4 g/dL (6.4-8.2); eGFR NON BLACK RACES > 60 (>60)
[2020-07-23] MEDS ORDERED: IVERMECTIN PO SCH (06:00)
[2020-07-23] MEDS ORDERED: DECADRON TAB PO SCH (06:00)
[2020-07-23] MEDS: BROVANA IN SCH ×2 (08:52→20:10)
[2020-07-23] MEDS: DUONEB 0.5 MG/3 MG (3 mL) NEB SCH ×4 (08:52→20:15)
[2020-07-23] MEDS: PULMICORT NEB TX 0.5 MG NEB SCH ×2 (08:52→20:15)
[2020-07-23] MEDS ORDERED: PEPCID TAB 40 MG PO SCH (09:00)
[2020-07-23] MEDS ORDERED: VITAMIN D (1.25MG) PO SCH (09:00)
[2020-07-23] MEDS ORDERED: PULMICORT NEB TX 0.5 MG NEB SCH (09:00)
[2020-07-23] MEDS ORDERED: LOVENOX INJ 30 MG SYR SC SCH (09:00)
[2020-07-23] MEDS ORDERED: VIBRAMYCIN PO SCH (09:00)
[2020-07-23 09:17] LABS: IRON 20 ug/dL (50-175)
[2020-07-23] MEDS: ZINC SULFATE PO SCH ×2 (09:45→21:17)
[2020-07-23] MEDS: NORCO 10/325 TAB PO SCH ×3 (10:04→21:18)
[2020-07-23] MEDS ORDERED: LR 1000 ML IV 1,000 ML IV ONE (10:31)
[2020-07-23] MEDS ORDERED: CLEOCIN 600 MG IV PREMIX 600 MG/50 ML BAG IV ONE (11:01)
[2020-07-23] MEDS ORDERED: POLYMYXIN B SULFATE ONE (11:19)
[2020-07-23] MEDS ORDERED: BETADINE SOLN ONE (11:19)
[2020-07-23] MEDS ORDERED: XYLOCAINE 1 % (PLAIN) ONE (11:21)
[2020-07-23] MEDS ORDERED: DIPRIVAN VIAL ONE (11:26)
[2020-07-23] MEDS ORDERED: VERSED ONE (11:26)
[2020-07-23] MEDS: LINZESS PO SCH ×2 (12:00→21:17)
[2020-07-23] MEDS: CRESTOR TAB 10 MG PO SCH (12:08)
[2020-07-23] MEDS: LIORESAL PO SCH ×2 (12:09→21:19)
[2020-07-23] MEDS: ELIQUIS PO SCH ×2 (12:09→21:17)
[2020-07-23] MEDS: COLACE CAP 100 MG PO SCH ×2 (12:09→21:17)
[2020-07-23] MEDS: NEURONTIN CAP 100 MG PO SCH ×3 (12:09→21:17)
[2020-07-23] MEDS: CORDARONE TAB 200 MG PO SCH (12:10)
[2020-07-23] MEDS: PLAVIX PO SCH (12:12)
[2020-07-23] MEDS: THIAMINE HCL INJ IVP SCH ×2 (12:13→21:19)
[2020-07-23] MEDS: CLEOCIN 300 MG IV PREMIX 300 MG/50 ML BAG IV SCH ×3 (12:52→21:19)
--- NOTE | 2020-07-23 15:09 | RAD ---
HISTORYRULE OUT FECAL RETENTIONSTUDYACUTE ABDOMEN [id number]/2021FINDINGSThe cardiomediastinal silhouette is stable. Similar post sternotomy changes. Similar bilateral airspace opacities. The bony thorax appears intact.Evaluation of the abdomen demonstrates a nonobstructive bowel gas pattern. Moderate amount of stool in the ascending colon. No evidence of pneumoperitoneum. No pathologic soft tissue calcification. The bony structures of the abdomen are intact. Residual contrast in the bladder.IMPRESSION1. Similar bilateral airspace opacities.2. No acute abdominal process.Electronically signed by: MANOJ BURKS (Jul 23, 2020 14:58:03)
[2020-07-23] MEDS ORDERED: NS IRRIGATION* 1,000 ML ONE (16:13)
[2020-07-23] MEDS ORDERED: CITROMA PO ONE (17:02)
[2020-07-23] MEDS: ATIVAN TAB 1 MG PO SCH (21:18)
[2020-07-23] MEDS: MELATONIN PO SCH (21:18)
[2020-07-23] MEDS: CELEXA PO SCH (21:18)
[2020-07-24] MEDS: NORCO 10/325 TAB PO SCH ×4 (03:41→21:13)
[2020-07-24] MEDS: NS 1000 ML 1,000 ML IV SCH ×2 (03:42→20:22)
[2020-07-24] MEDS: CLEOCIN 300 MG IV PREMIX 300 MG/50 ML BAG IV SCH ×3 (05:12→21:12)
[2020-07-24] MEDS: NEURONTIN CAP 100 MG PO SCH ×3 (05:12→21:12)
[2020-07-24] MEDS: ZOFRAN INJ 4 MG VIAL IVP PRN (06:44)
[2020-07-24] MEDS: BROVANA IN SCH ×2 (08:45→21:43)
[2020-07-24] MEDS: DUONEB 0.5 MG/3 MG (3 mL) NEB SCH ×4 (08:50→21:43)
[2020-07-24] MEDS: PULMICORT NEB TX 0.5 MG NEB SCH ×2 (08:50→21:43)
[2020-07-24] MEDS: PLAVIX PO SCH (09:38)
[2020-07-24] MEDS: CRESTOR TAB 10 MG PO SCH (09:39)
[2020-07-24] MEDS: LIORESAL PO SCH ×2 (09:39→20:20)
[2020-07-24] MEDS: LINZESS PO SCH ×2 (09:39→20:20)
[2020-07-24] MEDS: ELIQUIS PO SCH ×2 (09:40→20:20)
[2020-07-24] MEDS: COLACE CAP 100 MG PO SCH ×2 (09:40→20:20)
[2020-07-24] MEDS: ZINC SULFATE PO SCH ×2 (09:40→20:21)
[2020-07-24] MEDS: THIAMINE HCL INJ IVP SCH ×2 (09:40→20:21)
[2020-07-24] MEDS: ATIVAN TAB 1 MG PO SCH ×2 (09:40→20:20)
[2020-07-24] MEDS: CORDARONE TAB 200 MG PO SCH (09:41)
[2020-07-24 09:59] LABS: BASOPHILS % (AUTO) 0.8 % (0.2-1.0); EOSINOPHILS % (AUTO) 0.2 % (0.9-2.9); HEMATOCRIT 27.3 % (42.0-54.0); HEMOGLOBIN 9.3 g/dL (13.5-18.0); LYMPHOCYTES # (AUTO) 0.6 X10^3/uL (1.3-2.9); LYMPHOCYTES % (AUTO) 14.8 % (21.0-51.0); MEAN CORPUSCULAR HEMOGLOBIN 34.7 pg (27.0-34.0); MEAN CORPUSCULAR VOLUME 102.2 fL (80.0-100.0); MONOCYTES # (AUTO) 0.1 x10^3/uL (0.3-0.8); MONOCYTES % (AUTO) 3.8 % (0.0-13.0); NEUTROPHILS # (AUTO) 3.1 x10^3/uL (2.2-4.8); NEUTROPHILS % (AUTO) 80.4 % (42.0-75.0); PLATELET COUNT 85 X10^3/uL (150.0-450.0); RED BLOOD COUNT 2.67 X10^6/uL (4.7-6.0); RED CELL DISTRIBUTION WIDTH 19.8 % (11.6-16.5); WHITE BLOOD COUNT 3.8 X10^3/uL (3.6-10.0)
[2020-07-24 10:12] LABS: ALANINE AMINOTRANSFERASE 37 Units/L (12-78); ALBUMIN 2.2 g/dL (3.4-5.0); ALKALINE PHOSPHATASE 65 Units/L (46-116); ASPARTATE AMINO TRANSFERASE 21 Units/L (15-37); BLOOD UREA NITROGEN 13 mg/dL (7-18); CALCIUM 8.4 mg/dL (8.5-10.1); CARBON DIOXIDE 30.9 mmol/L (21-32); CHLORIDE 101 mmol/L (98-107); COR CA(FOR HYPOALB) 9.8 mg/dL (8.5-10.1); COR NA(FOR HYPERGLY) 138 mmol/L (136-145); CREATININE 0.71 mg/dL (0.70-1.30); SODIUM 137 mmol/L (136-145); TOTAL PROTEIN 5.7 g/dL (6.4-8.2); eGFR NON BLACK RACES > 60 (>60)
--- NOTE | 2020-07-24 11:26 | PCM.PROG ---
Progress Note Progress Note for Day of Date of Exam: 07/24/20 Subjective Subjective: Pt is a 69 year old male admitted for hypoxia secondary to resolving COVID-19 pneumonia. This morning he is resting comfortably in bed. Respiratory present and is educating on oxygen concentrator that patient is currently on from home. Pt was having abdominal pain and XR abdominal series was ordered that revealed no acute abdominal process and moderate amount of stool. Will start on colace and Linzess( states uses at home). Labs: Wbc 3.8, Hgb 9.3, Platelet 85, Na 137, K 4.2, Creatinine 0.71, Glucose 133. Pt does have wound on right leg, and is currently on Cleocin for this. Will consult surgery for wound care. Otherwise, continue current treatment plan and follow up labs/imaging in the morning. Past Medical Family Social History Past Med/Fam/Surg Hx: No changes since H&P Allergies: Allergies No Known Drug Allergies Allergy (Verified 06/26/20 21:29) Review of Systems ROS: No change since H&P Vital Signs and I&O's Vital Signs: Temperature 97.5 F Pulse Rate [Left Brachial] 77 Pulse Rate 97 Respiratory Rate 18 Blood Pressure [Left Arm] 107/67 Blood Pressure 101/56 O2 Sat by Pulse Oximetry 92 Intake and Output: Intake & Output 07/21/20 07/22/20 07/23/20 07/24/20 23:59 23:59 23:59 23:59 Intake Total 2201 / 2201 381 / 381 Output Total 1149 / 1149 Balance 1052 / 1052 381 / 381 Physical Exam Oriented: Normal Eyes: Normal Ear: Normal Nose: Normal Respiratory: Diminished Cardiovascular: Normal : Normal Auscultation: Bowel Sounds: Normal Tenderness: Normal Skin: Normal Musculoskeletal: Normal Psychiatric: Normal Mood Description: Calm Speech Pattern: Clear and Appropriate Laboratory and Diagnostics Result Diagrams: 07/24/20 09:44 07/24/20 09:44 Labs: 07/23/20 11:40 Thigh - Right Gram Stain - Final 07/23/20 11:40 Thigh - Right Wound Culture - Preliminary 07/23/20 02:00 Thigh - Right Gram Stain - Final 07/23/20 02:00 Thigh - Right Wound Culture - Preliminary Laboratory WBC 3.8 X10^3/uL (3.6-10.0) 07/24/20 09:44 RBC 2.67 X10^6/uL (4.7-6.0) L 07/24/20 09:44 Hgb 9.3 g/dL (13.5-18.0) L 07/24/20 09:44 Hct 27.3 % (42.0-54.0) L 07/24/20 09:44 MCV 102.2 fL (80.0-100.0) H 07/24/20 09:44 MCH 34.7 pg (27.0-34.0) H 07/24/20 09:44 MCHC 34.0 g/dL (33.0-35.0) 07/24/20 09:44 RDW 19.8 % (11.6-16.5) H 07/24/20 09:44 Plt Count 85 X10^3/uL (150.0-450.0) L 07/24/20 09:44 MPV 9.0 fL (7.4-11.0) 07/24/20 09:44 Neut % (Auto) 80.4 % (42.0-75.0) H 07/24/20 09:44 Lymph % (Auto) 14.8 % (21.0-51.0) L 07/24/20 09:44 [place] % (Auto) 3.8 % (0.0-13.0) 07/24/20 09:44 Eos % (Auto) 0.2 % (0.9-2.9) L 07/24/20 09:44 Baso % (Auto) 0.8 % (0.2-1.0) 07/24/20 09:44 Neut # (Auto) 3.1 x10^3/uL (2.2-4.8) 07/24/20 09:44 Lymph # (Auto) 0.6 X10^3/uL (1.3-2.9) L 07/24/20 09:44 [place] # (Auto) 0.1 x10^3/uL (0.3-0.8) L 07/24/20 09:44 Eos # (Auto) 0.0 x10^3/uL (0.0-0.2) 07/24/20 09:44 Baso # (Auto) 0.0 X10^3/uL (0.0-0.1) 07/24/20 09:44 Absolute Nucleated RBC 0.3 /100WBC 07/24/20 09:44 PT 13.9 SECONDS (11.8-14.3) 07/22/20 20:37 INR Target Range - 07/22/20 20:37 INR 1.10 (0.8-1.3) 07/22/20 20:37 Sample Site Lr 07/22/20 19:45 ABG pH 7.450 (7.35-7.45) 07/22/20 19:45 ABG pCO2 46.0 mmHg (35.0-45.0) H 07/22/20 19:45 ABG pO2 61.0 mmHg (80.0-100.0) L 07/22/20 19:45 ABG HCO3 32.0 mmol/L (22-26) H* 07/22/20 19:45 ABG O2 Saturation 92.0 % (90-100) 07/22/20 19:45 ABG Base Excess 7.0 mmol/L (-2.0-2.0) H 07/22/20 19:45 Mauro Test Pos 07/22/20 19:45 A-a Gradient 167.0 mmHg 07/22/20 19:45 FiO2 40.0 07/22/20 19:45 Blood Gas Comments Mere well sw 07/22/20 19:45 Sodium 137 mmol/L (136-145) 07/24/20 09:44 Corrected Sodium 138 mmol/L (136-145) 07/24/20 09:44 Potassium 4.2 mmol/L (3.5-5.1) 07/24/20 09:44 Chloride 101 mmol/L (98-107) 07/24/20 09:44 Carbon Dioxide 30.9 mmol/L (21-32) 07/24/20 09:44 BUN 13 mg/dL (7-18) 07/24/20 09:44 Creatinine 0.71 mg/dL (0.70-1.30) 07/24/20 09:44 Est GFR (MDRD) Af Amer > 60 (>60) 07/24/20 09:44 Est GFR (MDRD) Non-Af > 60 (>60) 07/24/20 09:44 Glucose 133 mg/dL (65-99) H 07/24/20 09:44 Calcium 8.4 mg/dL (8.5-10.1) L 07/24/20 09:44 Corrected Calcium 9.8 mg/dL (8.5-10.1) 07/24/20 09:44 Iron 20 ug/dL (50-175) L 07/23/20 04:45 Transferrin 158 mg/dL (202-364) L 07/23/20 04:45 Ferritin 470 ng/mL (26-388) H 07/23/20 04:45 Total Bilirubin 0.40 mg/dL (0.2-1.0) 07/24/20 09:44 AST 21 Units/L (15-37) 07/24/20 09:44 ALT 37 Units/L (12-78) 07/24/20 09:44 Alkaline Phosphatase 65 Units/L (46-116) 07/24/20 09:44 Troponin I 0.05 ng/mL (0-1.5) 07/22/20 20:37 B-Natriuretic Peptide 286 pg/mL (0-79) H 07/22/20 20:37 Total Protein 5.7 g/dL (6.4-8.2) L 07/24/20 09:44 Albumin 2.2 g/dL (3.4-5.0) L 07/24/20 09:44 Globulin 3.5 g/dL (2.5-4.5) 07/24/20 09:44 Albumin/Globulin Ratio 0.6 Ratio (1.1-2.1) L 07/24/20 09:44 Vitamin B12 638 pg/mL (193-986) 07/23/20 04:45 Folate > 20.0 ng/mL (>8.6) 07/23/20 04:45 SARS CoV-2 RNA Rapid AIDAN Negative (NEGATIVE) 07/22/20 22:36 Tissue Pathology To follow 07/23/20 11:40 Plan (1) Hypoxemia: Status: Acute (2) Ulcer of right leg: Status: Acute Qualifiers: Non-pressure ulcer stage: unspecified non-pressure ulcer stage Qualified Code(s): L97.919 - Non-pressure chronic ulcer of unspecified part of right lower leg with unspecified severity
[2020-07-24] MEDS: CELEXA PO SCH (20:20)
[2020-07-24] MEDS: MELATONIN PO SCH (21:12)
[2020-07-25] MEDS: NS 1000 ML 1,000 ML IV SCH (03:21)
[2020-07-25] MEDS: NORCO 10/325 TAB PO SCH ×4 (03:25→21:31)
[2020-07-25] MEDS: CLEOCIN 300 MG IV PREMIX 300 MG/50 ML BAG IV SCH ×3 (05:04→21:29)
[2020-07-25] MEDS: NEURONTIN CAP 100 MG PO SCH ×3 (05:04→21:29)
[2020-07-25 06:39] LABS: BASOPHILS % (AUTO) 0.8 % (0.2-1.0); EOSINOPHILS # (AUTO) 0.3 x10^3/uL (0.0-0.2); EOSINOPHILS % (AUTO) 8.7 % (0.9-2.9); HEMATOCRIT 25.4 % (42.0-54.0); HEMOGLOBIN 8.3 g/dL (13.5-18.0); LYMPHOCYTES # (AUTO) 0.6 X10^3/uL (1.3-2.9); LYMPHOCYTES % (AUTO) 19.4 % (21.0-51.0); MEAN CORPUSCULAR HEMOGLOBIN 33.6 pg (27.0-34.0); MEAN CORPUSCULAR HGB CONC 32.6 g/dL (33.0-35.0); MEAN PLATELET VOLUME 9.3 fL (7.4-11.0); MONOCYTES # (AUTO) 0.2 x10^3/uL (0.3-0.8); MONOCYTES % (AUTO) 5.4 % (0.0-13.0); NEUTROPHILS # (AUTO) 1.9 x10^3/uL (2.2-4.8); NEUTROPHILS % (AUTO) 65.7 % (42.0-75.0); PLATELET COUNT 98 X10^3/uL (150.0-450.0); RED BLOOD COUNT 2.46 X10^6/uL (4.7-6.0); RED CELL DISTRIBUTION WIDTH 20.5 % (11.6-16.5); WHITE BLOOD COUNT 2.9 X10^3/uL (3.6-10.0)
[2020-07-25 06:54] LABS: ALANINE AMINOTRANSFERASE 33 Units/L (12-78); ALBUMIN 2.1 g/dL (3.4-5.0); ALKALINE PHOSPHATASE 57 Units/L (46-116); ASPARTATE AMINO TRANSFERASE 20 Units/L (15-37); BLOOD UREA NITROGEN 11 mg/dL (7-18); CALCIUM 8.1 mg/dL (8.5-10.1); CARBON DIOXIDE 29.8 mmol/L (21-32); CHLORIDE 105 mmol/L (98-107); COR CA(FOR HYPOALB) 9.6 mg/dL (8.5-10.1); CREATININE 0.64 mg/dL (0.70-1.30); SODIUM 140 mmol/L (136-145); TOTAL PROTEIN 5.1 g/dL (6.4-8.2); eGFR NON BLACK RACES > 60 (>60)
[2020-07-25 07:06] LABS: ANISOCYTOSIS 1+; PLATELET MORPHOLOGY COMMENT NORMAL (NORMAL)
[2020-07-25] MEDS: ZINC SULFATE PO SCH ×2 (08:41→21:29)
[2020-07-25] MEDS: ELIQUIS PO SCH ×2 (08:41→21:29)
[2020-07-25] MEDS: ATIVAN TAB 1 MG PO SCH ×2 (08:41→21:30)
[2020-07-25] MEDS: LINZESS PO SCH ×2 (08:41→21:29)
[2020-07-25] MEDS: LIORESAL PO SCH ×2 (08:42→21:30)
[2020-07-25] MEDS: PLAVIX PO SCH (08:42)
[2020-07-25] MEDS: CRESTOR TAB 10 MG PO SCH (08:42)
[2020-07-25] MEDS: THIAMINE HCL INJ IVP SCH ×2 (08:43→21:30)
[2020-07-25] MEDS: CORDARONE TAB 200 MG PO SCH (08:43)
[2020-07-25] MEDS: COLACE CAP 100 MG PO SCH ×2 (08:43→21:30)
[2020-07-25] MEDS ORDERED: VITAMIN A PO SCH (09:00)
[2020-07-25] MEDS: PULMICORT NEB TX 0.5 MG NEB SCH ×2 (09:15→20:37)
[2020-07-25] MEDS: DUONEB 0.5 MG/3 MG (3 mL) NEB SCH ×4 (09:15→20:37)
--- NOTE | 2020-07-25 10:52 | PCM.PROG ---
Progress Note Progress Note for Day of Date of Exam: 07/25/20 Subjective Subjective: Pt is a 69 year old male admitted for hypoxia secondary to resolving COVID-19 pneumonia. He is resting comfortably in bed and is on supplemental oxygen. No acute events overnight. Labs: Wbc 2.9, Hgb 8.3, Platelet 98, Na 140, K 3.7, Creatinine 0.64, Glucose 79. Pt has had debridement of necrotic infected ulcer right anterior thigh. Continue clindamycin and wound care. Wound culture pending. Continue current treatment plan and follow up labs in the morning. Past Medical Family Social History Past Med/Fam/Surg Hx: No changes since H&P Allergies: Allergies No Known Drug Allergies Allergy (Verified 06/26/20 21:29) Review of Systems ROS: No change since H&P Vital Signs and I&O's Vital Signs: Temperature 97.1 F Pulse Rate [Left Brachial] 70 Pulse Rate 80 Respiratory Rate 16 Blood Pressure [Left Arm] 107/59 Blood Pressure 101/56 O2 Sat by Pulse Oximetry 97 Intake and Output: Intake & Output 07/22/20 07/23/20 07/24/20 07/25/20 23:59 23:59 23:59 23:59 Intake Total 2201 / 2201 2616 / 2616 236 / 236 Output Total 1149 / 1149 750 / 750 Balance 1052 / 1052 1866 / 1866 236 / 236 Physical Exam Oriented: Normal Eyes: Normal Ear: Normal Nose: Normal Respiratory: Diminished Cardiovascular: Normal : Normal Auscultation: Bowel Sounds: Normal Tenderness: Normal Skin: Normal Musculoskeletal: Normal Psychiatric: Normal Mood Description: Calm Speech Pattern: Clear and Appropriate Laboratory and Diagnostics Result Diagrams: 07/25/20 05:30 07/25/20 05:30 Labs: 07/23/20 02:00 Thigh - Right Gram Stain - Final 07/23/20 02:00 Thigh - Right Wound Culture - Preliminary 07/23/20 11:40 Thigh - Right Gram Stain - Final 07/23/20 11:40 Thigh - Right Wound Culture - Preliminary Laboratory WBC 2.9 X10^3/uL (3.6-10.0) L 07/25/20 05:30 RBC 2.46 X10^6/uL (4.7-6.0) L 07/25/20 05:30 Hgb 8.3 g/dL (13.5-18.0) L 07/25/20 05:30 Hct 25.4 % (42.0-54.0) L 07/25/20 05:30 MCV 103.0 fL (80.0-100.0) H 07/25/20 05:30 MCH 33.6 pg (27.0-34.0) 07/25/20 05:30 MCHC 32.6 g/dL (33.0-35.0) L 07/25/20 05:30 RDW 20.5 % (11.6-16.5) H 07/25/20 05:30 Plt Count 98 X10^3/uL (150.0-450.0) L 07/25/20 05:30 Plt Count Comment Decreased (ADEQUATE) 07/25/20 05:30 MPV 9.3 fL (7.4-11.0) 07/25/20 05:30 Neut % (Auto) 65.7 % (42.0-75.0) 07/25/20 05:30 Lymph % (Auto) 19.4 % (21.0-51.0) L 07/25/20 05:30 [place] % (Auto) 5.4 % (0.0-13.0) 07/25/20 05:30 Eos % (Auto) 8.7 % (0.9-2.9) H 07/25/20 05:30 Baso % (Auto) 0.8 % (0.2-1.0) 07/25/20 05:30 Neut # (Auto) 1.9 x10^3/uL (2.2-4.8) L 07/25/20 05:30 Lymph # (Auto) 0.6 X10^3/uL (1.3-2.9) L 07/25/20 05:30 Sebastian # (Auto) 0.2 x10^3/uL (0.3-0.8) L 07/25/20 05:30 Eos # (Auto) 0.3 x10^3/uL (0.0-0.2) H 07/25/20 05:30 Baso # (Auto) 0.0 X10^3/uL (0.0-0.1) 07/25/20 05:30 Absolute Nucleated RBC 0.2 /100WBC 07/25/20 05:30 Plt Morphology Comment Normal (NORMAL) 07/25/20 05:30 RBC Morphology Abnormal (NORMAL) 07/25/20 05:30 Anisocytosis 1+ A 07/25/20 05:30 Macrocytosis Slight A 07/25/20 05:30 PT 13.9 SECONDS (11.8-14.3) 07/22/20 20:37 INR Target Range - 07/22/20 20:37 INR 1.10 (0.8-1.3) 07/22/20 20:37 Sample Site Lr 07/22/20 19:45 ABG pH 7.450 (7.35-7.45) 07/22/20 19:45 ABG pCO2 46.0 mmHg (35.0-45.0) H 07/22/20 19:45 ABG pO2 61.0 mmHg (80.0-100.0) L 07/22/20 19:45 ABG HCO3 32.0 mmol/L (22-26) H* 07/22/20 19:45 ABG O2 Saturation 92.0 % (90-100) 07/22/20 19:45 ABG Base Excess 7.0 mmol/L (-2.0-2.0) H 07/22/20 19:45 Mauro Test Pos 07/22/20 19:45 A-a Gradient 167.0 mmHg 07/22/20 19:45 FiO2 40.0 07/22/20 19:45 Blood Gas Comments Mere well sw 07/22/20 19:45 Sodium 140 mmol/L (136-145) 07/25/20 05:30 Corrected Sodium TNP 07/25/20 05:30 Potassium 3.7 mmol/L (3.5-5.1) 07/25/20 05:30 Chloride 105 mmol/L (98-107) 07/25/20 05:30 Carbon Dioxide 29.8 mmol/L (21-32) 07/25/20 05:30 BUN 11 mg/dL (7-18) 07/25/20 05:30 Creatinine 0.64 mg/dL (0.70-1.30) L 07/25/20 05:30 Est GFR (MDRD) Af Amer > 60 (>60) 07/25/20 05:30 Est GFR (MDRD) Non-Af > 60 (>60) 07/25/20 05:30 Glucose 79 mg/dL (65-99) 07/25/20 05:30 Calcium 8.1 mg/dL (8.5-10.1) L 07/25/20 05:30 Corrected Calcium 9.6 mg/dL (8.5-10.1) 07/25/20 05:30 Iron 20 ug/dL (50-175) L 07/23/20 04:45 Transferrin 158 mg/dL (202-364) L 07/23/20 04:45 Ferritin 470 ng/mL (26-388) H 07/23/20 04:45 Total Bilirubin 0.20 mg/dL (0.2-1.0) 07/25/20 05:30 AST 20 Units/L (15-37) 07/25/20 05:30 ALT 33 Units/L (12-78) 07/25/20 05:30 Alkaline Phosphatase 57 Units/L (46-116) 07/25/20 05:30 Troponin I 0.05 ng/mL (0-1.5) 07/22/20 20:37 B-Natriuretic Peptide 286 pg/mL (0-79) H 07/22/20 20:37 Total Protein 5.1 g/dL (6.4-8.2) L 07/25/20 05:30 Albumin 2.1 g/dL (3.4-5.0) L 07/25/20 05:30 Globulin 3.0 g/dL (2.5-4.5) 07/25/20 05:30 Albumin/Globulin Ratio 0.7 Ratio (1.1-2.1) L 07/25/20 05:30 Vitamin B12 638 pg/mL (193-986) 07/23/20 04:45 Folate > 20.0 ng/mL (>8.6) 07/23/20 04:45 SARS CoV-2 RNA Rapid AIDAN Negative (NEGATIVE) 07/22/20 22:36 Tissue Pathology To follow 07/23/20 11:40 Plan (1) Hypoxemia: Status: Acute (2) Ulcer of right leg: Status: Acute Qualifiers: Non-pressure ulcer stage: unspecified non-pressure ulcer stage Qualified Code(s): L97.919 - Non-pressure chronic ulcer of unspecified part of right lower leg with unspecified severity
[2020-07-25] MEDS: BROVANA IN SCH ×2 (14:13→20:48)
[2020-07-25] MEDS: MELATONIN PO SCH (21:29)
[2020-07-25] MEDS: CELEXA PO SCH (21:29)
[2020-07-26] MEDS: NORCO 10/325 TAB PO SCH ×4 (04:43→21:04)
[2020-07-26] MEDS: CLEOCIN 300 MG IV PREMIX 300 MG/50 ML BAG IV SCH ×3 (05:16→21:11)
[2020-07-26] MEDS: NS 1000 ML 1,000 ML IV SCH ×2 (05:16→21:16)
[2020-07-26] MEDS: NEURONTIN CAP 100 MG PO SCH ×3 (05:17→21:04)
[2020-07-26 06:52] LABS: BASOPHILS % (AUTO) 0.5 % (0.2-1.0); EOSINOPHILS # (AUTO) 0.4 x10^3/uL (0.0-0.2); HEMATOCRIT 25.3 % (42.0-54.0); HEMOGLOBIN 8.3 g/dL (13.5-18.0); LYMPHOCYTES # (AUTO) 0.5 X10^3/uL (1.3-2.9); LYMPHOCYTES % (AUTO) 22.9 % (21.0-51.0); MEAN CORPUSCULAR HEMOGLOBIN 33.6 pg (27.0-34.0); MEAN CORPUSCULAR HGB CONC 32.7 g/dL (33.0-35.0); MEAN CORPUSCULAR VOLUME 102.7 fL (80.0-100.0); MEAN PLATELET VOLUME 9.1 fL (7.4-11.0); MONOCYTES # (AUTO) 0.2 x10^3/uL (0.3-0.8); MONOCYTES % (AUTO) 7.3 % (0.0-13.0); NEUTROPHILS # (AUTO) 1.3 x10^3/uL (2.2-4.8); NEUTROPHILS % (AUTO) 54.3 % (42.0-75.0); PLATELET COUNT 127 X10^3/uL (150.0-450.0); RED BLOOD COUNT 2.47 X10^6/uL (4.7-6.0); RED CELL DISTRIBUTION WIDTH 20.2 % (11.6-16.5); WHITE BLOOD COUNT 2.4 X10^3/uL (3.6-10.0)
[2020-07-26 07:04] LABS: ALANINE AMINOTRANSFERASE 31 Units/L (12-78); ALBUMIN 1.9 g/dL (3.4-5.0); ALKALINE PHOSPHATASE 65 Units/L (46-116); ASPARTATE AMINO TRANSFERASE 24 Units/L (15-37); BLOOD UREA NITROGEN 7 mg/dL (7-18); CALCIUM 7.9 mg/dL (8.5-10.1); CARBON DIOXIDE 30.7 mmol/L (21-32); CHLORIDE 104 mmol/L (98-107); COR CA(FOR HYPOALB) 9.6 mg/dL (8.5-10.1); CREATININE 0.53 mg/dL (0.70-1.30); SODIUM 139 mmol/L (136-145); eGFR NON BLACK RACES > 60 (>60)
[2020-07-26 07:31] LABS: PLATELET MORPHOLOGY COMMENT NORMAL (NORMAL)
[2020-07-26 07:32] LABS: ANISOCYTOSIS SLIGHT
[2020-07-26] MEDS ORDERED: PROCRIT or EPOGEN VIAL 10,000 UNITS SC ONE (07:36)
[2020-07-26] MEDS: PULMICORT NEB TX 0.5 MG NEB SCH ×2 (09:00→20:03)
[2020-07-26] MEDS: DUONEB 0.5 MG/3 MG (3 mL) NEB SCH ×4 (09:00→20:03)
[2020-07-26] MEDS: BROVANA IN SCH ×2 (09:10→20:13)
[2020-07-26] MEDS: CORDARONE TAB 200 MG PO SCH (09:11)
[2020-07-26] MEDS: COLACE CAP 100 MG PO SCH ×2 (09:11→21:04)
[2020-07-26] MEDS: PLAVIX PO SCH (09:11)
[2020-07-26] MEDS: ATIVAN TAB 1 MG PO SCH ×2 (09:11→21:04)
[2020-07-26] MEDS: ZINC SULFATE PO SCH ×2 (09:11→21:04)
[2020-07-26] MEDS: LINZESS PO SCH ×2 (09:11→21:52)
[2020-07-26] MEDS: THIAMINE HCL INJ IVP SCH ×2 (09:12→21:08)
[2020-07-26] MEDS: ELIQUIS PO SCH ×2 (09:12→21:04)
[2020-07-26] MEDS: CRESTOR TAB 10 MG PO SCH (09:12)
[2020-07-26] MEDS: LIORESAL PO SCH ×2 (09:12→21:04)
[2020-07-26 10:33] LABS: ABG BASE EXCESS 8.1 mmol/L (-2.0-2.0)
--- NOTE | 2020-07-26 11:18 | DR.PROGNOT ---
Hospital Progress Notes - Progress Note for Day of: Progress Note Date: 07/26/20 - Chief Complaint Chief Complaint: leg ulcer is the same with slow healing . dressing was changed earlier . no cellulitis or necrosis now .. Pt is anemic and has JAMES . - Past Medical Family Social History Past Med/Fam/Surg Hx: No changes since H&P Allergies: Allergies No Known Drug Allergies Allergy (Verified 06/26/20 21:29) - Review Of Systems ROS: No change since H&P - Vital Signs Vital Signs: Temperature 97.6 F Pulse Rate [Left Brachial] 85 Pulse Rate 96 Respiratory Rate 18 Blood Pressure [Left Arm] 101/59 Blood Pressure 101/56 O2 Sat by Pulse Oximetry 93 - Physical Exam Oriented: Normal Eyes: Normal Ear: Normal Nose: Normal Respiratory: Diminished Cardiovascular: Normal : Normal GI:Auscultation: Normal GI: Tenderness: Normal Skin: Normal Musculoskeletal: Normal Psychiatric: Normal Mood Description: Calm Speech Pattern: Clear, Appropriate - Laboratory and Diagnostics Result Diagrams: 07/26/20 05:55 07/26/20 05:55 Labs: 07/23/20 02:00 Thigh - Right Gram Stain - Final 07/23/20 02:00 Thigh - Right Wound Culture - Final 07/23/20 11:40 Thigh - Right Gram Stain - Final 07/23/20 11:40 Thigh - Right Wound Culture - Preliminary Laboratory WBC 2.4 X10^3/uL (3.6-10.0) L 07/26/20 05:55 RBC 2.47 X10^6/uL (4.7-6.0) L 07/26/20 05:55 Hgb 8.3 g/dL (13.5-18.0) L 07/26/20 05:55 Hct 25.3 % (42.0-54.0) L 07/26/20 05:55 MCV 102.7 fL (80.0-100.0) H 07/26/20 05:55 MCH 33.6 pg (27.0-34.0) 07/26/20 05:55 MCHC 32.7 g/dL (33.0-35.0) L 07/26/20 05:55 RDW 20.2 % (11.6-16.5) H 07/26/20 05:55 Plt Count 127 X10^3/uL (150.0-450.0) L 07/26/20 05:55 Plt Count Comment Decreased (ADEQUATE) 07/26/20 05:55 MPV 9.1 fL (7.4-11.0) 07/26/20 05:55 Neut % (Auto) 54.3 % (42.0-75.0) 07/26/20 05:55 Lymph % (Auto) 22.9 % (21.0-51.0) 07/26/20 05:55 [place] % (Auto) 7.3 % (0.0-13.0) 07/26/20 05:55 Eos % (Auto) 15.0 % (0.9-2.9) H 07/26/20 05:55 Baso % (Auto) 0.5 % (0.2-1.0) 07/26/20 05:55 Neut # (Auto) 1.3 x10^3/uL (2.2-4.8) L 07/26/20 05:55 Lymph # (Auto) 0.5 X10^3/uL (1.3-2.9) L 07/26/20 05:55 [place] # (Auto) 0.2 x10^3/uL (0.3-0.8) L 07/26/20 05:55 Eos # (Auto) 0.4 x10^3/uL (0.0-0.2) H 07/26/20 05:55 Baso # (Auto) 0.0 X10^3/uL (0.0-0.1) 07/26/20 05:55 Absolute Nucleated RBC 0.2 /100WBC 07/26/20 05:55 Total Counted 100 07/26/20 05:55 Neutrophils % (Manual) 59 % (39-76) 07/26/20 05:55 Lymphocytes % (Manual) 26 % (13-43) 07/26/20 05:55 Monocytes % (Manual) 5 % (4-9) 07/26/20 05:55 Eosinophils % (Manual) 10 % (0-6) H 07/26/20 05:55 Plt Morphology Comment Normal (NORMAL) 07/26/20 05:55 RBC Morphology Abnormal (NORMAL) 07/26/20 05:55 Anisocytosis Slight A 07/26/20 05:55 Macrocytosis Slight A 07/25/20 05:30 PT 13.9 SECONDS (11.8-14.3) 07/22/20 20:37 INR Target Range - 07/22/20 20:37 INR 1.10 (0.8-1.3) 07/22/20 20:37 Sample Site Lbra 07/26/20 10:30 ABG pH 7.500 (7.35-7.45) H 07/26/20 10:30 ABG pCO2 41.0 mmHg (35.0-45.0) 07/26/20 10:30 ABG pO2 32.0 mmHg (80.0-100.0) L* 07/26/20 10:30 ABG HCO3 32.0 mmol/L (22-26) H* 07/26/20 10:30 ABG O2 Saturation 69.0 % (90-100) L* 07/26/20 10:30 ABG Base Excess 8.1 mmol/L (-2.0-2.0) H 07/26/20 10:30 Mauro Test N/a 07/26/20 10:30 A-a Gradient 66.0 mmHg 07/26/20 10:30 FiO2 21.0 07/26/20 10:30 Blood Gas Comments Pt jaswinder well eb 07/26/20 10:30 Sodium 139 mmol/L (136-145) 07/26/20 05:55 Corrected Sodium TNP 07/26/20 05:55 Potassium 4.1 mmol/L (3.5-5.1) 07/26/20 05:55 Chloride 104 mmol/L (98-107) 07/26/20 05:55 Carbon Dioxide 30.7 mmol/L (21-32) 07/26/20 05:55 BUN 7 mg/dL (7-18) 07/26/20 05:55 Creatinine 0.53 mg/dL (0.70-1.30) L 07/26/20 05:55 Est GFR (MDRD) Af Amer > 60 (>60) 07/26/20 05:55 Est GFR (MDRD) Non-Af > 60 (>60) 07/26/20 05:55 Glucose 82 mg/dL (65-99) 07/26/20 05:55 Calcium 7.9 mg/dL (8.5-10.1) L 07/26/20 05:55 Corrected Calcium 9.6 mg/dL (8.5-10.1) 07/26/20 05:55 Iron 20 ug/dL (50-175) L 07/23/20 04:45 Transferrin 158 mg/dL (202-364) L 07/23/20 04:45 Ferritin 470 ng/mL (26-388) H 07/23/20 04:45 Total Bilirubin 0.30 mg/dL (0.2-1.0) 07/26/20 05:55 AST 24 Units/L (15-37) 07/26/20 05:55 ALT 31 Units/L (12-78) 07/26/20 05:55 Alkaline Phosphatase 65 Units/L (46-116) 07/26/20 05:55 Troponin I 0.05 ng/mL (0-1.5) 07/22/20 20:37 B-Natriuretic Peptide 286 pg/mL (0-79) H 07/22/20 20:37 Total Protein 5.0 g/dL (6.4-8.2) L 07/26/20 05:55 Albumin 1.9 g/dL (3.4-5.0) L 07/26/20 05:55 Globulin 3.1 g/dL (2.5-4.5) 07/26/20 05:55 Albumin/Globulin Ratio 0.6 Ratio (1.1-2.1) L 07/26/20 05:55 Total PSA 1.20 ng/mL (0.13-4.0) 07/26/20 05:55 Vitamin B12 638 pg/mL (193-986) 07/23/20 04:45 Folate > 20.0 ng/mL (>8.6) 07/23/20 04:45 SARS CoV-2 RNA Rapid AIDAN Negative (NEGATIVE) 07/22/20 22:36 Tissue Pathology To follow 07/23/20 11:40 - Assessment and Plan 1: infected skin ulcer Rt thigh . ( s/p excisional debridement . same local care , IV ATB , nutritional support and transfusion .. to follow as OP .. - Problem Patient Problems: Patient Problems Hypoxemia (Acute) R09.02 Multifocal pneumonia (Acute) J18.9 Dyspnea (Acute) R06.00 COPD exacerbation (Acute) J44.1 Ulcer of right leg (Acute) L97.919
[2020-07-26] MEDS ORDERED: NS 250 ML IV 250 ML IV ONE (14:59)
[2020-07-26] MEDS ORDERED: LEVAQUIN PREMIX IV 500 MG 500 MG/100 ML BAG IV SCH (17:00)
--- NOTE | 2020-07-26 17:17 | RAD ---
HISTORYShortness of breathSTUDYCHEST, 1 VIEWCOMPARISONMarch 2020FINDINGSThe trachea is midline. The cardiac silhouette is stable.. The lungs demonstrate persistent bilateral diffuse interstitial and airspace opacities unchanged compared to prior the bony thorax is unremarkable.IMPRESSIONStable interstitial and airspace opacities unchanged from priorElectronically signed by: QUENTIN ROJO (Jul 26, 2020 17:15:25)
[2020-07-26] MEDS: MELATONIN PO SCH (21:04)
[2020-07-26] MEDS: CELEXA PO SCH (21:04)
[2020-07-27] MEDS: NS 1000 ML 1,000 ML IV SCH (02:17)
[2020-07-27] MEDS: NORCO 10/325 TAB PO SCH ×4 (03:25→21:19)
[2020-07-27 04:04] LABS: ABG BASE EXCESS 8.3 mmol/L (-2.0-2.0)
[2020-07-27 04:05] LABS: ABG ALLEN TEST POS; ABG HCO3 32.8 mmol/L (22-26)
[2020-07-27] MEDS: NEURONTIN CAP 100 MG PO SCH ×3 (05:25→21:18)
[2020-07-27] MEDS: CLEOCIN 300 MG IV PREMIX 300 MG/50 ML BAG IV SCH (05:25)
[2020-07-27 06:49] LABS: BASOPHILS % (AUTO) 0.6 % (0.2-1.0); EOSINOPHILS # (AUTO) 0.3 x10^3/uL (0.0-0.2); EOSINOPHILS % (AUTO) 9.5 % (0.9-2.9); HEMATOCRIT 27.1 % (42.0-54.0); HEMOGLOBIN 9.1 g/dL (13.5-18.0); LYMPHOCYTES # (AUTO) 0.6 X10^3/uL (1.3-2.9); LYMPHOCYTES % (AUTO) 19.1 % (21.0-51.0); MEAN CORPUSCULAR HEMOGLOBIN 33.6 pg (27.0-34.0); MEAN CORPUSCULAR HGB CONC 33.7 g/dL (33.0-35.0); MEAN CORPUSCULAR VOLUME 99.8 fL (80.0-100.0); MEAN PLATELET VOLUME 9.2 fL (7.4-11.0); MONOCYTES # (AUTO) 0.2 x10^3/uL (0.3-0.8); MONOCYTES % (AUTO) 5.5 % (0.0-13.0); NEUTROPHILS # (AUTO) 2.1 x10^3/uL (2.2-4.8); NEUTROPHILS % (AUTO) 65.3 % (42.0-75.0); PLATELET COUNT 166 X10^3/uL (150.0-450.0); RED BLOOD COUNT 2.71 X10^6/uL (4.7-6.0); RED CELL DISTRIBUTION WIDTH 19.5 % (11.6-16.5); WHITE BLOOD COUNT 3.2 X10^3/uL (3.6-10.0)
[2020-07-27 07:12] LABS: ALANINE AMINOTRANSFERASE 34 Units/L (12-78); ALKALINE PHOSPHATASE 71 Units/L (46-116); ASPARTATE AMINO TRANSFERASE 28 Units/L (15-37); BLOOD UREA NITROGEN 5 mg/dL (7-18); CALCIUM 7.9 mg/dL (8.5-10.1); CARBON DIOXIDE 28.9 mmol/L (21-32); CHLORIDE 101 mmol/L (98-107); COR CA(FOR HYPOALB) 9.5 mg/dL (8.5-10.1); CREATININE 0.57 mg/dL (0.70-1.30); SODIUM 136 mmol/L (136-145); TOTAL PROTEIN 5.1 g/dL (6.4-8.2); eGFR NON BLACK RACES > 60 (>60)
[2020-07-27] MEDS ORDERED: TYLENOL 500 MG TAB EXTRA STRENGTH PO PRN (07:58)
[2020-07-27 08:14] LABS: APPEARANCE,URINE CLEAR (CLEAR); BILIRUBIN,URINE NEGATIVE (NEGATIVE); BLOOD/HEMOGLOBIN,URINE NEGATIVE (NEGATIVE); COLOR,URINE YELLOW (YELLOW); GLUCOSE, URINE NEGATIVE (NEGATIVE); KETONES,URINE NEGATIVE (NEGATIVE); NITRITES,URINE NEGATIVE (NEGATIVE); PROTEIN,URINE NEGATIVE (NEGATIVE); UROBILINOGEN,URINE 1+ (NORMAL)
[2020-07-27 08:15] LABS: LEUKOCYTE ESTERASE ,URINE NEGATIVE (NEGATIVE)
[2020-07-27] MEDS: DUONEB 0.5 MG/3 MG (3 mL) NEB SCH ×4 (08:26→20:20)
[2020-07-27] MEDS: BROVANA IN SCH ×2 (08:26→20:15)
[2020-07-27] MEDS: PULMICORT NEB TX 0.5 MG NEB SCH ×2 (08:26→20:20)
[2020-07-27] MEDS ORDERED: OFIRMEV IV 1000 MG VIAL 1,000 MG/100 ML VIAL IV ONE (08:36)
[2020-07-27] MEDS: OFIRMEV IV 1000 MG VIAL 1,000 MG/100 ML VIAL IV PRN ×2 (08:37→20:41)
[2020-07-27] MEDS ORDERED: ATIVAN INJ 2 MG VIAL IVP STA (08:44)
[2020-07-27] MEDS ORDERED: ATIVAN INJ 2 MG VIAL ONE (08:46)
[2020-07-27] MEDS ORDERED: LASIX IVP STA (08:52)
[2020-07-27] MEDS ORDERED: CONSULT PHARMACY - GENTAMICIN XX SCH (09:00)
[2020-07-27] MEDS ORDERED: PHARMACY CONSULT - VANCOMYCIN XX SCH (09:00)
[2020-07-27] MEDS ORDERED: VANCOMYCIN IV *PREMIX 1 G/200 ML BAG 1 G/200 ML PIGGYBACK IV SCH (09:00)
[2020-07-27] MEDS ORDERED: CORTEF PO SCH (09:00)
--- NOTE | 2020-07-27 09:05 | RAD ---
HISTORYShortness of breathSTUDYChest AP [id number]/08/2021FINDINGSPatient is status post median sternotomy. The heart is upper limi ts normal in size. Diffuse bilateral interstitial, ground-glass and alveolar infiltrates are unchange d. No pleural effusions are identified. Bony thorax is unremarkable.IMPRESSIONDiffuse bilateral inter stitial, ground-glass, and alveolar infiltrates unchangedElectronically signed by: MANOJ BURKS (Jul 27, 2020 09:04:08)
[2020-07-27] MEDS ORDERED: VANCOMYCIN IV *PREMIX 1 G/200 ML BAG 1 G/200 ML PIGGYBACK IV NR (09:30)
[2020-07-27] MEDS: THIAMINE HCL INJ IVP SCH ×2 (09:35→20:55)
[2020-07-27] MEDS: ATIVAN TAB 1 MG PO SCH ×2 (10:30→21:16)
[2020-07-27] MEDS: CRESTOR TAB 10 MG PO SCH (10:30)
[2020-07-27] MEDS: COLACE CAP 100 MG PO SCH ×2 (10:30→21:17)
[2020-07-27] MEDS: CORDARONE TAB 200 MG PO SCH (10:30)
[2020-07-27] MEDS: LINZESS PO SCH ×2 (10:31→21:17)
[2020-07-27] MEDS: LIORESAL PO SCH ×2 (10:31→21:17)
[2020-07-27] MEDS: ELIQUIS PO SCH ×2 (10:31→21:17)
[2020-07-27] MEDS: ZINC SULFATE PO SCH ×2 (10:36→21:18)
[2020-07-27] MEDS: PLAVIX PO SCH (10:36)
[2020-07-27] MEDS: GENTAMICIN INJ 80 MG in NS 100 ML IV 100 ML IV SCH ×3 (10:53→22:17)
[2020-07-27 11:05] LABS: ABG BASE EXCESS 4.1 mmol/L (-2.0-2.0); ABG HCO3 29.2 mmol/L (22-26)
[2020-07-27] MEDS: VIBRAMYCIN 100 MG in D5W 250 ML IV 250 ML IV SCH ×2 (12:36→23:21)
[2020-07-27] MEDS: SOLU-Cortef INJ IVP SCH ×2 (14:32→21:00)
[2020-07-27] MEDS: ATIVAN INJ 2 MG VIAL IVP PRN (20:47)
[2020-07-27] MEDS: VANCOMYCIN IV *PREMIX 750 mg/150 ML BAG 750 MG/150 ML PIGGYBACK IV SCH (21:06)
[2020-07-27] MEDS: CELEXA PO SCH (21:17)
[2020-07-27] MEDS: MELATONIN PO SCH (21:17)
[2020-07-28] MEDS: NS 1000 ML 1,000 ML IV SCH (03:09)
[2020-07-28] MEDS: NORCO 10/325 TAB PO SCH ×5 (04:18→21:21)
[2020-07-28] MEDS: SOLU-Cortef INJ IVP SCH ×3 (05:12→21:23)
[2020-07-28] MEDS: GENTAMICIN INJ 80 MG in NS 100 ML IV 100 ML IV SCH ×2 (05:12→14:25)
[2020-07-28] MEDS: NEURONTIN CAP 100 MG PO SCH ×3 (05:28→22:03)
[2020-07-28] MEDS ORDERED: PHARMACY COMMENT IV NR ×4 (05:45→20:45)
[2020-07-28 06:28] LABS: BASOPHILS % (AUTO) 0.5 % (0.2-1.0); EOSINOPHILS % (AUTO) 0.3 % (0.9-2.9); HEMATOCRIT 28.3 % (42.0-54.0); HEMOGLOBIN 9.6 g/dL (13.5-18.0); LYMPHOCYTES # (AUTO) 0.8 X10^3/uL (1.3-2.9); MEAN CORPUSCULAR HEMOGLOBIN 33.8 pg (27.0-34.0); MEAN CORPUSCULAR HGB CONC 34.1 g/dL (33.0-35.0); MEAN CORPUSCULAR VOLUME 99.1 fL (80.0-100.0); MEAN PLATELET VOLUME 8.9 fL (7.4-11.0); MONOCYTES # (AUTO) 0.3 x10^3/uL (0.3-0.8); MONOCYTES % (AUTO) 8.3 % (0.0-13.0); NEUTROPHILS # (AUTO) 2.3 x10^3/uL (2.2-4.8); NEUTROPHILS % (AUTO) 67.9 % (42.0-75.0); PLATELET COUNT 215 X10^3/uL (150.0-450.0); RED BLOOD COUNT 2.85 X10^6/uL (4.7-6.0); RED CELL DISTRIBUTION WIDTH 19.4 % (11.6-16.5); WHITE BLOOD COUNT 3.4 X10^3/uL (3.6-10.0)
[2020-07-28 06:41] LABS: ALANINE AMINOTRANSFERASE 31 Units/L (12-78); ALBUMIN 1.9 g/dL (3.4-5.0); ALKALINE PHOSPHATASE 79 Units/L (46-116); ASPARTATE AMINO TRANSFERASE 27 Units/L (15-37); BLOOD UREA NITROGEN 11 mg/dL (7-18); CALCIUM 8.4 mg/dL (8.5-10.1); CARBON DIOXIDE 30.5 mmol/L (21-32); CHLORIDE 105 mmol/L (98-107); COR CA(FOR HYPOALB) 10.1 mg/dL (8.5-10.1); CREATININE 0.46 mg/dL (0.70-1.30); SODIUM 140 mmol/L (136-145); TOTAL PROTEIN 5.3 g/dL (6.4-8.2); eGFR NON BLACK RACES > 60 (>60)
[2020-07-28] MEDS: DUONEB 0.5 MG/3 MG (3 mL) NEB SCH ×3 (08:52→21:42)
[2020-07-28] MEDS: PULMICORT NEB TX 0.5 MG NEB SCH ×2 (08:52→21:42)
[2020-07-28] MEDS: BROVANA IN SCH ×2 (08:52→21:42)
[2020-07-28] MEDS: THIAMINE HCL INJ IVP SCH ×2 (09:29→21:22)
[2020-07-28] MEDS: VANCOMYCIN IV *PREMIX 750 mg/150 ML BAG 750 MG/150 ML PIGGYBACK IV SCH ×2 (09:31→23:35)
[2020-07-28] MEDS: COLACE CAP 100 MG PO SCH ×2 (09:40→22:01)
[2020-07-28] MEDS: ATIVAN TAB 1 MG PO SCH ×2 (09:40→22:01)
[2020-07-28] MEDS: CRESTOR TAB 10 MG PO SCH (09:41)
[2020-07-28] MEDS: CORDARONE TAB 200 MG PO SCH (09:41)
[2020-07-28] MEDS: LINZESS PO SCH ×2 (09:41→22:01)
[2020-07-28] MEDS: ELIQUIS PO SCH ×2 (09:41→22:01)
[2020-07-28] MEDS: LIORESAL PO SCH ×2 (09:41→22:02)
[2020-07-28] MEDS: PLAVIX PO SCH (09:42)
[2020-07-28] MEDS: ZINC SULFATE PO SCH ×2 (09:42→22:03)
[2020-07-28] MEDS: OFIRMEV IV 1000 MG VIAL 1,000 MG/100 ML VIAL IV PRN (09:53)
[2020-07-28] MEDS: VIBRAMYCIN 100 MG in D5W 250 ML IV 250 ML IV SCH ×2 (11:03→21:26)
[2020-07-28 11:20] LABS: ABG BASE EXCESS 4.7 mmol/L (-2.0-2.0); ABG HCO3 29.2 mmol/L (22-26)
[2020-07-28 11:21] LABS: ABG ALLEN TEST POS
[2020-07-28] MEDS ORDERED: DIFLUCAN 200 MG IV PREMIX* 200 MG/100 ML BAG IV ONE (13:22)
[2020-07-28] MEDS: NYSTATIN SUSP PO SCH ×3 (13:31→22:02)
[2020-07-28 13:59] LABS: CREATININE 0.66 mg/dL (0.70-1.30); GENTAMICIN,TROUGH 1.3 ug/mL (0-1.9)
[2020-07-28 21:33] LABS: CREATININE 0.58 mg/dL (0.70-1.30); VANCOMYCIN,TROUGH 8.8 ug/mL (15-20)
[2020-07-28] MEDS: ATIVAN INJ 2 MG VIAL IVP PRN (21:36)
[2020-07-28] MEDS: CELEXA PO SCH (22:01)
[2020-07-28] MEDS: MELATONIN PO SCH ×2 (22:02→22:59)
[2020-07-29] MEDS: GENTAMICIN INJ 80 MG in NS 100 ML IV 100 ML IV SCH ×4 (00:37→22:00)
[2020-07-29] MEDS: NS 1000 ML 1,000 ML IV SCH ×2 (02:34→20:00)
[2020-07-29] MEDS: NORCO 10/325 TAB PO SCH ×5 (03:58→21:26)
[2020-07-29] MEDS: NEURONTIN CAP 100 MG PO SCH ×3 (05:06→22:00)
[2020-07-29] MEDS: SOLU-Cortef INJ IVP SCH ×3 (05:08→22:00)
[2020-07-29] MEDS: VIBRAMYCIN 100 MG in D5W 250 ML IV 250 ML IV SCH (08:35)
[2020-07-29] MEDS: DUONEB 0.5 MG/3 MG (3 mL) NEB SCH ×4 (09:00→21:15)
[2020-07-29] MEDS: PULMICORT NEB TX 0.5 MG NEB SCH ×2 (09:00→21:15)
[2020-07-29] MEDS ORDERED: DEPO-TESTOSTERONE IM ONE (09:09)
[2020-07-29] MEDS: BROVANA IN SCH ×2 (09:10→21:20)
[2020-07-29] MEDS: COLACE CAP 100 MG PO SCH ×2 (09:42→20:46)
[2020-07-29] MEDS: NYSTATIN SUSP PO SCH ×4 (09:43→20:44)
[2020-07-29] MEDS: PLAVIX PO SCH (09:43)
[2020-07-29] MEDS: LINZESS PO SCH ×2 (09:44→20:45)
[2020-07-29] MEDS: ELIQUIS PO SCH ×2 (09:44→20:45)
[2020-07-29] MEDS: LIORESAL PO SCH ×2 (09:44→20:45)
[2020-07-29] MEDS: CRESTOR TAB 10 MG PO SCH (09:45)
[2020-07-29] MEDS: ZINC SULFATE PO SCH ×2 (09:45→20:42)
[2020-07-29] MEDS: ATIVAN TAB 1 MG PO SCH ×2 (09:46→20:42)
[2020-07-29] MEDS: THIAMINE HCL INJ IVP SCH ×2 (09:46→20:44)
[2020-07-29] MEDS: CORDARONE TAB 200 MG PO SCH (09:50)
[2020-07-29] MEDS: VANCOMYCIN IV *PREMIX 750 mg/150 ML BAG 750 MG/150 ML PIGGYBACK IV SCH (09:53)
[2020-07-29] MEDS: VANCOMYCIN IV *PREMIX 1 G/200 ML BAG 1 G/200 ML PIGGYBACK IV SCH ×2 (10:50→20:43)
[2020-07-29] MEDS ORDERED: PROCRIT or EPOGEN VIAL 10,000 UNITS SC SCH (11:00)
[2020-07-29 14:11] LABS: CREATININE 0.56 mg/dL (0.70-1.30)
[2020-07-29] MEDS: MELATONIN PO SCH (20:44)
[2020-07-29] MEDS: CELEXA PO SCH (20:46)
[2020-07-30] MEDS: NORCO 10/325 TAB PO SCH ×4 (03:21→21:04)
[2020-07-30] MEDS: NS 1000 ML 1,000 ML IV SCH (04:20)
[2020-07-30] MEDS: GENTAMICIN INJ 80 MG in NS 100 ML IV 100 ML IV SCH ×3 (05:55→22:34)
[2020-07-30] MEDS: SOLU-Cortef INJ IVP SCH (05:55)
[2020-07-30] MEDS: NEURONTIN CAP 100 MG PO SCH ×3 (05:55→21:02)
[2020-07-30 06:25] LABS: BASOPHILS % (AUTO) 0.6 % (0.2-1.0); HEMATOCRIT 25.2 % (42.0-54.0); HEMOGLOBIN 8.5 g/dL (13.5-18.0); LYMPHOCYTES # (AUTO) 0.5 X10^3/uL (1.3-2.9); LYMPHOCYTES % (AUTO) 20.2 % (21.0-51.0); MEAN CORPUSCULAR HEMOGLOBIN 33.2 pg (27.0-34.0); MEAN CORPUSCULAR HGB CONC 33.7 g/dL (33.0-35.0); MEAN CORPUSCULAR VOLUME 98.5 fL (80.0-100.0); MEAN PLATELET VOLUME 8.7 fL (7.4-11.0); MONOCYTES # (AUTO) 0.2 x10^3/uL (0.3-0.8); MONOCYTES % (AUTO) 6.2 % (0.0-13.0); NEUTROPHILS # (AUTO) 1.8 x10^3/uL (2.2-4.8); PLATELET COUNT 276 X10^3/uL (150.0-450.0); RED BLOOD COUNT 2.56 X10^6/uL (4.7-6.0); RED CELL DISTRIBUTION WIDTH 18.8 % (11.6-16.5); WHITE BLOOD COUNT 2.5 X10^3/uL (3.6-10.0)
[2020-07-30 06:57] LABS: ALANINE AMINOTRANSFERASE 28 Units/L (12-78); ALBUMIN 1.8 g/dL (3.4-5.0); ALKALINE PHOSPHATASE 75 Units/L (46-116); ASPARTATE AMINO TRANSFERASE 19 Units/L (15-37); BLOOD UREA NITROGEN 10 mg/dL (7-18); CALCIUM 8.3 mg/dL (8.5-10.1); CHLORIDE 104 mmol/L (98-107); COR CA(FOR HYPOALB) 10.1 mg/dL (8.5-10.1); COR NA(FOR HYPERGLY) 139 mmol/L (136-145); CREATININE 0.52 mg/dL (0.70-1.30); SODIUM 138 mmol/L (136-145); eGFR NON BLACK RACES > 60 (>60)
--- NOTE | 2020-07-30 07:35 | RAD ---
HISTORYFever, hypoxiaSTUDYChest AP [id number]/09/2021FINDINGSPatient is status post median sternotomy and CABG. The heart is u pper limits normal in size. No congestive heart failure is noted. Diffuse bilateral interstitial, suzi und-glass and alveolar infiltrates are unchanged. No pleural effusions are identified. Bony thorax is unremarkable.IMPRESSIONNo significant change from the prior examinationElectronically signed by: LIDYA BURKS (Jul 30, 2020 07:33:28)
[2020-07-30] MEDS: DUONEB 0.5 MG/3 MG (3 mL) NEB SCH ×4 (08:56→20:44)
[2020-07-30] MEDS: PULMICORT NEB TX 0.5 MG NEB SCH ×2 (08:56→20:44)
[2020-07-30] MEDS: BROVANA IN SCH ×2 (09:05→20:55)
[2020-07-30] MEDS: ZINC SULFATE PO SCH ×2 (09:29→21:02)
[2020-07-30] MEDS: LINZESS PO SCH ×2 (09:29→21:31)
[2020-07-30] MEDS: CORDARONE TAB 200 MG PO SCH (09:30)
[2020-07-30] MEDS: NYSTATIN SUSP PO SCH ×4 (09:30→21:30)
[2020-07-30] MEDS: COLACE CAP 100 MG PO SCH ×2 (09:30→21:30)
[2020-07-30] MEDS: ELIQUIS PO SCH ×2 (09:31→21:02)
[2020-07-30] MEDS: PLAVIX PO SCH (09:31)
[2020-07-30] MEDS: ATIVAN TAB 1 MG PO SCH ×2 (09:31→21:02)
[2020-07-30] MEDS: LIORESAL PO SCH ×2 (09:32→21:02)
[2020-07-30] MEDS: THIAMINE HCL INJ IVP SCH ×2 (09:32→21:30)
[2020-07-30] MEDS: CRESTOR TAB 10 MG PO SCH (09:32)
[2020-07-30] MEDS: VANCOMYCIN IV *PREMIX 1 G/200 ML BAG 1 G/200 ML PIGGYBACK IV SCH ×2 (09:32→20:59)
[2020-07-30] MEDS: CORTEF PO SCH ×3 (10:30→21:03)
[2020-07-30] MEDS ORDERED: CORTEF ONE ×2 (11:38→20:00)
[2020-07-30] MEDS: ZOFRAN INJ 4 MG VIAL IVP PRN (11:45)
--- NOTE | 2020-07-30 15:46 | DR.PROGNOT ---
Hospital Progress Notes - Progress Note for Day of: Progress Note Date: 07/30/20 - Chief Complaint Chief Complaint: leg ulcer is the same with slow healing . dressing was changed ,packing was removed . no active infection . nonecrosis . - Past Medical Family Social History Past Med/Fam/Surg Hx: No changes since H&P Allergies: Allergies No Known Drug Allergies Allergy (Verified 06/26/20 21:29) - Review Of Systems ROS: No change since H&P - Vital Signs Vital Signs: Temperature 97.8 F Pulse Rate [Left Brachial] 84 Pulse Rate 84 Respiratory Rate 16 Blood Pressure [Left Arm] 102/68 Blood Pressure 101/56 O2 Sat by Pulse Oximetry 95 - Physical Exam Oriented: Normal Eyes: Normal Ear: Normal Nose: Normal Respiratory: Diminished Cardiovascular: Normal : Normal GI:Auscultation: Normal GI: Tenderness: Normal Skin: Normal, Other (4x3 cm ulcer down to the muscles . no active infection or necrosis .) Musculoskeletal: Normal Psychiatric: Normal Mood Description: Calm Speech Pattern: Clear, Appropriate - Laboratory and Diagnostics Result Diagrams: 07/30/20 05:29 07/30/20 05:29 Labs: 07/26/20 18:04 Blood Blood Culture - Preliminary 07/26/20 17:50 Blood Blood Culture - Preliminary 07/23/20 11:40 Thigh - Right Gram Stain - Final 07/23/20 11:40 Thigh - Right Wound Culture - Final 07/23/20 02:00 Thigh - Right Gram Stain - Final 07/23/20 02:00 Thigh - Right Wound Culture - Final Laboratory WBC 2.5 X10^3/uL (3.6-10.0) L 07/30/20 05:29 RBC 2.56 X10^6/uL (4.7-6.0) L 07/30/20 05:29 Hgb 8.5 g/dL (13.5-18.0) L 07/30/20 05:29 Hct 25.2 % (42.0-54.0) L 07/30/20 05:29 MCV 98.5 fL (80.0-100.0) 07/30/20 05:29 MCH 33.2 pg (27.0-34.0) 07/30/20 05:29 MCHC 33.7 g/dL (33.0-35.0) 07/30/20 05:29 RDW 18.8 % (11.6-16.5) H 07/30/20 05:29 Plt Count 276 X10^3/uL (150.0-450.0) 07/30/20 05:29 Plt Count Comment Decreased (ADEQUATE) 07/26/20 05:55 MPV 8.7 fL (7.4-11.0) 07/30/20 05:29 Neut % (Auto) 73.0 % (42.0-75.0) 07/30/20 05:29 Lymph % (Auto) 20.2 % (21.0-51.0) L 07/30/20 05:29 [place] % (Auto) 6.2 % (0.0-13.0) 07/30/20 05:29 Eos % (Auto) 0.0 % (0.9-2.9) L 07/30/20 05:29 Baso % (Auto) 0.6 % (0.2-1.0) 07/30/20 05:29 Neut # (Auto) 1.8 x10^3/uL (2.2-4.8) L 07/30/20 05:29 Lymph # (Auto) 0.5 X10^3/uL (1.3-2.9) L 07/30/20 05:29 [place]inn # (Auto) 0.2 x10^3/uL (0.3-0.8) L 07/30/20 05:29 Eos # (Auto) 0.0 x10^3/uL (0.0-0.2) 07/30/20 05:29 Baso # (Auto) 0.0 X10^3/uL (0.0-0.1) 07/30/20 05:29 Absolute Nucleated RBC 0.2 /100WBC 07/30/20 05:29 Total Counted 100 07/26/20 05:55 Neutrophils % (Manual) 59 % (39-76) 07/26/20 05:55 Lymphocytes % (Manual) 26 % (13-43) 07/26/20 05:55 Monocytes % (Manual) 5 % (4-9) 07/26/20 05:55 Eosinophils % (Manual) 10 % (0-6) H 07/26/20 05:55 Plt Morphology Comment Normal (NORMAL) 07/26/20 05:55 RBC Morphology Abnormal (NORMAL) 07/26/20 05:55 Anisocytosis Slight A 07/26/20 05:55 Macrocytosis Slight A 07/25/20 05:30 PT 13.9 SECONDS (11.8-14.3) 07/22/20 20:37 INR Target Range - 07/22/20 20:37 INR 1.10 (0.8-1.3) 07/22/20 20:37 Sample Site Lr 07/28/20 11:14 ABG pH 7.450 (7.35-7.45) 07/28/20 11:14 ABG pCO2 42.0 mmHg (35.0-45.0) 07/28/20 11:14 ABG pO2 166.0 mmHg (80.0-100.0) H 07/28/20 11:14 ABG HCO3 29.2 mmol/L (22-26) H 07/28/20 11:14 ABG O2 Saturation 100.0 % (90-100) 07/28/20 11:14 ABG Base Excess 4.7 mmol/L (-2.0-2.0) H 07/28/20 11:14 Mauro Test Pos 07/28/20 11:14 A-a Gradient 331.0 mmHg 07/28/20 11:14 FiO2 77.0 07/28/20 11:14 Blood Gas Comments Pt jaswinder well. cdn 07/28/20 11:14 Sodium 138 mmol/L (136-145) 07/30/20 05:29 Corrected Sodium 139 mmol/L (136-145) 07/30/20 05:29 Potassium 3.5 mmol/L (3.5-5.1) 07/30/20 05:29 Chloride 104 mmol/L (98-107) 07/30/20 05:29 Carbon Dioxide 28.0 mmol/L (21-32) 07/30/20 05:29 BUN 10 mg/dL (7-18) 07/30/20 05:29 Creatinine 0.52 mg/dL (0.70-1.30) L 07/30/20 05:29 Est GFR (MDRD) Af Amer > 60 (>60) 07/30/20 05:29 Est GFR (MDRD) Non-Af > 60 (>60) 07/30/20 05:29 Glucose 135 mg/dL (65-99) H 07/30/20 05:29 Calcium 8.3 mg/dL (8.5-10.1) L 07/30/20 05:29 Corrected Calcium 10.1 mg/dL (8.5-10.1) 07/30/20 05:29 Magnesium 2.1 mg/dL (1.7-2.9) 07/28/20 05:38 Iron 20 ug/dL (50-175) L 07/23/20 04:45 Transferrin 158 mg/dL (202-364) L 07/23/20 04:45 Ferritin 470 ng/mL (26-388) H 07/23/20 04:45 Total Bilirubin 0.40 mg/dL (0.2-1.0) 07/30/20 05:29 AST 19 Units/L (15-37) 07/30/20 05:29 ALT 28 Units/L (12-78) 07/30/20 05:29 Alkaline Phosphatase 75 Units/L (46-116) 07/30/20 05:29 Troponin I 0.05 ng/mL (0-1.5) 07/22/20 20:37 B-Natriuretic Peptide 286 pg/mL (0-79) H 07/22/20 20:37 Total Protein 5.0 g/dL (6.4-8.2) L 07/30/20 05:29 Albumin 1.8 g/dL (3.4-5.0) L 07/30/20 05:29 Globulin 3.2 g/dL (2.5-4.5) 07/30/20 05:29 Albumin/Globulin Ratio 0.6 Ratio (1.1-2.1) L 07/30/20 05:29 Total PSA 1.20 ng/mL (0.13-4.0) 07/26/20 05:55 Vitamin B12 638 pg/mL (193-986) 07/23/20 04:45 Folate > 20.0 ng/mL (>8.6) 07/23/20 04:45 Total Testosterone 46 ng/dL (300-720) L 07/25/20 05:30 Specimen Type Random urine 07/26/20 17:10 Urine Color Yellow (YELLOW) 07/26/20 17:10 Urine Appearance Clear (CLEAR) 07/26/20 17:10 Urine pH 7.0 (5.0 - 8.0) 07/26/20 17:10 Ur Specific [place] 1.005 (1.000-1.030) 07/26/20 17:10 Urine Protein Negative (NEGATIVE) 07/26/20 17:10 Urine Glucose (UA) Negative (NEGATIVE) 07/26/20 17:10 Urine Ketones Negative (NEGATIVE) 07/26/20 17:10 Urine Occult Blood Negative (NEGATIVE) 07/26/20 17:10 Urine Nitrite Negative (NEGATIVE) 07/26/20 17:10 Urine Bilirubin Negative (NEGATIVE) 07/26/20 17:10 Urine Urobilinogen 1+ (NORMAL) 07/26/20 17:10 Ur Leukocyte Esterase Negative (NEGATIVE) 07/26/20 17:10 Stl C. diff Tox B Gene Negative (NEGATIVE) 07/27/20 09:06 Stl C. diff [id number] Negative (NEGATIVE) 07/27/20 09:06 Gentamicin Peak 5.9 ug/mL (5-10) 07/29/20 15:49 Gentamicin Trough 2.0 ug/mL (0-1.9) H 07/29/20 13:30 Vancomycin Trough 8.8 ug/mL (15-20) L 07/28/20 20:50 SARS CoV-2 RNA Rapid AIDAN Negative (NEGATIVE) 07/22/20 22:36 Tissue Pathology To follow 07/23/20 11:40 Blood Type A POSITIVE 07/26/20 18:04 Antibody Screen Negative 07/26/20 09:22 Crossmatch See Detail 07/26/20 09:22 Tx React Prelim Eval No evidence of htr 07/26/20 18:04 Tx React Symptoms Fever,chills, 07/26/20 18:04 Reaction Path Interpret No evidence of htr 07/26/20 18:[address]graham chávez 07/26/20 18:04 Blood Bank Comment Performed by Nerissa 07/26/20 18:04 - Assessment and Plan 1: Rt leg ulcer , ( s/p excisional debridement ) good control of infection . same local care , IV ATB . could close the wound early next week.. - Problem Patient Problems: Patient Problems Hypoxemia (Acute) R09.02 Multifocal pneumonia (Acute) J18.9 Dyspnea (Acute) R06.00 COPD exacerbation (Acute) J44.1 Ulcer of right leg (Acute) L97.919
[2020-07-30 16:01] LABS: CREATININE 0.57 mg/dL (0.70-1.30)
[2020-07-30] MEDS ORDERED: PHARMACY COMMENT IV ONE (20:30)
[2020-07-30 20:44] LABS: CREATININE 0.67 mg/dL (0.70-1.30); VANCOMYCIN,TROUGH 16.9 ug/mL (15-20)
[2020-07-30] MEDS: CELEXA PO SCH (21:02)
[2020-07-30] MEDS: MELATONIN PO SCH (21:03)
[2020-07-31] MEDS: ATIVAN INJ 2 MG VIAL IVP PRN (02:13)
[2020-07-31] MEDS: NS 1000 ML 1,000 ML IV SCH ×2 (03:24→05:51)
[2020-07-31] MEDS ORDERED: CORTEF ONE (04:39)
[2020-07-31] MEDS: NORCO 10/325 TAB PO SCH ×2 (05:16→11:05)
[2020-07-31] MEDS: GENTAMICIN INJ 80 MG in NS 100 ML IV 100 ML IV SCH (05:17)
[2020-07-31] MEDS: CORTEF PO SCH (05:17)
[2020-07-31] MEDS: NEURONTIN CAP 100 MG PO SCH (05:17)
[2020-07-31 06:04] LABS: BASOPHILS % (AUTO) 0.4 % (0.2-1.0); EOSINOPHILS % (AUTO) 0.3 % (0.9-2.9); HEMATOCRIT 26.6 % (42.0-54.0); HEMOGLOBIN 8.7 g/dL (13.5-18.0); LYMPHOCYTES # (AUTO) 0.9 X10^3/uL (1.3-2.9); LYMPHOCYTES % (AUTO) 15.4 % (21.0-51.0); MEAN CORPUSCULAR HEMOGLOBIN 32.6 pg (27.0-34.0); MEAN CORPUSCULAR HGB CONC 32.6 g/dL (33.0-35.0); MEAN CORPUSCULAR VOLUME 99.9 fL (80.0-100.0); MEAN PLATELET VOLUME 8.2 fL (7.4-11.0); MONOCYTES # (AUTO) 0.5 x10^3/uL (0.3-0.8); MONOCYTES % (AUTO) 8.9 % (0.0-13.0); NEUTROPHILS # (AUTO) 4.2 x10^3/uL (2.2-4.8); PLATELET COUNT 284 X10^3/uL (150.0-450.0); RED BLOOD COUNT 2.66 X10^6/uL (4.7-6.0); RED CELL DISTRIBUTION WIDTH 19.5 % (11.6-16.5); WHITE BLOOD COUNT 5.5 X10^3/uL (3.6-10.0)
[2020-07-31 06:14] LABS: ALANINE AMINOTRANSFERASE 29 Units/L (12-78); ALBUMIN 1.9 g/dL (3.4-5.0); ALKALINE PHOSPHATASE 99 Units/L (46-116); ASPARTATE AMINO TRANSFERASE 23 Units/L (15-37); BLOOD UREA NITROGEN 7 mg/dL (7-18); CALCIUM 8.2 mg/dL (8.5-10.1); CARBON DIOXIDE 30.7 mmol/L (21-32); CHLORIDE 104 mmol/L (98-107); COR CA(FOR HYPOALB) 9.9 mg/dL (8.5-10.1); CREATININE 0.54 mg/dL (0.70-1.30); SODIUM 141 mmol/L (136-145); eGFR NON BLACK RACES > 60 (>60)
[2020-07-31 06:43] LABS: ANISOCYTOSIS SLIGHT; PLATELET MORPHOLOGY COMMENT NORMAL (NORMAL)
[2020-07-31] MEDS: VANCOMYCIN IV *PREMIX 1 G/200 ML BAG 1 G/200 ML PIGGYBACK IV SCH (08:43)
[2020-07-31] MEDS: ATIVAN TAB 1 MG PO SCH (09:02)
[2020-07-31] MEDS: COLACE CAP 100 MG PO SCH (09:02)
[2020-07-31] MEDS: ELIQUIS PO SCH (09:05)
[2020-07-31] MEDS: CRESTOR TAB 10 MG PO SCH (09:05)
[2020-07-31] MEDS: LINZESS PO SCH (09:05)
[2020-07-31] MEDS: ZINC SULFATE PO SCH (09:05)
[2020-07-31] MEDS: NYSTATIN SUSP PO SCH (09:05)
[2020-07-31] MEDS: THIAMINE HCL INJ IVP SCH (09:06)
[2020-07-31] MEDS: PLAVIX PO SCH (09:06)
[2020-07-31] MEDS: CORDARONE TAB 200 MG PO SCH (09:08)
[2020-07-31] MEDS: LIORESAL PO SCH (09:08)
[2020-07-31] MEDS: BROVANA IN SCH (09:37)
[2020-07-31] MEDS: DUONEB 0.5 MG/3 MG (3 mL) NEB SCH (09:37)
[2020-07-31] MEDS: PULMICORT NEB TX 0.5 MG NEB SCH (09:37)
[2020-07-31] MEDS: ZOFRAN INJ 4 MG VIAL IVP PRN (11:06)
[2020-07-31 11:55] VITALS: BP 113/73
== END 2020-07-31 11:45 | disposition short-term general hospital (02) | DRG 167 ==
LOC: ER 19:08 → MED/SURG 19:08
PROVIDERS: ADMIT Obstetrics & Gynecology Obstetrics; ATTEND Obstetrics & Gynecology Obstetrics
DX: J84.10 Pulmonary fibrosis, unspecified; I87.2 Venous insufficiency (chronic) (peripheral); I48.91 Unspecified atrial fibrillation; B37.0 Candidal stomatitis; R13.11 Dysphagia, oral phase; M54.5 Low back pain; R26.89 Other abnormalities of gait and mobility; E29.1 Testicular hypofunction; R06.02 Shortness of breath; D53.1 Other megaloblastic anemias, not elsewhere classified; L97.119 Non-pressure chronic ulcer of right thigh with unspecified severity; R09.02 Hypoxemia; E27.40 Unspecified adrenocortical insufficiency; R79.89 Other specified abnormal findings of blood chemistry; Z11.52 Encounter for screening for COVID-19; B94.8 Sequelae of other specified infectious and parasitic diseases; R94.31 Abnormal electrocardiogram [ECG] [EKG]; I25.10 Atherosclerotic heart disease of native coronary artery without angina pectoris; Z99.81 Dependence on supplemental oxygen